=== PATIENT | male | born 1950 | race Caucasian/White ===

== ENCOUNTER → 2018-01-04 16:57 | Outpatient (CLI) | payer BC, SELFPAY ==
[2018-01-04 16:28] VITALS: BP 120/60; BMI 27.2
[2018-01-04 18:32] LABS: Anion Gap 8 (5-15); BUN 23 mg/dL (7-18); BUN/Creat Ratio 23.5 RATIO (10-20); Calcium,Total 8.9 mg/dL (8.5-10.1); Chloride 106 mmol/L (98-107); Creatinine, Serum 0.98 mg/dL (0.70-1.30); EST Glomerular Filtration Rate 82 mL/min (>60); Est Glom Filt Rate - Afr Amer 99 mL/min (>60); Glucose 86 mg/dL (74-106); Magnesium 2.2 mg/dL (1.6-2.6); Potassium 4.3 mmol/L (3.5-5.1); Sodium Level 140 mmol/L (136-145); T4 Total, Thyroxin 8.1 ug/dL (4.5-12.1); Thyroid Stim Hormone (TSH) 2.04 uIU/mL (0.358-3.74)
== END ==
PROVIDERS: Family Provider Family Medicine; PCP Family Medicine; Visit Provider Internal Medicine Cardiovascular Disease
DX: I25.5 Ischemic cardiomyopathy (principal)
CPT/HCPCS: 80048; 83735; 84436; 84443

== ENCOUNTER → 2018-02-04 06:40 | Outpatient (CLI) | payer BC, SELFPAY ==
--- NOTE | 2018-02-04 06:42 | ECHOD_ITS ---
Reason For Study: Arrhythmia Procedure This was a 2D Doppler, Color Flow transthoracic echocardiogram. Exam performed in department. Left Ventricle Normal LV size. The estimated ejection fraction is 37 %. Transmitral diastolic flow velocities suggest mild (stage 1) diastolic dysfunction (reversed pattern). Moderately severe segmental systolic dysfunction (see wall motion). Anterio-Basal: Normal. Lateral-Basal: Normal. Posterior- Basal: Akinetic. Infero-Basal: Akinetic. Basal inferoseptal: Severely Hypokinetic. Basal anteroseptal: Normal. Mid-Anterior : Hypokinetic. Mid-Lateral : Hypokinetic. Mid-Posterior: Akinetic. Mid-Inferior: Akinetic. Mid-inferoseptal : Mildly hypokinetic. [place] : Hypokinetic. Right Ventricle Normal RV size. ICD or pacer leads identified within the right ventricle. Normal systolic function. Atria Normal left atrium. Normal right atrium. Mitral Valve Normal mitral valve. Moderate (2+) eccentric mitral valve insufficiency. Tricuspid Valve Normal tricuspid valve. Mild to moderate (1-2+) tricuspid valve insufficiency. Pulmonary artery systolic pressure is 34 mmHg. Aortic Valve Trisinus/trileaflet aortic valve. Mild focal aortic valve calcification. Pulmonic Valve The pulmonic valve is not well visualized. Great Vessels Normal aortic root. The pulmonary artery is normal size. Normal inferior vena cava. Pericardium/Pleural No pericardial effusion. Medication Definity0.3ml given slow IV push to enhance endocardial definition. MMode/2D Measurements & Calculations LVIDd: 5.4 cm IVSd: 1.2 cm Ao root diam: 3.3 cm LVIDs: 4.4 cm LVPWd: 0.66 cm LA dimension: 5.1 cm RVDd: 3.4 cm FS: 18.4 % LAV(MOD-bp): 49.4 ml LA A4 area: 19.2 cm2 RA A4 area: 12.1 cm2 LAV(MOD-bp) Indexed: 25.3 ml/m2 LAV(MOD-sp2): 42.2 ml LAV(MOD-sp4): 54.2 ml Doppler Measurements & Calculations MV E max jake: 87.6 cm/sec Lat Peak E' Jake: 4.8 cm/sec Med Peak E' Jake: 6.6 cm/sec MV A max jake: 91.9 cm/sec E/E' lat: 18.1 E/E' med: 13.3 MV E/A: 0.95 Ao V2 max: 135.2 cm/sec LV V1 max: 87.6 cm/sec PA V2 max: 87.4 cm/sec Ao max P.3 mmHg LV V1 max P.1 mmHg TR max jake: 272.3 cm/sec TR max P.7 mmHg Interpretation Summary Normal LV size. The estimated ejection fraction is 37 %. Transmitral diastolic flow velocities suggest mild (stage 1) diastolic dysfunction (reversed pattern). Moderately severe segmental systolic dysfunction (see wall motion). Moderate (2+) eccentric mitral valve insufficiency. Pulmonary artery systolic pressure is 34 mmHg. Compared to the previous the MR is worse. Ordering Physician: Hans Logan Referring Physician: Joaquim Brush MD Performed By: Christine Azar RDCS
--- NOTE | 2018-02-04 10:06 | STRESSREP ---
Stress Test Report Exercise myocardial perfusion stress test. 67-year-old man with a history of coronary artery disease status post ICD implantation. Stress protocol: Resting EKG demonstrates sinus bradycardia with a rate of 55 bpm left bundle branch block pattern noted first-degree AV block present. Patient exercised according to the regular Michael protocol for total duration of 6 minutes. The maximum heart rate attained was 98 bpm which was 63% maximum predicted heart rate the maximum workload attained was 7 metabolic equivalents. The patient is noted to be on a beta-rosamaria and was instructed to take it. The patient maintained the left bundle branch block pattern throughout the recording no acute changes were noted. The resting blood pressure is 110/70 mmHg with a peak blood pressure 130/74 mmHg. No clinical angina was noted. Myocardial perfusion protocol. 10.9 mCi of technetium 99m sestamibi was injected at rest. The patient exercised according to regular Michael protocol attaining 7 metabolic equivalents at peak exercise 32.6 mCi of technetium 99m sestamibi was injected. Stress images were obtained. Stress and rest images were reconstructed and compared in the short axis vertical long and horizontal long axis. Gated images were also obtained. Perfusion SPECT analysis: Review of the cardiac silhouette demonstrates an upper normal size. The stress images demonstrated normal uptake of tracer noted in the anterior septum anterior wall and anterolateral wall. There is a large defect noted involving the basal to mid inferior wall as well as the inferior apical wall. There is a very small portion in the distal inferior wall with normal perfusion. The resting images appear to demonstrate a similar patent. The above is suggestive of an extensive previous inferior infarct and inferior apical infarct. No reversibility is noted suggest ischemia. Gated SPECT analysis: The gated ejection fraction is noted to be 30% with akinesis of the inferior wall. Apical dyskinesis cannot be completely excluded. Conclusion: Exercise myocardial perfusion stress test with no evidence of ischemia noted at a moderate workload. Ischemic cardiomyopathy present.
== END ==
PROVIDERS: Family Provider Family Medicine; PCP Family Medicine; Visit Provider Internal Medicine Cardiovascular Disease
DX: I25.5 Ischemic cardiomyopathy (principal)
CPT/HCPCS: 78452; 93017; 93306; A9500; Q9957; A4216

== ENCOUNTER → 2018-06-10 15:31 | Outpatient (CLI) | payer BC, SELFPAY ==
--- NOTE | 2018-06-10 15:38 | RAD_ITS ---
STUDY: X-RAY CHEST REASON FOR EXAM: Male, 67 years old. Preoperative. ICD generator change. TECHNIQUE: Portable chest COMPARISON: 11/25/2014 FINDINGS: Left pectoral single lead AICD device, stable. No cardiomegaly. Normal mediastinal silhouette. No effusion or pneumothorax. Clear lungs. Implanted electronic device in the left lateral chest wall. No acute osseous or upper abdominal process. RAD/Chest PA and Lateral IMPRESSION: No acute cardiopulmonary process. Electronically Signed: Joey Grove, at 15:44 EDT Tel , Service support ,
[2018-06-10 15:49] LABS: Bacteria 0 SEEN /hpf (None Seen); Mucous, Urine 0 SEEN /hpf (<or=2+); Red Blood Cells-Urine 0 SEEN /hpf (0-5); Squamous Epithelial Cells - UA 0 SEEN /hpf (0-5)
[2018-06-10 16:13] LABS: Hematocrit 48.5 % (40-54); Hemoglobin 16.7 g/dl (13.0-16.5); Mean Corp Hgb Conc 34.4 g/gl (32-36); Mean Corpuscular Hgb 30.1 pg (27.0-32.0); Mean Corpuscular Volume 87.5 fL (80-94); Mean Platelet Vol. 10.2 fl (6.2-12.0); Platelet Count 184 K/mm3 (150-450); RBC Distribution Width CV 13.2 % (11.6-14.6); RBC Distribution Width SD 42.7 fl (35.1-43.9); Red Blood Count 5.54 M/mm3 (4.6-6.2); White Blood Count 8.1 K/mm3 (4.4-11.0)
[2018-06-10 16:25] LABS: Scan Indicated on CBC? Y/N NO
[2018-06-10 16:46] LABS: International Normalized Ratio 1.2; Prothrombin Time (Protime)PT. 14.8 SECONDS (11.7-14.9)
[2018-06-10 17:09] LABS: Color, Urine Yellow (Yellow); Glucose, Dipstick NEGATIVE (Normal); Ketone-Dipstick Negative (Negative); Leukocyte Esterase-Dipstick 25 /ul (Negative); Nitrite-Dipstick Negative (Negative); Occult Blood-Urine Negative /ul (Negative); Protein-Dipstick Negative (Negative); Urine Bilirubin Dipstick Negative (Negative); Urine Clarity Clear (Clear); Urine Urobilinogen Normal (Normal); Urine pH 6.5 (5.0 - 8.0)
[2018-06-10 17:10] LABS: Anion Gap 7 (5-15); BUN 17 mg/dL (7-18); BUN/Creat Ratio 14.3 RATIO (10-20); Calcium,Total 9.3 mg/dL (8.5-10.1); Chloride 105 mmol/L (98-107); Creatinine, Serum 1.19 mg/dL (0.70-1.30); EST Glomerular Filtration Rate 65 mL/min (>60); Est Glom Filt Rate - Afr Amer 79 mL/min (>60); Glucose 87 mg/dL (74-106); Potassium 4.5 mmol/L (3.5-5.1); Sodium Level 140 mmol/L (136-145)
[2018-06-10 17:15] LABS: White Blood Cells 0-5 SEEN /hpf (0-5)
== END ==
PROVIDERS: Family Provider Family Medicine; PCP Family Medicine; Visit Provider Internal Medicine Cardiovascular Disease
DX: I49.8 Other specified cardiac arrhythmias (principal); I25.5 Ischemic cardiomyopathy; I49.01 Ventricular fibrillation; Z95.810 Presence of automatic (implantable) cardiac defibrillator
CPT/HCPCS: 36415; 71046; 80048; 81001; 85027; 85610

== ENCOUNTER 2018-06-23 08:08 | Day surgery (SDC) | payer BC, SELFPAY ==
[2018-06-22 08:42] VITALS: BMI 29.8
--- NOTE | 2018-06-23 10:49 | PCM.OP.BLANK ---
Operative Report Date of Procedure: 06/23/18 The patient has a single chamber ICD but over the years has now progressed to CHB with sinus rhythm. His RV pacing is 98% and NYHA Class III with EF 35%. I recommend revision to a dual chamber ICD with LV lead addition. He recognizes risks and benefits and agrees to proceed with revision at [facility]. Since he has a prior lead extraction in 2002 and has a new lead in place, I completed a left upper extremity venogram to exclude venous stenosis. Contrast shows bracheocephalic and cephalic as well as distal axillary veins are patent. In mid- left axillary vein the vein contour progresses superiorly, then medially and inferiorly with filling of the distal axillary vein/subclavian and inominate vein. The course of the vein is large caliper and adequate for 2 additional leads but the mid segment of the axillary vein is likely 100% occluded for a segment of about 2-2.5cm. No complications Device set to prior parameters and pt left the room in stable condition
--- NOTE | 2018-06-23 11:10 | OP.PCM_ITS ---
Operative Report Date of Procedure: 06/23/18 The patient has a single chamber ICD but over the years has now progressed to CHB with sinus rhythm. His RV pacing is 98% and NYHA Class III with EF 35%. I recommend revision to a dual chamber ICD with LV lead addition. He recognizes risks and benefits and agrees to proceed with revision at [facility]. Since he has a prior lead extraction in 2002 and has a new lead in place, I completed a left upper extremity venogram to exclude venous stenosis. Contrast shows bracheocephalic and cephalic as well as distal axillary veins are patent. In mid- left axillary vein the vein contour progresses superiorly, then medially and inferiorly with filling of the distal axillary vein/subclavian and inominate vein. The course of the vein is large caliper and adequate for 2 additional leads but the mid segment of the axillary vein is likely 100% occluded for a segment of about 2-2.5cm. No complications Device set to prior parameters and pt left the room in stable condition
== END 2018-06-23 10:50 | disposition home or self-care (01) ==
LOC: CLSP 08:09
PROVIDERS: Family Provider Family Medicine; PCP Family Medicine; Visit Provider Internal Medicine Cardiovascular Disease
DX: I25.10 Atherosclerotic heart disease of native coronary artery without angina pectoris (principal); I25.5 Ischemic cardiomyopathy; I49.01 Ventricular fibrillation; Z95.810 Presence of automatic (implantable) cardiac defibrillator; I25.2 Old myocardial infarction; Z87.891 Personal history of nicotine dependence; Z79.82 Long term (current) use of aspirin; Z79.899 Other long term (current) drug therapy
CPT/HCPCS: 36005; 75820; J7040; J7050; Q9967

== ENCOUNTER → 2018-07-19 12:52 | Outpatient (CLI) | payer BC, SELFPAY | PROVIDERS: Family Provider Family Medicine; PCP Family Medicine; Visit Provider Physician Assistant Medical | DX: I25.5 Ischemic cardiomyopathy (principal); M54.2 Cervicalgia; Z95.0 Presence of cardiac pacemaker | CPT/HCPCS: 71046; 93882 ==

== ENCOUNTER → 2018-07-20 16:21 | Outpatient (CLI) | payer BC, SELFPAY ==
[2018-07-20 17:55] LABS: Anion Gap 5 (5-15); BUN 17 mg/dL (7-18); BUN/Creat Ratio 17.4 RATIO (10-20); Calcium,Total 8.9 mg/dL (8.5-10.1); Chloride 105 mmol/L (98-107); Creatinine, Serum 0.98 mg/dL (0.70-1.30); EST Glomerular Filtration Rate 82 mL/min (>60); Est Glom Filt Rate - Afr Amer 99 mL/min (>60); Glucose 81 mg/dL (74-106); Potassium 4.6 mmol/L (3.5-5.1); Sodium Level 139 mmol/L (136-145)
== END ==
PROVIDERS: Family Provider Family Medicine; PCP Family Medicine
DX: I50.22 Chronic systolic (congestive) heart failure (principal)
CPT/HCPCS: 36415; 80048

== ENCOUNTER → 2018-07-28 12:51 | Outpatient (CLI) | payer BC, SELFPAY | PROVIDERS: Family Provider Family Medicine; PCP Family Medicine; Visit Provider Physician Assistant Medical | DX: I82.C11 Acute embolism and thrombosis of right internal jugular vein (principal) | CPT/HCPCS: 93971 ==

== ENCOUNTER → 2018-08-18 15:52 | Outpatient (CLI) | payer BC, SELFPAY ==
[2018-08-18 17:43] LABS: Anion Gap 7 (5-15); BUN 22 mg/dL (7-18); BUN/Creat Ratio 23.6 RATIO (10-20); Calcium,Total 8.8 mg/dL (8.5-10.1); Chloride 103 mmol/L (98-107); Creatinine, Serum 0.93 mg/dL (0.70-1.30); EST Glomerular Filtration Rate 86 mL/min (>60); Est Glom Filt Rate - Afr Amer 104 mL/min (>60); Glucose 79 mg/dL (74-106); Potassium 4.5 mmol/L (3.5-5.1); Sodium Level 136 mmol/L (136-145)
[2018-08-18 18:02] LABS: BNP,B-Type NATRIURETIC PEPTIDE 14.4 pg/mL (0-100)
== END ==
PROVIDERS: Family Provider Family Medicine; PCP Family Medicine; Visit Provider Internal Medicine Cardiovascular Disease
DX: I25.5 Ischemic cardiomyopathy (principal)
CPT/HCPCS: 36415; 80048; 83880

== ENCOUNTER → 2018-11-07 13:45 | Outpatient (CLI) | payer BC, SELFPAY ==
[2018-08-18 15:21] VITALS: BMI 30.5
--- NOTE | 2018-11-07 13:55 | ECHOD_ITS ---
Reason For Study: Ischemic CMP Procedure This was a 2D Doppler, Color Flow transthoracic echocardiogram. Exam performed in department. Left Ventricle Normal LV size. The estimated ejection fraction is 40 %. Stage 1 diastolic dysfunction. Mid- Posterior: Akinetic. Posterior-Basal: Akinetic. Infero-Basal: Akinetic. Mid-Inferior: Akinetic. [place] : Severely Hypokinetic. Right Ventricle Normal RV size. ICD or pacer leads identified within the right ventricle. Normal systolic function. Atria Normal left atrium. Normal right atrium. Mitral Valve Normal mitral valve. Mild-Moderate (1-2+) eccentric mitral valve insufficiency. Tricuspid Valve Normal tricuspid valve. Mild (1+) tricuspid valve insufficiency. Pulmonary artery systolic pressure is 30 mmHg. Aortic Valve Trisinus/trileaflet aortic valve. Mild focal aortic valve calcification. Pulmonic Valve Normal pulmonic valve. Great Vessels Normal aortic root. The pulmonary artery is normal size. Normal inferior vena cava. Pericardium/Pleural No pericardial effusion. MMode/2D Measurements & Calculations LVIDd: 6.4 cm IVSd: 1.3 cm Ao root diam: 3.4 cm LVIDs: 4.8 cm LVPWd: 0.55 cm RVDd: 3.5 cm FS: 24.4 % LAV(MOD-bp): 47.6 ml EDV(MOD-sp4): 167.9 ml EDV(MOD-sp2): 158.1 ml LAV(MOD-bp) Indexed: 26.0 ml/m2 ESV(MOD-sp4): 98.7 ml EF(MOD-sp2): 39.7 % LAV(MOD-sp2): 50.9 ml EF(MOD-sp4): 41.2 % LAV(MOD-sp4): 44.1 ml SV(MOD-sp4): 69.3 ml SV(MOD-sp2): 62.8 ml LA A4 area: 16.1 cm2 LA dimension(2D): 3.9 cm RA A4 area: 13.2 cm2 Doppler Measurements & Calculations MV E max jake: 80.3 cm/sec Lat Peak E' Jake: 3.6 cm/sec Med Peak E' Jake: 4.8 cm/sec MV A max jake: 114.0 cm/sec E/E' lat: 22.2 E/E' med: 16.6 MV E/A: 0.70 Ao V2 max: 156.0 cm/sec LV V1 max: 114.7 cm/sec PA V2 max: 91.3 cm/sec Ao max P.7 mmHg LV V1 max P.3 mmHg TR max jake: 249.6 cm/sec TR max P.0 mmHg Interpretation Summary Normal LV size. The estimated ejection fraction is 40 %. Stage 1 diastolic dysfunction. Mild (1+) tricuspid valve insufficiency. Pulmonary artery systolic pressure is 30 mmHg. Compared to previous study, the left ventricular systolic function is the same.. Ordering Physician: Hans Logan Referring Physician: Joaquim Brush MD Performed By: Christine Azar RDCS
--- NOTE | 2018-11-07 13:55 | VDUE_ITS ---
Reason For Study: F/U LT IJV clot Left Proximal Left jugular vein is spontaneous, widely patent, phasic, with no intraluminal echogenicity noted. Left subclavian vein is spontaneous, widely patent, phasic, with no intraluminal echogenicity noted. Left Arm Left axillary vein is spontaneous, patent, phasic, competent, compressible and demonstrates augmentation. Left brachial vein is compressible. Left cephalic vein is compressible. Left basilic vein is compressible. Left Lower Arm Left radial vein is compressible. Left ulnar vein is compressible. Interpretation Summary No evidence for acute deep venous thrombosis[left] upper extremity with patent and compressible cephalic and basilic veins. Ordering Physician: Jose Hicks MD Referring Physician: Hans Logan Performed By: Kim Bryson RVT ?
== END ==
PROVIDERS: Family Provider Family Medicine; PCP Family Medicine; Referring Provider Internal Medicine Cardiovascular Disease; Visit Provider Internal Medicine Cardiovascular Disease
DX: I25.5 Ischemic cardiomyopathy (principal); I82.C12 Acute embolism and thrombosis of left internal jugular vein
CPT/HCPCS: 93306; 93971

== ENCOUNTER → 2019-10-02 14:30 | Outpatient (CLI) | payer MEDICARE, OTHER, SELFPAY ==
[2019-05-30 11:34] VITALS: BMI 29.5
== END ==
PROVIDERS: Family Provider Family Medicine; PCP Family Medicine; Referring Provider Family Medicine; Visit Provider Family Medicine
DX: R30.0 Dysuria (principal)
CPT/HCPCS: 87077; 87086; 87088; 87186

== ENCOUNTER → 2019-12-12 06:26 | Outpatient (CLI) | payer MEDICARE, OTHER, SELFPAY ==
[2019-05-30 11:34] VITALS: BMI 29.5
--- NOTE | 2019-12-12 07:28 | ART_ITS ---
Reason For Study: PVD Procedure A bilateral lower extremity continuous wave Doppler with analog waveform analysis and ankle brachial indexes. Left Segmental Pressures Left brachial= 126mmHg. Left posterior tibial artery = 148mmHg. Left dorsalis pedis artery = 134mmHg. The left dorsalis pedis waveforms are triphasic. The left posterior tibial artery waveforms are triphasic. Right Segmental Pressures Right brachial= 121mmHg. Right posterior tibial artery = 136mmHg. Right dorsalis pedis artery = 136mmHg. The right dorsalis pedis waveforms are triphasic. The right posterior tibial artery waveforms are triphasic. Indices The right ankle brachial index by the dorsalis pedis is 1.08. The right ankle brachial index by the posterior tibial artery is 1.08. The left ankle brachial index by the posterior tibial artery is 1.17. The left ankle brachial index by the dorsalis pedis is 1.06. Interpretation Summary Triphasic Doppler waveforms are noted at ankle level bilaterally. Pulse-volume recordings appear satisfactory at ankle level bilaterally. Resting ankle-brachial indices are normal bilaterally. There is no evidence of significant arterial occlusive disease in the lower extremities bilaterally. Ordering Physician: Bora Brush Performed By: [facility]
--- NOTE | 2019-12-12 08:06 | US_ITS ---
PROCEDURES: ULTRASOUND AORTA REASON FOR EXAM: Male, 68 years old. AAA screening TECHNIQUE: Ultrasound evaluation of the aorta was performed with real-time and static argueta-scale imaging. COMPARISON: None. FINDINGS: The study is limited secondary to excessive bowel gas. There is no elongation or tortuosity of the abdominal aorta. Aorta measures: Proximal 2.6 cm. Middle 2.5 cm. Distal 1.7 cm. Aorta measure transversely: Proximal 1.8 cm. Middle 1.5 cm. Distal 1.3 cm. Right iliac artery measures: 1.2 cm. Right iliac artery measure transversely: 0.8 cm. Left iliac artery measures: 1.0 cm. Left iliac artery measure transversely: 0.7 cm. There is no demonstrated aneurysm.. US/US ABD AORTA SCREEN/AAA IMPRESSION: Normal abdominal aorta. Electronically Signed: Robbie Lockett MD at 17:20 EST , Service support ,
== END ==
PROVIDERS: Family Provider Family Medicine; PCP Family Medicine; Referring Provider Family Medicine; Visit Provider Family Medicine
DX: I73.9 Peripheral vascular disease, unspecified (principal); Z13.6 Encounter for screening for cardiovascular disorders
CPT/HCPCS: 76706; 93922

== ENCOUNTER 2019-12-20 12:00 | Outpatient (RCR) | payer MEDICARE, OTHER, SELFPAY ==
[2019-05-30 11:34] VITALS: BMI 29.5
--- NOTE | 2019-12-14 13:59 | HP.PTEVAL ---
Patient's Visit Information NICOL PHELPS is a 68 year old M referred to Physical Therapy by Bora Brush MD with a diagnosis of L gastroc strain. Date of Evaluation: 12/14/19 Physical Therapist: Dionisio Guzman, PT, ATC - Visit Plan Frequency: 2x /Week Duration: 3 Weeks Plan: I issued and reviewed HEP of gastroc and soleus stretches. DTR to L calf, foam and stick rollout, [place], bike, and HEP - Subjective Findings: Pt reports he has had R calf pain for 1 1/2 months. 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 Pt reports the pain was not bad at that time, but it has progressively worsened to the point where he is limited with exercise now. Pt reports most of his pain is in the muscle belly of his L calf. No PMHx. Pt reports he only has this pain on the treadmill. No tingling or numbness in L LE. No sleep difficulty secondary to pain. Pt does not stretch with exercise. 0/10 pain at rest, 8/10 when walking on the treadmill. - Pain L calf pain Pain Intensity (Out of 10): 0 Pain Intensity Range: 8 - Objective Neuro: B LE sensation is WNL to light touch. B patellar reflex= 2/3. Palpation: No obvious deformity present this date. ROM: R ankle df= 10, pf= 50; L ankle df= 10, pf= 50. MMT: B LE's are 5/5 throughout. Gait: No significant deviations at this time - Goals Goal 1:: Increase L LE flexibility x 1 grade to aid with decreasing pain. Goal Time Frame: 2-4 Weeks Goal 2:: Increase L ankle DF ROM x 5 degrees to aid with decreasing pain Goal Time Frame: 2-4 Weeks Goal 3:: I with HEP Goal Time Frame: 2-4 Weeks - Rehabilitation Potential Physical Therapy Diagnosis: L calf pain and limited flexibility secondary to L calf pain Rehabilitation Potential: Good - Anticipated Interventions Patient/Client Instruction: Educate patient on: Condition, Plan of Care For the Purpose of:: To improve self management Therapeutic Exercise to Include: Flexibilty training For the Purpose of:: To decrease pain, To increase ROM Manual Therapy Techniques to Include: Soft tissue mobilization For the Purpose of:: To decrease pain Thank you for the opportunity to evaluate your patient. For Medicare and Medicare HMO plans, please review the plan of care and approve it. It will need to be FAXED BACK to us at [phone] for Medicare purposes. For Medicare only, by signing this I certify the plan of care. Please let me know if there are questions or concerns regarding this plan of care. Physician Signature: Date:
--- NOTE | 2019-12-25 17:21 | HP.PT.NRP ---
HP - Discharge Summary (1) - Patient Information NICOL PHELPS was seen in my office for initial evaluation on 12/14/19. The following Plan of Care was established for this patient: Initial Frequency: 2x /Week Initial Duration: 3 Weeks - Anticipated Interventions Patient/Client Instruction: Educate patient on: Condition, Plan of Care For the Purpose of:: To improve self management Therapeutic Exercise to Include: Flexibilty training For the Purpose of:: To decrease pain, To increase ROM Manual Therapy Techniques to Include: Soft tissue mobilization For the Purpose of:: To decrease pain This patient was last seen in our office . Pertinent comments regarding their Physical therapy will appear below: Pt phoned the clinic on the date of 12/22/2019 to report he felt 100% and wanted to cancel further appointments. Pt is discharged At this point I will be discontinuing this patient from physical therapy. I would be happy to see this patient again in the future if found appropriate by the physician. Thank you! Dionisio Guzman, PT, ATC
== END 2019-12-20 19:00 | disposition home or self-care (01) ==
LOC: PT 12:00
PROVIDERS: PCP Family Medicine; Referring Provider Family Medicine; Visit Provider Family Medicine
DX: S86.111D Strain of other muscle(s) and tendon(s) of posterior muscle group at lower leg level, right leg, subsequent encounter (principal)
CPT/HCPCS: 97110; 97161

== ENCOUNTER → 2020-01-02 10:54 | Outpatient (CLI) | payer MEDICARE, OTHER, SELFPAY ==
[2020-01-02 10:21] VITALS: BMI 30.9
[2020-01-02 13:28] LABS: AST(SGOT) 26 U/L (15-37); Alanine Aminotransfer ALT/SGPT 36 U/L (16-61); Albumin, Serum 3.6 g/dL (3.2-5.0); Alkaline Phosphatase 72 U/L (45-117); Bilirubin, Direct 0.14 mg/dL (0.00-0.30); Cholesterol 180 mg/dL (200); Globulin 3.9 g/dL (2.2-4.2); High Density Lipoprotein 40 mg/dL; Protein, Total 7.5 g/dL (6.4-8.2); Triglycerides 111 mg/dL; Very Low Density Lipoprotein 22 mg/dL (5-40)
== END ==
PROVIDERS: PCP Family Medicine; Referring Provider Internal Medicine Cardiovascular Disease; Visit Provider Internal Medicine Cardiovascular Disease
DX: I25.10 Atherosclerotic heart disease of native coronary artery without angina pectoris (principal); E78.5 Hyperlipidemia, unspecified
CPT/HCPCS: 36415; 80061; 80076

== ENCOUNTER → 2020-01-12 11:52 | Outpatient (CLI) | payer MEDICARE, OTHER, SELFPAY ==
[2020-01-02 10:21] VITALS: BMI 30.9
--- NOTE | 2020-01-12 11:53 | ECHOCS_ITS ---
Reason For Study: CHF Procedure This was a 2D Doppler, Color Flow transthoracic echocardiogram. Exam performed in department. Left Ventricle Normal LV size. The estimated ejection fraction is 45 %. Stage 1 diastolic dysfunction. Mild to moderate segmental systolic dysfunction (see wall motion). Mid-Posterior: Akinetic. Mid-Inferior: Akinetic. Infero-Basal: Akinetic. Posterior-Basal: Akinetic. Mid-anteroseptal : Hypokinetic. The rest of the wall segments are normal. Right Ventricle Normal RV size. Normal systolic function. Atria Normal left atrium. Normal right atrium. Mitral Valve Normal mitral valve. Tricuspid Valve Normal tricuspid valve. Mild (1+) tricuspid valve insufficiency. Pulmonary artery systolic pressure is 27 mmHg. Pulmonic Valve The pulmonic valve is not well visualized. Great Vessels Normal aortic root. The pulmonary artery is normal size. Normal inferior vena cava. Pericardium/Pleural No pericardial effusion. Medication 22 gauge I.V. with prn adaptor inserted into left arm. Diluted definity 5.0ml given slow IV push to enhance endocardial definition. MMode/2D Measurements & Calculations LVIDd: 5.5 cm IVSd: 1.1 cm Ao root diam: 2.9 cm LVIDs: 4.5 cm LVPWd: 1.0 cm FS: 18.4 % LAV(MOD-bp): 46.1 ml LA A4 area: 15.7 cm2 LA dimension(2D): 3.7 cm LAV(MOD-bp) Indexed: 24.8 ml/m2 LAV(MOD-sp2): 47.3 ml LAV(MOD-sp4): 44.8 ml Time Measurements MV dec time: 0.19 sec Doppler Measurements & Calculations MV E max jake: 84.2 cm/sec Lat Peak E' Jake: 5.4 cm/sec Med Peak E' Jake: 4.6 cm/sec MV A max jake: 100.2 cm/sec E/E' lat: 15.7 E/E' med: 18.1 MV E/A: 0.84 Ao V2 max: 116.0 cm/sec LV V1 max: 88.3 cm/sec PA V2 max: 123.1 cm/sec Ao max P.4 mmHg LV V1 max P.1 mmHg TR max jake: 249.1 cm/sec TR max P.8 mmHg Interpretation Summary Normal LV size. The estimated ejection fraction is 45 %. Stage 1 diastolic dysfunction. Mild to moderate segmental systolic dysfunction (see wall motion). Mild (1+) tricuspid valve insufficiency. Compared to prior study, there is no significant change. Contrast injection was performed. Ordering Physician: Hans Logan Referring Physician: Joaquim Brush Performed By: Stephenie Gonzalez, SHARMIN, RVT
== END ==
PROVIDERS: PCP Family Medicine; Referring Provider Internal Medicine Cardiovascular Disease; Visit Provider Internal Medicine Cardiovascular Disease
DX: I25.10 Atherosclerotic heart disease of native coronary artery without angina pectoris (principal)
CPT/HCPCS: 93306; C8929

== ENCOUNTER → 2020-07-12 05:59 | Outpatient (CLI) | payer MEDICARE, OTHER, SELFPAY ==
[2020-07-02 09:54] VITALS: BMI 31.6
[2020-07-12 07:06] LABS: Absolute Lymphocyte Count 1.83 X10^3/uL (0.83-4.51); Absolute Neutrophil Count 4.8 X10^3/uL (2.0-7.7); Basophil# 0.04 X10^3/uL; Basophil% 0.5 % (0-1); Eosinophil# 0.32 X10^3/uL; Eosinophils% 4.1 % (0-5); Hematocrit 46.3 % (40-54); Hemoglobin 15.6 g/dL (13.0-16.5); Lymphocyte # 1.83 X10^3/ul (4.0); Lymphocyte % 23.6 % (19-41); Mean Corp Hgb Conc 33.7 g/dL (32-36); Mean Corpuscular Hgb 30.7 pg (27.0-32.0); Mean Corpuscular Volume 91.1 fL (80-94); Mean Platelet Vol. 10.3 fl (6.2-12.0); Monocyte# 0.74 X10^3/uL; Monocyte% 9.5 % (0-10); NRBC Flagged by Analyzer 0 % (0-5); Neutrophil # 4.79 X10^3/uL (2.7-7.7); Neutrophil % 61.9 % (47-70); Platelet Count 182 K/mm3 (150-450); RBC Distribution Width CV 12.8 % (11.6-14.6); RBC Distribution Width SD 42.5 fl (35.1-43.9); Red Blood Count 5.08 M/mm3 (4.6-6.2); White Blood Count 7.8 K/mm3 (4.4-11.0)
[2020-07-12 07:33] LABS: Magnesium 2.2 mg/dL (1.6-2.6)
[2020-07-12 07:36] LABS: AST(SGOT) 21 U/L (15-37); Alanine Aminotransfer ALT/SGPT 32 U/L (16-61); Albumin, Serum 3.6 g/dL (3.2-5.0); Alkaline Phosphatase 70 U/L (45-117); Bilirubin, Direct 0.14 mg/dL (0.00-0.30); Cholesterol 179 mg/dL (200); Globulin 3.8 g/dL (2.2-4.2); High Density Lipoprotein 37 mg/dL; Protein, Total 7.4 g/dL (6.4-8.2); Triglycerides 185 mg/dL; Very Low Density Lipoprotein 37 mg/dL (5-40)
[2020-07-12 07:46] LABS: ALB/GLOB Ratio 0.9 RATIO (0.9-2.4); AST(SGOT) 20 U/L (15-37); Alanine Aminotransfer ALT/SGPT 34 U/L (16-61); Albumin, Serum 3.6 g/dL (3.2-5.0); Alkaline Phosphatase 67 U/L (45-117); Anion Gap 7 (5-15); BUN 19 mg/dL (7-18); BUN/Creat Ratio 16.8 RATIO (10-20); Calcium,Total 8.9 mg/dL (8.5-10.1); Chloride 104 mmol/L (98-107); Creatinine, Serum 1.13 mg/dL (0.70-1.30); EST Glomerular Filtration Rate 69 mL/min (>60); Est Glom Filt Rate - Afr Amer 83 mL/min (>60); Globulin 3.8 g/dL (2.2-4.2); Glucose 93 mg/dL (74-106); PSA,Total - Annual Screen 2.81 ng/mL (0.00-4.00); Protein, Total 7.4 g/dL (6.4-8.2); Sodium Level 137 mmol/L (136-145); Thyroid Stim Hormone (TSH) 2.07 uIU/mL (0.358-3.74)
[2020-07-12 11:24] LABS: Vitamin D,25 Hydroxy 30.7 ng/mL
== END ==
PROVIDERS: Internal Medicine Cardiovascular Disease; Nurse Practitioner Family; PCP Family Medicine; Referring Provider Family Medicine; Visit Provider Family Medicine
DX: E78.00 Pure hypercholesterolemia, unspecified (principal); I25.10 Atherosclerotic heart disease of native coronary artery without angina pectoris; E78.5 Hyperlipidemia, unspecified; E55.9 Vitamin D deficiency, unspecified; I25.5 Ischemic cardiomyopathy; I47.2 Ventricular tachycardia; Z12.5 Encounter for screening for malignant neoplasm of prostate
CPT/HCPCS: 36415; 80053; 80061; 80076; 82306; 83735; 84153; 84443; 85025; G0103

== ENCOUNTER → 2020-10-01 14:02 | Outpatient (CLI) | payer MEDICARE, OTHER, SELFPAY ==
[2020-07-02 09:54] VITALS: BMI 31.6
[2020-10-01 17:48] LABS: Vitamin B12 503 pg/mL (211-911); Vitamin D,25 Hydroxy 23.6 ng/mL
[2020-10-01 18:04] LABS: Iron 110 ug/dL (65-175); Thyroid Stim Hormone (TSH) 1.14 uIU/mL (0.358-3.74)
== END ==
PROVIDERS: PCP Family Medicine; Referring Provider Family Medicine; Visit Provider Family Medicine
DX: R53.83 Other fatigue (principal); E55.9 Vitamin D deficiency, unspecified; I47.2 Ventricular tachycardia
CPT/HCPCS: 36415; 82306; 82533; 82607; 83540; 84403; 84443

== ENCOUNTER → 2020-10-29 07:38 | Outpatient (CLI) | payer MEDICARE, OTHER, SELFPAY ==
[2020-07-02 09:54] VITALS: BMI 31.6
[2020-10-29 08:16] LABS: Glucose GTT- Fasting 105 mg/dL (74-106)
[2020-10-29 09:10] LABS: Glucose GTT-30 minutes 149 mg/dL (110-170)
[2020-10-29 09:56] LABS: Glucose GTT- 1 Hour 195 mg/dL (120-170)
[2020-10-29 10:44] LABS: Glucose GTT- 2 Hour 126 mg/dL (70-120)
[2020-10-29 11:36] LABS: Glucose GTT- 3 Hour 126 mg/dL (74-106)
[2020-10-29 12:54] LABS: Glucose GTT- 4 Hour 34 mg/dL (74-106)
[2020-10-29 13:43] LABS: Glucose GTT- 5 Hour 68 mg/dL (74-106)
== END ==
PROVIDERS: PCP Family Medicine; Referring Provider Family Medicine; Visit Provider Family Medicine
DX: E16.2 Hypoglycemia, unspecified (principal)
CPT/HCPCS: 36415; 82951; 82952

== ENCOUNTER → 2021-10-21 06:41 | Outpatient (CLI) | payer MEDICARE, OTHER, SELFPAY ==
[2021-10-21 07:39] LABS: Glucose GTT- Fasting 100 mg/dL (74-106)
[2021-10-21 09:04] LABS: Glucose GTT-30 minutes 184 mg/dL (110-170)
[2021-10-21 09:05] LABS: Glucose GTT- 1 Hour 177 mg/dL (120-170)
[2021-10-21 10:31] LABS: Glucose GTT- 2 Hour 107 mg/dL (70-120)
[2021-10-21 12:18] LABS: Glucose GTT- 4 Hour 64 mg/dL (74-106)
[2021-10-21 12:21] LABS: Glucose GTT- 3 Hour 65 mg/dL (74-106)
[2021-10-21 12:57] LABS: Glucose GTT- 5 Hour 80 mg/dL (74-106)
== END ==
PROVIDERS: PCP Family Medicine; Referring Provider Family Medicine; Visit Provider Family Medicine
DX: E16.2 Hypoglycemia, unspecified (principal)
CPT/HCPCS: 36415; 82951; 82952

== ENCOUNTER 2021-12-18 10:38 | Day surgery (SDC) | payer MEDICARE, OTHER, SELFPAY ==
[2021-12-08 12:13] LABS: Bacteria 0 SEEN /hpf (None Seen); Mucous, Urine 0 SEEN /hpf (<or=2+)
[2021-12-08 13:04] LABS: Hematocrit 46.7 % (40-54); Hemoglobin 15.4 g/dL (13.0-16.5); Mean Corpuscular Hgb 30.2 pg (27.0-32.0); Mean Corpuscular Volume 91.6 fL (80-94); Mean Platelet Vol. 9.9 fl (6.2-12.0); Platelet Count 187 K/mm3 (150-450); RBC Distribution Width SD 43.3 fl (35.1-43.9); White Blood Count 8.1 K/mm3 (4.4-11.0)
[2021-12-08 13:06] LABS: Color, Urine Yellow (Yellow); Glucose, Dipstick Normal (Normal); Ketone-Dipstick Negative (Negative); Leukocyte Esterase-Dipstick 25 /ul (Negative); Nitrite-Dipstick Negative (Negative); Occult Blood-Urine Negative /ul (Negative); Protein-Dipstick Negative (Negative); Specific Gravity, Urine 1.015 (1.002-1.030); Urine Bilirubin Dipstick Negative (Negative); Urine Clarity Clear (Clear); Urine Urobilinogen Normal (Normal)
[2021-12-08 13:22] LABS: International Normalized Ratio 1.1; Prothrombin Time (Protime)PT. 13.2 SECONDS (11.7-14.9)
[2021-12-08 13:23] LABS: Red Blood Cells-Urine 0-5 SEEN /hpf (0-5); Squamous Epithelial Cells - UA 0-5 SEEN /hpf (0-5); White Blood Cells 0-5 SEEN /hpf (0-5)
[2021-12-08 13:52] LABS: Anion Gap 6 (5-15); BUN 18 mg/dL (7-18); BUN/Creat Ratio 16.7 RATIO (10-20); Calcium,Total 9.6 mg/dL (8.5-10.1); Chloride 104 mmol/L (98-107); Creatinine, Serum 1.08 mg/dL (0.70-1.30); EST Glomerular Filtration Rate 72 mL/min (>60); Est Glom Filt Rate - Afr Amer 87 mL/min (>60); Glucose 88 mg/dL (74-106); Potassium 4.1 mmol/L (3.5-5.1); Sodium Level 139 mmol/L (136-145)
[2021-12-08 13:55] LABS: AST(SGOT) 22 U/L (15-37); Alanine Aminotransfer ALT/SGPT 31 U/L (16-61); Albumin, Serum 3.7 g/dL (3.2-5.0); Alkaline Phosphatase 70 U/L (45-117); Bilirubin, Direct 0.15 mg/dL (0.00-0.30); Cholesterol 169 mg/dL (200); Globulin 3.9 g/dL (2.2-4.2); High Density Lipoprotein 40 mg/dL; Protein, Total 7.6 g/dL (6.4-8.2); Triglycerides 171 mg/dL; Very Low Density Lipoprotein 34 mg/dL (5-40)
[2021-12-17 07:55] VITALS: BMI 31.7
--- NOTE | 2021-12-18 12:29 | OP.PCM_ITS ---
Report of Operation Date of Procedure: 12/18/21 Description of Surgical Findings:: Diagnosis: Isch Cardiomyopathy with NYHA Class iii. ICD for primary prevention. Device generator replacement for normal battery depletion Preoperative diagnosis is device at end of life for normal battery depletion. Postoperative diagnosis same as above. After informed consent and IV antibiotics the patient was brought to the [facility] catheterization laboratory and the skin over the device was prepped and draped in the usual sterile manner. Intermittent boluses of Versed, and fentanyl were used for sedation and analgesia as well as 1% subcutaneous lidocaine. An incision was made over the pre-existing device. Using blunt and Bovie dissection the pocket was opened and the device was removed. Careful attention was paid not to injure the pre-existing leads. The leads were removed from the device header and they were interrogated. There is normal lead function. Hemostasis was obtained. The pocket was flushed with antibiotic solution. The sponge and needle count were correct. The new device was brought to the field. The leads were placed in the appropriate position in the header and secured by the set screw. The leads and the device were then placed in the pocket. The pocket was closed with a deep layer of running 2-0 Vicryl, a superficial layer of running 4-0 Vicryl, skin with Steri-Strips which were covered with a rolled 4 x 4 and Tegaderm. Patient left the room with the device programmed to proper parameters and there were no complications. The device is a biv icd chamber medtronic generator. All lead parameters were tested and found to be functionally normal. Lead and device serial and model numbers are available in the chart documents provided by the device company advertising sales representative procedure summary.
== END 2021-12-18 23:59 | disposition home or self-care (01) ==
LOC: CLSP 10:39
PROVIDERS: Nurse Practitioner Family; Nurse Practitioner Gerontology; PCP Family Medicine; Referring Provider Internal Medicine Cardiovascular Disease; Visit Provider Internal Medicine Cardiovascular Disease
DX: Z45.010 Encounter for checking and testing of cardiac pacemaker pulse generator [battery] (principal); I49.01 Ventricular fibrillation; I25.10 Atherosclerotic heart disease of native coronary artery without angina pectoris; I25.5 Ischemic cardiomyopathy; E78.5 Hyperlipidemia, unspecified; E66.9 Obesity, unspecified; Z68.31 Body mass index [BMI] 31.0-31.9, adult; Z95.5 Presence of coronary angioplasty implant and graft; Z95.810 Presence of automatic (implantable) cardiac defibrillator; Z79.82 Long term (current) use of aspirin; Z79.899 Other long term (current) drug therapy; Z87.891 Personal history of nicotine dependence
CPT/HCPCS: 33264; 36415; 80048; 80061; 80076; 81001; 85027; 85610; 87635; 93641; 99152; 99153; C9803; J7040; J7050; U0003; U0005

== ENCOUNTER → 2022-03-24 | Outpatient (CLI) | payer MEDICARE, OTHER, SELFPAY ==
--- NOTE | 2022-03-24 12:51 | RAD_ITS ---
EXAM: XR LEFT RIBS AND AP CHEST, 3 OR MORE VIEWS CLINICAL INDICATION: rib pain on left side fall, hit ribs on left anterior chest, pain patient states he has old pacer wires in left side x 20 years TECHNIQUE: Frontal and oblique views of the left ribs and frontal view of the chest. This report was created using [employer] report generation technology. COMPARISON: 07.19.18 FINDINGS: LUNGS AND PLEURAL SPACES: Unremarkable. No consolidation or edema. No pneumothorax. No effusion. HEART: Unremarkable. Cardiac silhouette not enlarged. MEDIASTINUM: Central airways and mediastinal contour are unremarkable. BONES/JOINTS: Unremarkable. No evidence of displaced rib fractures. TUBES, LINES AND DEVICES: There is a left sided pacemaker battery pack. Left chest abandoned leads are noted. RAD/Ribs Uni Min 3V w/PA Chest IMPRESSION: No acute findings in the chest or left ribs. Electronically Signed: Dionisio Joe MD at 17:23 EDT ,
== END | disposition home or self-care (01) ==
PROVIDERS: PCP Family Medicine; Referring Provider Family Medicine; Visit Provider Family Medicine
DX: R07.81 Pleurodynia (principal)
CPT/HCPCS: 71101

== ENCOUNTER → 2022-05-26 | Outpatient (CLI) | payer MEDICARE, OTHER, SELFPAY | END | disposition home or self-care (01) | PROVIDERS: PCP Family Medicine; Visit Provider Family Medicine | DX: Z20.822 Contact with and (suspected) exposure to COVID-19 (principal) | CPT/HCPCS: 87635; U0003; U0005 ==

== ENCOUNTER → 2022-07-02 | Outpatient (CLI) | payer MEDICARE, OTHER, SELFPAY | END | disposition home or self-care (01) | LOC: LABSPEC 16:13 | PROVIDERS: PCP Family Medicine; Visit Provider Family Medicine | DX: N39.0 Urinary tract infection, site not specified (principal) | CPT/HCPCS: 87077; 87086; 87088; 87186 ==

== ENCOUNTER → 2022-08-05 | Outpatient (CLI) | payer MEDICARE, OTHER, SELFPAY ==
--- NOTE | 2022-08-05 09:39 | STRESSREP_ITS ---
Stress Test Report Exercise myocardial perfusion stress test. 71-year-old male with a history of coronary artery disease status post ICD implantation. Resting EKG demonstrates normal sinus rhythm with a rate of 75 bpm and ventricular paced beats. Resting blood pressure is 144/90 mmHg. The patient exercised according to the regular Michael protocol for total duration of 6 minutes completing stage II of the Michael protocol. The maximum heart rate was 120 bpm which was 79% of max impacted heart rate the maximum workload was 7 metabolic equivalents. At rest there were no ST or T wave changes noted to suggest ischemia and at peak exercise no ST or T wave changes were noted to suggest ischemia. The peak blood pressure was noted to be 210/74 mmHg. Rate-p ressure product was 22,890. There were no EKG changes noted to suggest ischemia. Myocardial perfusion protocol. 11.7 mCi of technetium 99m sestamibi was injected at rest. The patient exercised according to regular Michael protocol for 6 minutes and at peak exercise 33.3 mCi of technetium 99m sestamibi was injected stress images were obtained stress and rest images were reconstructed and compared in the short axis vertical long and horizontal long axis. Gated images were also obtained. Perfusion SPECT analysis. Review of the images demonstrated dilated cardiac silhouette size. There is a medium size defect noted in the mid anterior wall and anteroseptal wall towards the apex. There is also a large defect involving the entire inferior wall and extending to the inferolateral segment. The resting images demonstrate a similar pattern. The above is suggestive of a distal anterior septal infarct as well as a large previous inferior infarct. No obvious ischemia is noted. Gated SPECT analysis: The gated ejection fraction is 39%. Conclusion: Dilated cardiomyopathy. Extensive inferior and inferolateral infarct with no ischemia. Moderate anterior and anteroseptal infarct.
== END | disposition home or self-care (01) ==
LOC: CVS 06:13
PROVIDERS: PCP Family Medicine; Referring Provider Internal Medicine Cardiovascular Disease; Visit Provider Internal Medicine Cardiovascular Disease
DX: Z95.5 Presence of coronary angioplasty implant and graft (principal); I25.10 Atherosclerotic heart disease of native coronary artery without angina pectoris
CPT/HCPCS: 78452; 93017; A9500; A4216

== ENCOUNTER → 2022-12-30 | Outpatient (CLI) | payer MEDICARE, OTHER, SELFPAY ==
[2022-12-30 12:49] LABS: AST(SGOT) 23 U/L (15-37); Alanine Aminotransfer ALT/SGPT 30 U/L (16-61); Albumin, Serum 3.7 g/dL (3.2-5.0); Alkaline Phosphatase 71 U/L (45-117); Bilirubin, Direct 0.13 mg/dL (0.00-0.30); Cholesterol 155 mg/dL (200); Globulin 3.8 g/dL (2.2-4.2); High Density Lipoprotein 40 mg/dL; Protein, Total 7.5 g/dL (6.4-8.2); Triglycerides 97 mg/dL; Very Low Density Lipoprotein 19 mg/dL (5-40)
== END | disposition home or self-care (01) ==
LOC: MTLAB 10:17
PROVIDERS: PCP Family Medicine; Referring Provider Nurse Practitioner Gerontology; Visit Provider Nurse Practitioner Gerontology
DX: E78.5 Hyperlipidemia, unspecified (principal)
CPT/HCPCS: 36415; 80061; 80076

== ENCOUNTER → 2023-01-01 | Outpatient (CLI) | payer MEDICARE, OTHER, SELFPAY ==
--- NOTE | 2023-01-01 12:41 | ECHOCS_ITS ---
Reason For Study: CMP Procedure This was a 2D Doppler, Color Flow transthoracic echocardiogram. The study was technically difficult. Contrast injection was performed. Exam performed in department. Left Ventricle Normal LV size. The estimated ejection fraction is 45 %. Stage 1 diastolic dysfunction. Mild to moderate segmental systolic dysfunction (see wall motion). There are regional wall motion abnormalities as specified. Mid-Posterior: Akinetic. Posterior-Basal: Akinetic. Infero-Basal: Akinetic. Mid-Inferior: Akinetic. Right Ventricle Normal RV size. Normal systolic function. Atria Normal left atrium. Normal right atrium. Mitral Valve Normal mitral valve. Tricuspid Valve Normal tricuspid valve. Aortic Valve The aortic valve is not well visualized. Pulmonic Valve The pulmonic valve is not well visualized. Great Vessels Normal aortic root. The pulmonary artery is normal size. Normal inferior vena cava. Pericardium/Pleural No pericardial effusion. Medication 22 gauge I.V. with prn adaptor inserted into right arm. Diluted definity 4.5ml given slow IV push to enhance endocardial definition. MMode/2D Measurements & Calculations LVIDd: 5.3 cm IVSd: 0.87 cm Ao root diam: 3.2 cm LVIDs: 4.7 cm LVPWd: 1.00 cm LA dimension: 4.1 cm RVDd: 3.6 cm FS: 10.7 % LAV(MOD-bp): 58.1 ml LVAd ap4: 36.3 cm2 LVAd ap2: 35.7 cm2 LAV(MOD-bp) Indexed: 31.1 ml/m2 LVLd ap4: 7.8 cm LVLd ap2: 8.2 cm LAV(MOD-sp2): 54.1 ml EDV(MOD-sp4): 138.3 ml EDV(MOD-sp2): 124.7 ml LAV(MOD-sp4): 57.1 ml EDV(sp4-el): 142.7 ml EDV(sp2-el): 131.7 ml LVAs ap4: 28.7 cm2 LVAs ap2: 25.7 cm2 LVLs ap4: 7.4 cm LVLs ap2: 6.8 cm ESV(MOD-sp4): 90.9 ml ESV(MOD-sp2): 79.9 ml ESV(sp4-el): 94.3 ml ESV(sp2-el): 82.3 ml EF(MOD-sp4): 34.3 % EF(MOD-sp2): 35.9 % EF(sp4-el): 33.9 % SV(MOD-sp4): 47.4 ml SV(MOD-sp2): 44.8 ml SV(sp4-el): 48.4 ml LA A4 area: 20.3 cm2 RA A4 area: 19.4 cm2 Time Measurements MV dec time: 0.17 sec Doppler Measurements & Calculations MV E max jake: 71.7 cm/sec Lat Peak E' Jake: 5.6 cm/sec Med Peak E' Jake: 6.5 cm/sec MV A max jake: 83.5 cm/sec E/E' lat: 12.7 E/E' med: 11.1 MV E/A: 0.86 MV V2 max: 112.2 cm/sec MV P1/2t max jake: 108.1 cm/sec Ao V2 max: 148.8 cm/sec MV max P.0 mmHg MV P1/2t: 68.4 msec Ao max P.9 mmHg MV V2 mean: 56.2 cm/sec Ao V2 mean: 103.8 cm/sec MV mean P.5 mmHg MV dec slope: 462.9 cm/sec2 Ao mean P.9 mmHg MV V2 VTI: 32.8 cm MVA(P1/2t): 3.2 cm2 Ao V2 VTI: 32.9 cm AV (velocity ratio): 0.75 LV V1 max: 123.1 cm/sec MR max jake: 546.6 cm/sec PA V2 max: 92.2 cm/sec LV V1 max P.1 mmHg MR max P.5 mmHg PA V2 mean: 65.7 cm/sec LV V1 mean P.2 mmHg MR mean jake: 441.7 cm/sec LV V1 mean: 83.1 cm/sec MR mean P.7 mmHg LV V1 VTI: 24.8 cm MR VTI: 190.2 cm ECHO/Echo Complete W/ Contrast Interpretation Summary Normal LV size. The estimated ejection fraction is 45 %. Stage 1 diastolic dysfunction. Mild to moderate segmental systolic dysfunction (see wall motion). Compared to previous study, the left ventricular systolic function is the same. . Contrast injection was performed. Ordering Physician: Venessa Kwan Referring Physician: Joaquim Brush Performed By: Yair Schmitt RCS
== END | disposition home or self-care (01) ==
LOC: CVS 12:39
PROVIDERS: PCP Family Medicine; Visit Provider Nurse Practitioner Gerontology
DX: I25.5 Ischemic cardiomyopathy (principal)
CPT/HCPCS: 93306; Q9957; A4216; C8929

== ENCOUNTER → 2024-07-11 | Outpatient (CLI) | payer MEDICARE, OTHER, SELFPAY ==
[2024-07-11 10:01] LABS: Erythrocyte Sedimentation Rate 4 mm/hr (0-20); Hematocrit 44.7 % (40-54); Hemoglobin 15.2 g/dL (13.0-16.5); Mean Corpuscular Hgb 30.2 pg (27.0-32.0); Mean Corpuscular Volume 88.9 fL (80-94); Mean Platelet Vol. 9.9 fl (6.2-12.0); Platelet Count 173 K/mm3 (150-450); RBC Distribution Width CV 12.9 % (11.6-14.6); RBC Distribution Width SD 41.6 fl (35.1-43.9); Red Blood Count 5.03 M/mm3 (4.6-6.2)
[2024-07-11 10:03] LABS: Vitamin B12 429 pg/mL (211-911)
[2024-07-11 12:25] LABS: ALB/GLOB Ratio 1.1 RATIO (0.9-2.4); AST(SGOT) 20 U/L (15-37); Alanine Aminotransfer ALT/SGPT 27 U/L (16-61); Albumin, Serum 3.7 g/dL (3.2-5.0); Alkaline Phosphatase 65 U/L (45-117); Anion Gap 7 (5-15); BUN 18 mg/dL (7-18); BUN/Creat Ratio 15.5 RATIO (10-20); Chloride 105 mmol/L (98-107); Cholesterol 135 mg/dL (200); Creatinine, Serum 1.16 mg/dL (0.70-1.30); EST Glomerular Filtration Rate 66 mL/min (>60); Est Glom Filt Rate - Afr Amer 80 mL/min (>60); Globulin 3.5 g/dL (2.2-4.2); Glucose 106 mg/dL (74-106); High Density Lipoprotein 43 mg/dL; Potassium 4.5 mmol/L (3.5-5.1); Protein, Total 7.2 g/dL (6.4-8.2); Sodium Level 135 mmol/L (136-145); Triglycerides 74 mg/dL; Very Low Density Lipoprotein 15 mg/dL (5-40)
== END | disposition home or self-care (01) ==
LOC: MFPLAB 08:49
PROVIDERS: PCP Family Medicine; Visit Provider Family Medicine
DX: I25.10 Atherosclerotic heart disease of native coronary artery without angina pectoris (principal); R41.3 Other amnesia; N40.0 Benign prostatic hyperplasia without lower urinary tract symptoms
CPT/HCPCS: 36415; 80053; 80061; 82607; 84153; 84443; 85027; 85652

== ENCOUNTER 2024-11-16 21:45 | Emergency (ER) | payer MEDICARE, OTHER, SELFPAY ==
[2024-11-16 21:51] VITALS: BP 148/83; PULSE 83; RESP 16; TEMP 36.7; O2SAT 96; BMI 29.0
--- NOTE | 2024-11-16 22:06 | EKG12_ITS ---
Test Reason : DYSRHYTHMIA Blood Pressure : */* mmHG Vent. Rate : 88 BPM Atrial Rate : 88 BPM P-R Int : 146 ms QRS Dur : 152 ms QT Int : 388 ms P-R-T Axes : 27 178 10 degrees QTcB Int : 469 ms Atrial-sensed ventricular-paced rhythm Biventricular pacemaker detected Abnormal ECG Confirmed by EFREN JOHANSEN, DAMIÁN ([id number]), graphics editor GERMAIN MAHONEY ([id number]) on 11/17/2024 8:14:47 AM Referred By: Confirmed By: DAMIÁN SCHWARTZ MD
--- NOTE | 2024-11-16 22:06 | CT_ITS ---
EXAM: CT HEAD WITHOUT INTRAVENOUS CONTRAST CLINICAL INDICATION: confusion TECHNIQUE: Multiple axial images were obtained of the head without intravenous contrast. This CT exam was performed using one or more of the following dose reduction techniques: automated exposure control, adjustment of the mA and/or kV according to patient size, and/or use of iterative reconstruction technique. COMPARISON: No relevant prior studies available. FINDINGS: BRAIN AND EXTRA-AXIAL SPACES: Global parenchymal volume loss although with disproportionate enlargement of the supratentorial ventricles compared to the sulci suggesting superimposed normal pressure hydrocephalus. There is non-specific periventricular hypoattenuation which is most commonly related to chronic microvascular ischemic disease in a patient of this age. There is no mass, mass-effect, or shift of the midline structures. No evidence of acute infarct or acute intracranial hemorrhage. There is no evidence of pathologic extra-axial fluid. Patent basal cisterns. BONES/JOINTS: No significant abnormality. No discrete lytic or blastic abnormalities. VASCULATURE: Arteriosclerosis. SINUSES: No significant findings. MASTOID AIR CELLS: No significant effusion. ORBITS: No acute findings. CT/Brain/Head without Contrast IMPRESSION: 1. Global parenchymal volume loss although with disproportionate enlargement of the supratentorial ventricles compared to the sulci suggesting superimposed normal pressure hydrocephalus. 2. Chronic microvascular ischemic changes. Electronically Signed: Rafita Chin DO at 23:18 EST ,
--- NOTE | 2024-11-16 22:08 | EDS_ITS ---
HPI History of Present Illness Chief Complaint: Confusion Informant: patient and EMS Narrative Narrative: 73-year-old male brought for altered mental status/confusion. Patient states he has been feeling disoriented today and he thinks it is because of the medication he was started on yesterday at his doctor's office. He does not know what it is. He thinks he may be because he was diagnosed with COVID 3 days ago. The only other new prescription that he has is tamsulosin which she has been on before but was off of it for a while and now is back on it. He has had no issues with that in the past. Apparently EMS said that they were called because of unusual behavior. The patient lives alone. He states he was not outside today, he does not know what that unusual behavior was. However, EMS said his neighbor called related to something he was doing outside, but he doesn't know what he was talking about. He does feel disoriented. When asked if he has been short of breath he says no. Then when asked if he has a cough he states yes, but only when I get out of breath. [facility] Medical History (Updated 11/17/24 @ 03:[address] 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 of inferior wall myocardial infarction (1992) Ischemic cardiomyopathy Paroxysmal ventricular fibrillation Abnormal electrocardiogram Bradycardia Anxiety Ventricular arrhythmia Home Medications ?Medication ?Instructions ?Recorded ?Last Taken ?Type aspirin 81 mg tablet,delayed 81 mg PO DAILY@0800 #30 tabs 11/27/14 Unknown Rx release cholecalciferol (vitamin D3) 50 2,000 unit PO QDAY 01/04/18 Unknown History mcg (2,000 unit) capsule tamsulosin 0.4 mg capsule 0.8 mg PO QHS 06/23/22 Unknown History nitroglycerin 0.4 mg sublingual 0.4 mg sublingual Q5M PRN 07/01/23 Unknown Rx tablet Cardiac/Chest Pain #25 tabs lisinopril 5 mg tablet 5 mg PO QDAY #90 tabs 02/21/24 Unknown Rx metoprolol succinate 25 mg 25 mg PO DAILY #90 tabs 03/06/24 Unknown Rx tablet,extended release 24 hr atorvastatin 40 mg tablet 40 mg PO QHS #90 tabs 10/09/24 Unknown Rx buspirone 5 mg tablet 5 mg PO BID 11/16/24 Unknown History Allergy/AdvReac Type Severity Reaction Status Date / Time No Known Allergies Allergy Verified 11/16/24 22:00 Family History Mother , 48 of lung cancer CAD (coronary artery disease) Cancer Father , age 56 CAD (coronary artery disease) Myocardial infarction Sudden cardiac Surgical History History of radiofrequency ablation procedure for cardiac arrhythmia (04/24/11) History of coronary angioplasty (1992) Presence of biventricular implantable cardioverter-defibrillator (ICD) (07/11/18) History of coronary artery stent placement (09/09/09) AICD (automatic cardioverter/defibrillator) present (05/1993) Social History Smoking Status: Former smoker ROS ROS ED Constitutional Constitutional ED: Denies chills or fever(s) Eyes Eyes: Denies change in vision or diplopia ENT ENT ED: Denies ear pain, rhinorrhea or sore throat Cardiovascular Cardiovascular: Denies chest pain or palpitations Respiratory/Chest Respiratory/Chest: Reports cough and dyspnea; Denies sputum Gastrointestinal Gastrointestinal: Denies abdominal pain, diarrhea, nausea or vomiting Genitourinary Genitourinary ED: Denies dysuria or hematuria Musculoskeletal Musculoskeletal: Denies back pain or neck pain Integumentary Denies abscess or rash Neurologic Neurologic: Reports as per HPI, behavior changes and confusion; Denies abnormal gait, abnormal speech, disequilibrium, dizziness, frequent falls, headache(s), paresthesias or weakness Psychiatric Psychiatric: Denies anxiety or suicidal thoughts EXAM Physical Exam Const Vital Signs: 11/16/24 21:51 11/16/24 23:22 11/16/24 23:26 Temperature 98.0 F Temperature Source Oral Pulse Rate 83 74 Respiratory Rate 16 20 H Blood Pressure 148/83 H 126/77 H Blood Pressure Mean 104 91 Pulse Ox 96 93 95 Oxygen Delivery Method Room Air 11/16/24 23:30 11/16/24 23:45 11/16/24 23:58 Temperature 98.0 F Temperature Source Pulse Rate 76 74 74 Respiratory Rate 18 21 H 18 Blood Pressure 126/77 H Blood Pressure Mean 93 Pulse Ox 96 94 96 Oxygen Delivery Method 11/17/24 02:18 Temperature Temperature Source Pulse Rate 73 Respiratory Rate 18 Blood Pressure Blood Pressure Mean Pulse Ox 98 Oxygen Delivery Method Positive well nourished and well developed General Appearance ED: well developed and NAD HEENT Reports moist mucous membranes normocephalic and atraumatic Eyes PERRL and EOMs intact bilaterally Neck full ROM and supple Resp normal respiratory effort Resp Narrative: Diffuse mild expiratory wheezes. Conversive in full sentences. Cardio regular rate, regular rhythm and no murmurs GI non-tender and non-distended Auscultation: normoactive bowel sounds Palpation: soft Back/Spine no CVA tenderness General Back: other FROM Extremity normal to inspection General Extremety ED: Negative for edema, pulses abnormal or tenderness General Extremity: Negative for edema or pulses abnormal Neuro oriented x3, CN's II-XII intact bilaterally and no sensory deficits noted Neuro Narrative: Initially disoriented to place as well as the year but redirectable. Engages in conversation. Most of it sounds reasonable, but some of the details are off, see HPI for example; limiting history somewhat. Sensorium / Orientation: awake and alert Motor Exam: strength 5/5 throughout Skin no rashes or lesions noted and no wounds MDM MDM MDM Narrative Medical decision making narrative: Nursing reviewed the patient's recently filled medications from local pharmacies, tamsulosin is the only 1. The patient suggesting that he may have gotten a medication from his doctor's office. I saw a recent MRI of the brain from about 2 weeks ago in the EMR, it shows diffuse atrophy consistent with dementia, and apparently it was obtained due to memory change. We asked the patient about this and he remembers this and his doctor told him that he may have some dementia. Obtained an acute mental status change workup, looking for primary BRICK [place] etiologies CT of the head was obtained, it shows nothing acute on my interpretation radiology is in agreement. Looking for infections, two-view chest x-ray negative on my interpretation for pneumonia, urinalysis unremarkable as well. Labs noted and unremarkable. No significant dehydration. Troponin within normal limits, EKG shows a paced rhythm. Liver enzymes unremarkable. His COVID test is indeed positive. He is oxygenating well 96-98% on room air. The rest of his vital signs are unremarkable and do not require emergent intervention. The patient said that he could not be admitted because he has his dog at home that he has to care for and it is late and he is not comfortable calling anyone to help care for his dog. Nursing was able to discuss with police who checked on his dog, there are urns present in the patient's house with the remains of the patient's dog, there is no living dog currently present. Given this patient's mental status, I think reasonable to admit him for further evaluation, then may be social work can see him and contact family in the morning. However after discussion with hospitalist, he cannot be admitted medically to the hospital because he does not have a medical reason to be ad mitted. He does have COVID but is not hypoxic, dyspnea, and the rest of his medical workup as above is normal. I do not think he meets any criteria to be admitted to a psychiatric hospital. Patient states he does not have any local family. He says he wants to go home, but he is cooperative and redirectable. It is unclear why he was sent here, so for now I feel it is best to observe him until morning when social work can get involved. Therefore he was admitted to ED observation until social work can evaluate him and help elucidate whether it is safe to discharge him home or not. History & Record Review Additional record(s) reviewed:: Prior labs (MRI brain 11/02/2024) Lab Data Attestation: I reviewed the patient's lab results. Labs: Laboratory Results - last 24 hr 11/16/24 22:30 WBC 7.8 RBC 5.22 Hgb 16.1 Hct 46.5 MCV 89.1 MCH 30.8 MCHC 34.6 RDW Std Deviation 43.3 RDW Coeff of Eloisa 13.2 Plt Count 146 L MPV 9.5 Immature Gran % (Auto) 0.400 Neut % (Auto) 72.6 H Lymph % (Auto) 9.9 L [place]ug[place] % (Auto) 15.8 H Eos % (Auto) 0.8 Baso % (Auto) 0.5 Absolute Neuts (auto) 5.7 Absolute Lymphs (auto) 0.77 L Nucleated RBC % 0 Sodium 136 Potassium 3.8 Chloride 104 Carbon Dioxide 27.0 Anion Gap 5 BUN 13 Creatinine 1.26 Estim Creat Clear Calc 52.13 Est GFR (MDRD) Af Amer 72 Est GFR (MDRD) Non-Af 60 BUN/Creatinine Ratio 10.3 Glucose 94 Calcium 9.4 Total Bilirubin 0.70 AST 22 ALT 32 Alkaline Phosphatase 72 Troponin I High Sens 20 Total Protein 7.7 Albumin 3.8 Globulin 3.9 Albumin/Globulin Ratio 1.0 Urine Color Yellow Urine Clarity Clear Urine pH 6.0 Ur Specific Belle 1.025 Urine Protein 30 H Urine Glucose (UA) Normal Urine Ketones 5 H Urine Occult Blood Negative Urine Nitrite Negative Urine Bilirubin Negative Urine Urobilinogen Normal Ur Leukocyte Esterase Negative Urine RBC 0 SEEN Urine WBC 0-5 SEEN Ur Squamous Epith Cells 0 SEEN Urine Bacteria RARE Urine Mucus 0 SEEN Radiography Diagnostic Testing: Clinical Impression(s) from Imaging Studies Brain CT 11/16/24 22:06 IMPRESSION: 1. Global parenchymal volume loss although with disproportionate enlargement of the supratentorial ventricles compared to the sulci suggesting superimposed normal pressure hydrocephalus. 2. Chronic microvascular ischemic changes. Electronically Signed: Rafita VElena Chin DO at 23:18 EST , Chest X-Ray 11/16/24 22:40 IMPRESSION: No acute findings in the chest. Electronically Signed: Rafita VElena Chin DO at 23:19 EST , Rhythm Strip Rhythm Strip: paced Rate: 88 Ectopy: None EKG Initial EKG: Attestation: I personally reviewed and interpreted this EKG as follows: Interpretation: No Acute Injury Pattern and Paced Management Discussion w/another healthcare provider: Hospitalist and slag worker/Case management Discharge Plan Dx/Rx/DC Orders Clinical Impression: COVID-19, Disorientation, unspecified Disposition Disposition: [facility]
[2024-11-16 22:38] LABS: Mucous, Urine 0 SEEN /hpf (<or=2+); Red Blood Cells-Urine 0 SEEN /hpf (0-5); Squamous Epithelial Cells - UA 0 SEEN /hpf (0-5)
--- NOTE | 2024-11-16 22:40 | RAD_ITS ---
EXAM: XR CHEST, 2 VIEWS CLINICAL INDICATION: cough sob TECHNIQUE: Frontal and lateral views of the chest. COMPARISON: 03/24/2022 FINDINGS: LUNGS AND PLEURAL SPACES: No significant abnormality. No consolidation or edema. No pneumothorax. No effusion. HEART: No significant abnormality. Cardiac silhouette not enlarged. MEDIASTINUM: Central airways and mediastinal contour are unremarkable. BONES/JOINTS: No significant abnormality. No acute fracture. SOFT TISSUES: No significant abnormality. TUBES, LINES AND DEVICES: Cardiac device on the left. Additional implanted electronic device in the left body wall. RAD/Chest PA and Lateral IMPRESSION: No acute findings in the chest. Electronically Signed: Rafita Chin DO at 23:19 EST ,
[2024-11-16 22:41] LABS: Absolute Lymphocyte Count 0.77 X10^3/uL (0.83-4.51); Absolute Neutrophil Count 5.7 X10^3/uL (2.0-7.7); Basophil# 0.04 X10^3/uL; Basophil% 0.5 % (0-1); Eosinophil# 0.06 X10^3/uL; Eosinophils% 0.8 % (0-5); Hematocrit 46.5 % (40-54); Hemoglobin 16.1 g/dL (13.0-16.5); Lymphocyte # 0.77 X10^3/ul (0.83-4.51); Lymphocyte % 9.9 % (19-41); Mean Corp Hgb Conc 34.6 g/dL (32-36); Mean Corpuscular Hgb 30.8 pg (27.0-32.0); Mean Corpuscular Volume 89.1 fL (80-94); Mean Platelet Vol. 9.5 fl (6.2-12.0); Monocyte# 1.23 X10^3/uL; Monocyte% 15.8 % (0-10); NRBC Flagged by Analyzer 0 % (0-5); Neutrophil # 5.65 X10^3/uL (2.7-7.7); Neutrophil % 72.6 % (47-70); Platelet Count 146 K/mm3 (150-450); RBC Distribution Width CV 13.2 % (11.6-14.6); RBC Distribution Width SD 43.3 fl (35.1-43.9); Red Blood Count 5.22 M/mm3 (4.6-6.2); White Blood Count 7.8 K/mm3 (4.4-11.0)
[2024-11-16 22:42] LABS: Color, Urine Yellow (Yellow); Glucose, Dipstick Normal (Normal); Ketone-Dipstick 5 mg/dl (Negative); Leukocyte Esterase-Dipstick Negative /ul (Negative); Nitrite-Dipstick Negative (Negative); Occult Blood-Urine Negative /ul (Negative); Protein-Dipstick 30 mg/dl (Negative); Specific Gravity, Urine 1.025 (1.002-1.030); Urine Bilirubin Dipstick Negative (Negative); Urine Clarity Clear (Clear); Urine Urobilinogen Normal (Normal)
[2024-11-16 22:57] LABS: Bacteria RARE /hpf (None Seen); White Blood Cells 0-5 SEEN /hpf (0-5)
[2024-11-16 23:01] LABS: AST(SGOT) 22 U/L (15-37); Alanine Aminotransfer ALT/SGPT 32 U/L (16-61); Albumin, Serum 3.8 g/dL (3.2-5.0); Alkaline Phosphatase 72 U/L (45-117); Anion Gap 5 (5-15); BUN 13 mg/dL (7-18); BUN/Creat Ratio 10.3 RATIO (10-20); Calcium,Total 9.4 mg/dL (8.5-10.1); Chloride 104 mmol/L (98-107); Creatinine, Serum 1.26 mg/dL (0.70-1.30); EST Glomerular Filtration Rate 60 mL/min (>60); Est Glom Filt Rate - Afr Amer 72 mL/min (>60); Estimated Creatinine Clearance 52.13 ml/min; Globulin 3.9 g/dL (2.2-4.2); Glucose 94 mg/dL (74-106); Potassium 3.8 mmol/L (3.5-5.1); Protein, Total 7.7 g/dL (6.4-8.2); Sodium Level 136 mmol/L (136-145); Troponin-I HS 20 pg/mL (3.0-78.0)
[2024-11-16 23:22] VITALS: O2SAT 93
[2024-11-16 23:26] VITALS: BP 126/77; PULSE 74; RESP 20; O2SAT 95
[2024-11-16 23:30] VITALS: PULSE 76; RESP 18; O2SAT 96
[2024-11-16 23:45] VITALS: PULSE 74; RESP 21; O2SAT 94
[2024-11-16 23:58] VITALS: BP 126/77; PULSE 74; RESP 18; TEMP 36.7; O2SAT 96
--- NOTE | 2024-11-17 00:27 | ED.RN ---
Per PD dispatch pts home was checked and the dog that pt was worried about feeding is in an urn on a table in pts house.
[2024-11-17 02:18] VITALS: PULSE 73; RESP 18; O2SAT 98
--- NOTE | 2024-11-17 02:55 | ED.RN ---
2300 Pt was concerned about being in the hospital because he had a dog at home and asked if the police could feed his dog. contacted [employer] contacted and they checked out the pt's dog situation.They stated that the pt doesnt have a live dog. Per [place] Police they examined the pt's home and talked to the pt's neighbors and found that the pt has an urn with his dog's ashes,but no live dog. was made aware of the above.
[2024-11-17 08:35] VITALS: BP 128/78; PULSE 83; RESP 18; O2SAT 97
[2024-11-17] MEDS: Lisinopril 5 MG Tablet PO (09:32)
[2024-11-17] MEDS: Metoprolol(XL)Succ 25 MG Tablet PO (09:33)
[2024-11-17] MEDS: Cholecalciferol (VIT D3) 25 MCG TABLET (1,000 UNITS) 50 MCG PO (09:33)
[2024-11-17] MEDS: Aspirin E.C. 81 MG Tablet PO (09:33)
[2024-11-17] MEDS: busPIRone 5 MG Tablet PO (09:33)
--- NOTE | 2024-11-17 11:32 | CM.ED ---
Social work Reason for referral: patient's confusion Referral source: Dr. Tom This SW was made aware by Dr. Tom and ict customer support officer Dominique of patient's presentation to [facility] ED and need for SW involvement. Dr. Tom stated he just spoke with patient's PCP, Dr. Brush, and patient started Buspar recently which reportedly could be contributing to patient's confusion. Dr. Brush confirmed that patient had a recent MRI at [facility] to confirm early signs of dementia. Dr. Tom reported patient being less confused than when patient initially arrived to the ED. Dr. Tom reminded this SW of patient's positive COVID status. This SW and CONCHA Soni entered patient's room in necessary PPE, introducing selves and roles at [facility]. Patient reported feeling okay, but being most concerned about his dog. Patient stated he had a dog at home that patient was concerned about due to patient being in the ED. This SW asked patient if he knew that police had been out to check on the dog and patient stated patient had not heard that. CONCHA Soni asked patient if he knew that when police checked on his dog, police reportedly found an urn with what was believed to be the dog's ashes. Patient stated he was unsure of this as well, but patient stated he assumed it could be possible due to patient's dog being 14 or 15 years old. This SW inquired about patient's family members and patient stated he did not have any family members that were living. Patient reported having one sister who was a heavy smoker and patient denied having any children of his own. Patient confirmed he lives alone in his house, [place] [address] [place] [address]. This SW inquired about patient's ability to maintain his own home and patient stated he was independent with all ADL's and patient denied issues. Per EMS, patient's home is reportedly clean. Patient reported feeling silly for being confused and disoriented, stating he was fine before taking the medication earlier in the week. Patient was able to state orientation to place, month, year, president, and patient's age. Patient reported not having any current or previous suicidal thoughts or attempts. 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 Patient denied having history of bipolar disorder, but patient admits to anxiety. Patient stated he has recently been diagnosed with dementia and has some anxiety regarding that diagnosis. Patient was able to reflect on his dementia diagnosis, stating that patient understands everyone is different in regard to how their bodies handle dementia. Patient expressed a desire to not be alive still if patient gets to the point where patient is unaware of what is going on around patient. Patient denied currently feeling suicidal and patient stated he was not anywhere near that point. CONCHA Soni encouraged patient to talk with Dr. Brush regarding patient's nursing home care goals and wishes as it could be possible to get hospice care involved sooner than later as patient?s dementia progresses. 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 Patient stated he works with Dr. Brush to keep patient's medication organized and patient reports having a heart doctor that he has not seen in quite awhile. Per medical records, patient struggled with some heart issues in 2013. By end of conversation, patient voiced feeling embarrassed thinking his dog was alive, reporting that has awareness that his dog is likely , as well as over the last couple of days trying to call people who were . Patient reports to feel things got mixed up fast in his mind, and attributes this to the new medication his PCP started. Patient reports to feel better and starting to think more clearly since being in the hospital. Patient stated his neighbor, Km, is a good friend and support for patient. Patient provided Km's number ([phone]) and agreed that Km should be an emergency contact for Km; number added to chart. Patient reported Km as being out of town until after Ham and patient stated he did not have anyone else who could check in on patient over the weekend. Patient accepted resources of [facility] and a [facility] referral. Patient denied a current need for a medical alert button; patient stated this was a good idea but patient expressed a desire to get his mind cleared up before adding too many things in. Discussed with patient as to how patient could get home and what patient would do in case of an emergency. Patient able to state he can take a taxi home and showed this SW money in his wallet. Reports can always call his doctor if in an emergency. CONCHA reminded patient can also call 911. Patient expressed understanding. Note, patient was well groomed and clean, with well cared for clothing on. No signs of neglect of self noted. Dr. Escobar and patient's nurse, Colin, updated. Colin agreed to provide patient written resources with patient's discharge paperwork. Doctor with intent to discharge home. Resources/supports set up: This SW called Rivera Tinajero with [facility] ([phone]) and explained patient's situation. Rivera stated she would be able to have a nurse go to patient's home the week after [place] and Rivera stated she would call Dr. Brush to start receiving records. Patient provided with brochure for [facility] with written statement that someone would be in contact with patient the week after Ham. Called Hola at [facility] ([phone]) and left a voicemail asking for a return call. Received return call and explained patient's situation. Hola stated she would have someone follow up with patient at his home on either Tuesday 11/20 or Wednesday 11/21 to check in and see what resources could be provided. Referral made to [facility] via online referral system. Patient provided with written information on this with a written reminder that someone would be calling to set up an appointment. Ivette Garrett, MANAGER FILM, [employer]ON SIGN SERVICER
--- NOTE | 2024-11-17 13:26 | CM.ED ---
Social Work Received call from patient's former Boss/coworker Ramiro Jose ([phone]) checking on status of patient. 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 Patient also thought it was 1982. Ramiro reports to know that patient has no children, had a sister who passed, and is not aware of patient having any family. Ramiro and Adis would like to visit patient at hospital if patient is going to be admitted. Due to Ramiro seeming to know details of patient's life, as well as such limited support for the patient, did acknowledge patient was going to be discharge from the ED and that cognition appeared improved to last evening. Without going into any details of medical issue/diagnoses/testing, this literary writer let Ramiro know [facility] is working to set up some follow up for patient with community supports. Ramiro reports he and Adis have a network of people and will reach out to patient this weekend to check on patient. Thanked Ramiro for concern for patient and for willingness to check on patient's wellbeing. See prior SW note from 11.17.24 for details of SW interventions completed and interactions with patient. -MARYANN Thomas
--- NOTE | 2024-11-20 10:04 | CCN.REFER ---
PATIENT DECLINING CCN WEEKLY HOME VISITS. STATES I AM FEELING 100% BETTER, SO I DO NOT NEED ANYONE TO COME CHECK ON ME EDUCATION PROVIDED ON CCN SERVICES AND THIS RN LEFT PHONE NUMBER TO CALL IF PATIENT CHANGES HIS MIND.
--- NOTE | 2024-11-23 10:58 | CM.ED ---
Social work Received secure email today from Jessie Bowser from [facility] stating the referral was received. Per the secure email, patient reportedly called [facility] back and stated he was not interested in services at this time. Ivette Garrett, RETAIL SALES ASSISTANT, REFLECTOR [employer]
== END 2024-11-17 11:41 | disposition home or self-care (01) ==
PROVIDERS: Emergency Provider Emergency Medicine; PCP Family Medicine; Visit Provider Emergency Medicine
DX: U07.1 COVID-19 (principal); R41.0 Disorientation, unspecified; I25.2 Old myocardial infarction; I25.5 Ischemic cardiomyopathy; I25.10 Atherosclerotic heart disease of native coronary artery without angina pectoris; F41.9 Anxiety disorder, unspecified; E78.5 Hyperlipidemia, unspecified; Z95.5 Presence of coronary angioplasty implant and graft; Z79.82 Long term (current) use of aspirin; Z79.899 Other long term (current) drug therapy; Z95.810 Presence of automatic (implantable) cardiac defibrillator; Z87.891 Personal history of nicotine dependence
CPT/HCPCS: 70450; 71046; 80053; 81001; 84484; 85025; 87631; 93005; 99285

== ENCOUNTER → 2025-06-15 | Outpatient (CLI) | payer MEDICARE, OTHER, SELFPAY ==
--- NOTE | 2025-06-15 07:11 | ECHOCS_ITS ---
Reason For Study Reason For Study: Isch CMP Procedure This was a 2D Doppler, Color Flow transthoracic echocardiogram. Exam performed in department. Left Ventricle Normal LV size. Stage 1 diastolic dysfunction. Segmental dysfunction of left ventricle, multiple coronary distributions. The left ventricular ejection fraction is 40 %. Mid-Lateral : Akinetic. Lateral- Basal: Akinetic. Mid-Anterior : Normal. Anterio-Basal: Normal. Mid-Posterior: Dyskinetic. Eclectic : Hypokinetic. There are regional wall motion abnormalities as specified. Right Ventricle Normal RV size. ICD or pacer leads identified within the right ventricle. Normal systolic function. Atria Normal left atrium. Normal right atrium. Mitral Valve There is mild mitral annular calcification. Mild-Moderate (1-2+) eccentric mitral valve insufficiency. Tricuspid Valve Normal tricuspid valve. Mild tricuspid valve insufficiency. Pulmonary artery systolic pressure is 25 mmHg. Aortic Valve Trisinus/trileaflet aortic valve. Pulmonic Valve Normal pulmonic valve. Great Vessels Normal sized aortic root. The pulmonary artery is normal size. Inferior vena cava collapse with respiration. Pericardium/Pleural No pericardial effusion. MMode/2D Measurements & Calculations LVIDd: 6.6 cm IVSd: 1.2 cm Ao root diam: 3.1 cm LVIDs: 5.4 cm LVPWd: 0.53 cm FS: 18.7 % LAV(MOD-bp): 52.7 ml LVAd ap4: 43.5 cm2 LVAd ap2: 38.9 cm2 LAV(MOD-bp) Indexed: 31.0 ml/m2 LVLd ap4: 8.2 cm LVLd ap2: 8.6 cm LAV(MOD-sp2): 39.7 ml EDV(MOD-sp4): 185.5 ml EDV(MOD-sp2): 147.9 ml LAV(MOD-sp4): 66.8 ml EDV(sp4-el): 195.7 ml EDV(sp2-el): 150.2 ml LVAs ap4: 34.5 cm2 LVAs ap2: 27.8 cm2 LVLs ap4: 7.9 cm LVLs ap2: 7.9 cm ESV(MOD-sp4): 129.8 ml ESV(MOD-sp2): 84.1 ml ESV(sp4-el): 128.3 ml ESV(sp2-el): 83.1 ml EF(MOD-sp4): 30.0 % EF(MOD-sp2): 43.1 % EF(sp4-el): 34.5 % SV(MOD-sp4): 55.6 ml SV(MOD-sp2): 63.7 ml SV(sp4-el): 67.4 ml SI(MOD-sp4): 32.7 ml/m2 SI(MOD-sp2): 37.5 ml/m2 LA A4 area: 20.7 cm2 LA dimension(2D): 4.1 cm RA A4 area: 12.5 cm2 TAPSE: 1.5 cm Doppler Measurements & Calculations MV E max jake: 78.1 cm/sec Lat Peak E' Jake: 4.8 cm/sec Med Peak E' Jake: 6.1 cm/sec MV A max jake: 104.6 cm/sec E/E' lat: 16.1 E/E' med: 12.7 MV E/A: 0.75 Ao V2 max: 138.8 cm/sec LV V1 max: 90.6 cm/sec PA V2 max: 90.6 cm/sec Ao max P.7 mmHg LV V1 max P.3 mmHg TR max jake: 232.0 cm/sec TR max P.5 mmHg ECHO/Echo Complete W/ Contrast Interpretation Summary Normal LV size. Stage 1 diastolic dysfunction. Segmental dysfunction of left ventricle, multiple coronary distributions. The left ventricular ejection fraction is 40 %. Contrast injection was performed. Ordering Physician: Timoteo Keen Referring Physician: Joaquim Brush MD Performed By: Christine Azar RDCS and Student
--- OUTSIDE RECORDS SUMMARY | 2025-06-15 07:13 | XMS RPT_ITS | CCD ---
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 Bora Brush Primary Care Provider Dr. Bora Brush Referring Provider Blessing Gan Attending Provider Unavailable VERONICA Kwan NP Attending Provider Dr. Hans Logan Referring Provider [phone] Hans Logan Other Provider VERONICA Kwan NP Other Provider Dr. Miles Becerril Attending Provider [phone] Hans Logan Attending Provider Dr. Bora Brush Primary Care Provider Dr. Bora Brush Referring Provider Blessing Gan Attending Provider Unavailable Dr. Hans Logan Attending Provider [phone] Doreen, Dr. Maxwell Referring Provider [phone] Doreen, Dr. Maxwell Other Provider Dr. Bora Brush Primary Care Provider Dr. Hans Logan Attending Provider [phone] Doreen, Dr. Maxwell Referring Provider [phone] Bora Brush Referring Provider Aquiles FOOD SERVICE ASSISTANT, FOOD SERVICE ASSISTANT-C Venessa Attending Provider ISABEL BRUSH Referring Unavailabl e ISABEL BRUSH Attending Unavailabl e ISABLE BRUSH Primary Care Unavailabl e ISABEL BRUSH Primary Care Unavailabl e ISABEL BRUSH Referring Unavailabl e ISABEL BRUSH Attending Unavailabl Isabel Alexandre MD Primary Care Provider NISHA WEEKS Attending Unavailable ISABEL BRUSH Referring Unavailabl e ISABEL BRUSH Primary Care Unavailabl e Dr. Isabel Brush MD Primary Care Provider Negro JOHANSEN, Dr. Cordova Attending Provider Dr. Art Tom MD Emergency Provider Doreen JOHANSEN, Dr. Maxwell Attending Provider Doreen JOHANSEN, Dr. Maxwell Referring Provider [phone] Dr. Isabel Brush MD Attending Provider [phone] Doreen JOHANSEN, Dr. Maxwell Other Provider [phone] Trudi JOHANSEN, Dr. March Primary Care Provider Dr. Isabel Brush MD Referring Provider Dr. Siddhartha León MD Attending Provider Shelbi FOOD SERVICE ASSISTANT-C, Corine Attending Provider [phone] Isabel Brush Primary Care Unavailable Venessa Kwan NP Attending Unavailable Isabel Brush Referring Unavailable Hans Logan Referring Unavailable Doreen, Hans Attending Unavailable [facility] Unavailable Demiter, Timoteo Attending Unavailable Ranney, Christopher Referring Unavailable [facility] Unavailable Corine Mario Attending Unavailable [facility] Unavailable Art Tom Attending Unavailable [facility] Unavailable Demiter, Timoteo Attending Unavailable Demiter, Timoteo Referring Unavailable Ran[facility] Unavailable [facility] Unavailable Doreen, Hans Consulting Unavailable Ranney, Christopher Attending Unavailable Ran[facility] Unavailable Ranney, Christopher Attending Unavailable [facility] Unavailable Siddhartha León Attending Unavailable Ranney, Christopher Referring Unavailable [facility] Unavailable Doreen, [place] Attending Unavailable Doreen, Hans Referring Unavailable [facility] Unavailable Doreen, Hans Attending Unavailable Doreen, Hans Referring Unavailable Doreen, [place] Referring Unavailable [facility] Unavailable Doreen, [place] Attending Unavailable Allergies Allergy Classification Reported Allergen(s) Allergy Type Date of Onset Reaction(s) Facility Nitroimidazoles (antibiotic) (1 source) metroNIDAZOLE Drug Allergy 08-27-20 11 Other: See Comments [facility] Work Phone: Quinolones (antibiotic) (1 source) Ciprofloxacin Drug Allergy 08-27-20 11 Intolerance [facility] Work Phone: Unclassified (4 sources) mycins? [Other] Propensity to adverse reactions 11-08-20 [facility] Work Phone: (4 sources) Ciprofloxacin; Translations: [CIPROFLOXACIN] Drug Allergy 08-27-20 11 Intolerance [facility] Work Phone: (4 sources) metroNIDAZOLE; Translations: [METRONIDAZOLE HCL] Drug Allergy 08-27-20 11 Other: See Comments [facility] (1 source) OTHER; Translations: [OTHER] Propensity to adverse reactions (disorder) 11-08-20 [facility] Medications Current Medications Medication Drug Class(es) Dates Sig (Normalized) Sig (Original) cholecalciferol 0.05 mg oral capsule (19 sources) Vitamin D Start: 01-04-2018 take 1 capsule by mouth once daily Cholecalciferol (Vitamin D3) 2,000 unit capsule Active 2000 U PO daily January 04, 2018 1:00am Start: 12-15-2016 take 1 tablet by carmen th once daily VITAMIN D 2000 UNIT TABS One tablet by mouth daily CHOLECALCIFEROL [id number] Hans Logan MD cholecalciferol (VITAMIN D3) 50 mcg (2,000 unit) tablet Take 2,000 Units by mouth. Active mirtazapine 15 mg oral tablet (3 sources) Start: 05-01-2025 take 1 tablet by mouth at bedtime Mirtazapine 15 mg tablet Active 15 mg PO AT BEDTIME May 01, 2025 12:00am take 1 tablet by carmen th once daily at bedtime mirtazapine (REMERON) 15 mg tablet Take 15 mg by mouth daily at bedtime. Active tamsulosin hydrochloride 0.4 mg oral capsule (20 sources) alpha-Adrenergic Juani Start: 01-27-2025 tamsu losin (FLOMAX) 0.4 mg 01/27/2025 Active Start: 06-23-2022 take 2 tablets by mo uth once daily in the evening Tamsulosin Active 0.8 MG PO AT BEDTIME June 23, 2022 1:38pm 2 tabs qpm Start: 08-27-2021 End: 06-23-2022 take 2 tablets by mouth once daily in the evening Tamsulosin 0.4 mg capsule Active 0.8 mg PO AT BEDTIME June 23, 2022 2:38pm 2 tabs qpm Start: 01-02-2020 End: 08-27-2021 take 1 capsule by mouth at bedtime Tamsulosin 0.4 mg capsule Discontinued 0.4 mg PO AT BEDTIME January 02, 2020 1:00am August 27, 2021 3:26pm Completed/Discontinued Medications Medication Drug Class(es) Dates Sig (Normalized) Sig (Original) aspirin 325 mg oral tablet (20 sources) Nonsteroidal Anti-inflammatory Drug Start: 04-14-2011 take 1 tablet by mouth once daily Aspirin 81 MG tablet Active 81 mg PO DAILY@0800 30 November 27, 2014 1:00am Start: 04-14-2011 End: 11-27-2014 take 1 tablet by mouth once daily Aspirin 325 MG tablet Discontinued 325 mg PO DAILY@0800 November 25, 2014 1:00am November 27, 2014 10:42am Start: 04-14-2011 take 1 tablet by carmen th once daily ASPIRIN 81 MG TABS One tablet by mouth daily ASPIRIN [id number] Jaleesa Leong RN Start: 04-14-2011 take 1 tablet by carmen th once daily ASPIRIN 81 MG TABS One tablet by mouth daily ASPIRIN [id number] Jaleesa Leong RN atorvastatin 40 mg oral tablet (20 sources) HMG-CoA Reductase Inhibitor Start: 12-30-2022 End: 10-09-2024 take 1 tablet by mouth at bedtime Atorvastatin 40 mg tablet Discontinued 40 mg PO AT BEDTIME 2023 4:22pm October 09, 2024 9:59am Start: 06-10-2010 End: 12-30-2022 take 1 tablet by mouth at bedtime Atorvastatin 20 mg tablet Discontinued 20 mg PO AT BEDTIME January 21, 2022 1:58pm December 30, 2022 1:56pm busPIRone hydrochloride 5 mg oral tablet (2 sources) Start: 11-16-2024 End: 11-17-2024 take 1 tablet by mouth twice daily Buspirone 5 mg tablet Discontinued 5 mg PO TWICE A DAY November 16, 2024 1:00am November 17, 2024 9:02am CLONAZEPAM TABS (20 sources) Benzodiazepine Start: 02-09-2012 End: 08-24-2012 KLONOPIN TABS 0.5 in the am, 0.5 in the afternoon, 0.25 at night CLONAZEPAM TABS [id number] Hans Logan MD Start: 02-09-2012 KLONOPIN TABS 0.5 in the am, 0.5 in the afternoon, 0.25 at night CLONAZEPAM TABS [id number] Hans Logan MD Start: 02-09-2012 End: 08-24-2012 KLONOPIN TABS 0.5 in the am, 0.5 in the afternoon, 0.25 at night CLONAZEPAM TABS [id number] Hans Logan MD Start: 02-09-2012 KLONOPIN TABS 0.5 in the am, 0.5 in the afternoon, 0.25 at night CLONAZEPAM TABS [id number] Hans Logan MD Start: 04-14-2011 take 1 tablet by carmen th once daily KLONOPIN TABS 0.25mg, Three tablets by mouth daily CLONAZEPAM TABS [id number] Jazmin Hector clopidogrel 75 mg oral tablet (20 sources) [id number] Platelet Inhibitor Start: 09-20-2009 End: 07-19-2018 take 1 tablet by mouth once daily Clopidogrel 75 MG tablet Discontinued 75 mg PO DAILY February 15, 2018 11:08am July 19, 2018 1:38pm Cranberry (5 sources) Non-Standardized Food Allergenic Extract, Non-Standardized Plant Allergenic Extract Start: 06-23-2022 End: 07-01-2023 take 1 capsule by mouth twice daily at mealtime Cranberry 500 mg capsule Discontinued 500 mg PO TWICE A DAY June 23, 2022 12:00am July 01, 2023 3:18pm administer with meals Start: 06-23-2022 take 500 mg by mouth twice daily at mealtime Cranberry Active 500 MG PO TWICE A DAY June 22, 2022 11:00pm administer with meals Start: 06-23-2022 take 500 mg by mouth twice daily at mealtime Cranberry Active 500 MG PO TWICE A DAY June 23, 2022 12:00am administer with meals diazePAM 2 mg oral tablet (20 sources) Benzodiazepine Start: 04-13-2014 End: 06-06-2015 DIAZEPAM 2 MG TABS 1.1 mg (tapering down) DIAZEPAM [id number] Soco Zapata PA-C Start: 04-13-2014 DIAZEPAM 2 MG TABS 1.3 mg daily DIAZEPAM [id number] Soco Zapata PA-C Start: 04-13-2014 DIAZEPAM 2 MG TABS 1.5 mg daily DIAZEPAM [id number] Hans Logan MD Start: 09-05-2013 DIAZEPAM 2 MG TABS 6 mg daily DIAZEPAM [id number] Hans Logan MD Start: 05-02-2013 End: 02-06-2025 diazepam (VALIUM) 2 mg table t Take 1 tablet by mouth twice daily. 4.5mg BID 05/02/2013 02/06/2025 Discontinued (Patient chooses alternative therapy) Start: 03-07-2013 take 1 tablet by carmen twice daily DIAZEPAM 5 MG TABS One tablet by mouth twice daily DIAZEPAM [id number] Hans Logan MD Start: 08-24-2012 take 1 tablet by carmen twice daily DIAZEPAM 10 MG TABS One tablet by mouth twice daily DIAZEPAM [id number] Hans Logan MD donepezil hydrochloride 5 mg disintegrating oral tablet (4 sources) Start: 01-10-2025 End: 05-01-2025 take 1 tablet by mouth at bedtime Donepezil 5 mg tablet,disintegrating Discontinued 5 mg PO AT BEDTIME January 10, 2025 1:00am May 01, 2025 1:36pm Start: 01-03-2025 take 1 tablet by carmen once daily at bedtime donepezil (ARICEPT) 5 mg tablet Take 5 mg by mouth daily at bedtime. 01/03/2025 Active eszopiclone 3 mg oral tablet (20 sources) Start: 05-30-2019 End: 01-02-2020 take 2 mg by mouth at bedtime Eszopiclone Discontinued 2 MG PO AT BEDTIME May 30, 2019 2:33pm January 02, 2020 10:24am Start: 04-14-2011 End: 01-02-2020 take 1 tablet by mouth at bedtime Eszopiclone 3 mg tablet Discontinued 2 mg PO AT BEDTIME May 30, 2019 3:33pm January 02, 2020 11:24am hydrOXYzine pamoate 50 mg oral capsule (20 sources) Antihistamine Start: 11-25-2014 End: 05-30-2019 take 1 capsule by mouth at bedtime Hydroxyzine Pamoate 50 MG capsule Discontinued 50 mg PO AT BEDTIME November 25, 2014 1:00am May 30, 2019 3:32pm Start: 03-07-2013 End: 09-05-2013 take 1 tablet by mouth twice daily as needed VISTARIL 50 MG CAPS One tablet by mouth twice daily as needed HYDROXYZINE PAMOATE [id number] Soco Zapata PA-C lisinopril 5 mg oral tablet (20 sources) Angiotensin Converting Enzyme Inhibitor Start: 07-13-2018 End: 12-11-2024 take 1 tablet by mouth once daily Lisinopril 5 mg tablet Discontinued 5 mg PO daily February 21, 2024 7:39pm December 11, 2024 2:21pm Start: 04-14-2011 End: 08-24-2012 LISINOPRIL 5 MG TABS HOLD 10/03/17 LISINOPRIL [id number] Jazmin Hector 24 hr metoprolol succinate 25 mg extended release oral tablet (20 sources) beta-Adrenergic Juani Start: 08-27-2011 End: 12-21-2024 take 1 tablet by mouth once daily Metoprolol Succinate 25 mg tablet extended release 24 hr Discontinued 25 mg PO DAILY March 06, 2024 10:50am December 21, 2024 9:04am Start: 08-27-2011 End: 11-27-2014 take 1 tablet by mouth twice daily Metoprolol Succinate 25 MG tablet Discontinued 25 mg PO TWICE A DAY November 25, 2014 1:00am November 27, 2014 10:43am Start: 04-14-2011 take 1 tablet by carmen th twice daily TOPROL XL 100 MG [id number] One tablet by mouth twice daily METOPROLOL SUCCINATE [id number] Hans Logan MD Start: 04-14-2011 take 1 tablet by carmen th twice daily TOPROL XL 100 MG [id number] One tablet by mouth twice daily METOPROLOL SUCCINATE [id number] Hans Logan MD Start: 04-14-2011 take 1 tablet by carmen th twice daily TOPROL XL 100 MG [id number] One tablet by mouth twice daily METOPROLOL SUCCINATE [id number] Hans Logan MD nitroglycerin 0.4 mg sublingual tablet (20 sources) Nitrate Vasodilator Start: 12-30-2017 End: 05-01-2025 Nitroglycerin 0.4 mg tablet, sublingual Discontinued 0.4 mg SL Q5M as needed for Cardiac/Chest Pain November 26, 2022 1:44pm July 01, 2023 3:23pm Start: 12-30-2017 End: 11-26-2022 Nitroglycerin Active 0.4 MG SL Q5M November 26, 2022 12:44pm Start: 08-24-2012 NITROSTAT 0.4 MG SUBL 1 tablet under tongue every 5 min up to 3 X NITROGLYCERIN [id number] Hans Logan MD Start: 04-14-2011 NITROGLYCERIN 0.4 MG/HR PT24 1 tablet under tongue every 5 min up to 3 X NITROGLYCERIN [id number] Jazminranjeet Hector potassium chloride 10 meq extended release oral capsule (20 sources) Start: 02-18-2021 End: 08-27-2021 take 1 capsule by mouth once daily Potassium Chloride 10 mEq capsule, extended release Discontinued 10 meq PO DAILY February 18, 2021 12:00am August 27, 2021 3:26pm Start: 01-20-2019 End: 07-12-2020 take 2 capsules by mouth once daily Potassium Chloride 10 mEq capsule, extended release Discontinued 20 meq PO daily 180 March 05, 2020 9:05am July 12, 2020 1:14pm Start: 01-20-2019 End: 07-12-2020 take 20 mEq by mouth once daily Potassium Chloride Dis continued 20 MEQ PO daily 180 March 05, 2020 8:05am July 12, 2020 12:14pm Start: 07-15-2018 End: 01-20-2019 take 1 capsule by mouth once daily Potassium Chloride 10 mEq capsule, extended release Discontinued 10 meq PO daily 90 December 26, 2018 10:59am January 20, 2019 2:17pm Start: 07-08-2018 End: 07-15-2018 take 2 tablets by mouth once daily Potassium Chloride 10 mEq tablet,ER particles/crystals Discontinued 20 meq PO DAILY 180 July 08, 2018 5:08pm July 15, 2018 2:07pm Start: 07-08-2018 End: 07-15-2018 take 20 mEq by mouth once daily Potassium Chloride Dis continued 20 MEQ PO DAILY 180 July 08, 2018 4:08pm July 15, 2018 1:07pm Start: 11-25-2014 End: 07-08-2018 take 2 tablets by mouth once daily Potassium Chloride 10 MEQ tablet Discontinued 20 meq PO DAILY November 25, 2014 1:00am July 08, 2018 5:08pm Start: 11-25-2014 End: 07-08-2018 take 20 mEq by mouth once daily Potassium Chloride Dis continued 20 MEQ PO DAILY November 25, 2014 12:00am July 08, 2018 4:08pm Start: 04-14-2011 take 2 tablets by [facility] once daily MICRO-K 10 MEQ CR-CAPS Two tablets by mouth daily POTASSIUM CHLORIDE [id number] Russ Pollack NP Start: 04-14-2011 take 2 tablets by [facility] once daily MICRO-K 10 MEQ CR-CAPS Two tablets by mouth daily POTASSIUM CHLORIDE [id number] Hans Logan MD rivaroxaban 20 mg oral tablet (14 sources) Factor Xa Inhibitor Start: 07-19-2018 End: 05-29-2019 take 1 tablet by mouth once daily Rivaroxaban (Xarelto) 20 mg tablet Discontinued 20 mg PO daily August 11, 2018 1:06pm May 29, 2019 5:52pm vitamin e 180 mg oral capsule (7 sources) Start: 02-18-2021 End: 07-01-2023 Vitamin E (Dl, Acetate) 400 unit capsule Discontinued 400 U PO DAILY February 18, 2021 12:00am July 01, 2023 3:18pm Problems Active Problems Problem Classification Problem Date Documented Date Episodic/Chronic Acute and unspecified renal failure (7 sources) Renal failure syndrome; Translations: [Unspecified kidney failure] 05-29-2019 Chronic Acute myocardial infarction (20 sources) ST elevation (STEMI) myocardial infarction involving other coronary artery of inferior wall; Translations: [Subsequent ST elevation (STEMI) myocardial infarction of inferior wall] Onset: 1 04-14-2011 Chronic Alcohol-related disorders (4 sources) Alcohol dependence; Translations: [Alcohol dependence, uncomplicated] Onset: 7 04-30-2011 Chronic Anxiety disorders (4 sources) Anxiety state; Translations: [Generalized anxiety disorder] 04-30-2011 Chronic Cardiac dysrhythmias (20 sources) Paroxysmal ventricular tachycardia; Translations: [Sinus bradycardia] Onset: 1 04-14-2011 Chronic Comment on above: RFA for V-Tach 2010 Conditions associated with dizziness or vertigo (7 sources) Lightheadedness; Translations: [Dizziness and giddiness] 05-29-2019 Episodic Conduction disorders (20 sources) Automatic implantable cardiac defibrillator in situ; Translations: [Presence of automatic (implantable) cardiac defibrillator] Onset: 7 Resolved: 1 04-30-2011 Chronic Congestive heart failure; nonhypertensive (4 sources) Chronic congestive heart failure; Translations: [Heart failure, unspecified] Onset: 1 04-30-2011 Chronic Coronary atherosclerosis and other heart disease (20 sources) 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; Translations: [Coronary arteriosclerosis] Onset: 3 12-11-2016 Chronic Diabetes mellitus without complication (7 sources) Hyperglycemia; Translations: [Hyperglycemia, unspecified] 05-29-2019 Episodic Disorders of lipid metabolism (20 sources) Hyperlipidemia; Translations: [Mixed hyperlipidemia] Onset: 1 04-14-2011 Chronic Essential hypertension (4 sources) Hypertensive disorder; Translations: [Essential (primary) hypertension] Onset: 1 04-30-2011 Chronic Fluid and electrolyte disorders (7 sources) Dehydration; Translations: [Dehydration] 05-29-2019 Episodic Malaise and fatigue (1 source) Other fatigue; Translations: [Other fatigue] Onset: Episodic Other hereditary and degenerative nervous system conditions (1 source) Mild cognitive impairment, so stated; Translations: [Mild cognitive impairment, so stated] 02-06-2025 Chronic Residual codes; unclassified (3 sources) Other amnesia; Translations: [Other amnesia] Onset: Episodic Residual codes; unclassified (2 sources) Disorientated; Translations: [Disorientation, unspecified] 11-25-2024 Episodic Residual codes; unclassified (2 sources) Memory impairment; Translations: [Other amnesia] 05-01-2025 Episodic Comment on above: Patient has had prog ressive memory loss and is now beginning to have impairment of cognitive functions. Unclassified (17 sources) Electrocardiogram abnormal; Translations: [Abnormal electrocardiogram [ECG] [EKG]] Onset: 1 04-14-2011 Episodic Unclassified (9 sources) Implantation of automatic cardiac defibrillator ; Translations: [Presence of automatic (implantable) cardiac defibrillator] Onset: 1 04-14-2011 Unclassified (2 sources) Long-term drug therapy; Translations: [Other senior living (current) drug therapy] Onset: 1 04-14-2011 Unclassified (4 sources) SUMMARY Onset: 1 04-30-2011 Unclassified (1 source) Amnestic MCI (mild cognitive impairment with memory loss) 02-06-2025 Viral infection (6 sources) Herpes zoster; Translations: [Zoster without complications] 04-30-2011 Episodic Past or Other Problems Problem Classification Problem Date Documented Da te Episodic/Chronic Cardiac dysrhythmias (10 sources) Palpitations; Translations: [Palpitations] Onset: 04-14-2011 04-14-2011 Episodic Coronary atherosclerosis and other heart disease (20 sources) Coronary angioplasty status; Translations: [Past history of procedure] Onset: 11-29-1992 04-14-2011 Episodic Comment on above: PTCA-RCA 1992 Other aftercare (8 sources) Other terminal superintendent (current) drug therapy; Translations: [Other terminal superintendent (current) drug therapy] Onset: 04-14-2011 04-14-2011 Episodic Other upper respiratory disease (3 sources) Allergic rhinitis; Translations: [Allergic rhinitis, unspecified] Resolved: 05-02-2007 06-08-2024 Chronic Residual codes; unclassified (4 sources) Insomnia; Translations: [Insomnia, unspecified] Onset: 10-03-2007 04-30-2011 Episodic Residual codes; unclassified (4 sources) H/O cardiac surgery; Translations: [Other specified postprocedural states] Onset: 04-24-2011 04-30-2011 Episodic Residual codes; unclassified (1 source) Disorientation, unspecified; Translations: [Disorientation, unspecified] Onset: 12-19-2024 Episodic Unclassified (10 sources) Body mass index (BMI) 26.0-26.9, adult; Translations: [Body mass index (BMI) 26.0-26.9, adult] Onset: 10-15-2014 10-15-2014 Episodic Unclassified (10 sources) Family history of stroke; Translations: [Family history of stroke] 10-15-2014 Episodic Results Test Name Value Interpretation Reference Range Facility Cardiology Visit Reporton Cardiology Visit Report [facility] [address] [place] [address] OFFICE VISIT Date of Service: 05/08/25 MR#: [id number] Acct: [id number] Name: NICOL ONEILL Rep #: [id number] : 1950 Provider: VANESSA Graves Age/Sex: 74/M Location: [facility] Status: Signed HPI HPI History of Present Illness Details: Nicol Patino is a 74-year-old male who presents to office today for follow-up for monitoring his cardiovascular health. Patient has a history of coronary artery disease status post stenting to the mid distal LAD in 2008 at [facility], ischemic cardiomyopathy status post ICD with lead revision with placement of an RA and LV lead through the left internal jugular and dual-chamber defibrillator upgraded to a biventricular ICD. He has a history of a thrombus in his left IJ with complete resolution after treating with anticoagulation. He has a history of fascicular VT status post radiofrequency ablation 04/24/2011 at [facility]. In November 2021, patient underwent battery change for his ICD. His most recent echocardiogram in December 2022 demonstrated ejection fraction of 45%. Upon presentation to office today, patient reports doing well. Patient's main concern is he feels his short-term memory is worsening as he gets older. He does report noticing gradual worsening in his fatigue and does not feel he has the energy like he used to. He reports becoming tired quicker. He used to walk 1-2 miles daily and last summer, he reports not having the energy to do this. He is hopeful to return to being able to do routine exercise. He does enjoy doing yard work and he was able to shovel snow over the winter without significant concerns. Prior to his PA, his main symptom was feeling worn out. He reports his current fatigue is nowhere near as severe as he experienced at the time of his PA. Further ROS below. Intake Vital Signs 08/11/24 14:32 11/16/24 21:51 05/08/25 11:11 Height 5 ft 4 in 5 ft 5 in 5 ft 5 in Weight: 167 lb BMI 27.8 BP 109/71 Blood Pressure Location Lt brachial Position Sitting Respiration 18 Pulse 73 Pulse Source Monitor Pulse Oximetry (%) 95 Intake Visit Reasons: 9 M FU/MOVED FROM [facility] Thermal Cutter Hand Required: No Is patient in pain?: No Allergies No Known Allergies Allergy (Verified 05/08/25 13:56) Medications ???Medication ???Instructions ???Recorded ???Confirmed ???Type aspirin 81 mg tablet,delayed 81 mg PO DAILY@0800 #30 tabs 11/2705/08/25 Rx release cholecalciferol (vitamin D3) 50 2,000 unit PO QDAY 01/04/18 History mcg (2,000 unit) capsule tamsulosin 0.4 mg capsule 0.8 mg PO QHS 06/23/22 05/08/25 Hi story atorvastatin 40 mg tablet 40 mg PO QHS #90 tabs 10/09/2409/22 Rx lisinopril 5 mg tablet 5 mg PO QDAY #90 tabs 12/11/2409/22 Rx metoprolol succinate 25 mg 25 mg PO DAILY #90 TABLETS 5 05/08/25 Rx tablet,extended release 24 hr mirtazapine 15 mg tablet 15 mg PO QHS 05/01/25 05/08/25 His tory Ejection fraction %: 45 Have you fallen in the past year?: Yes [facility] Medical History (Updated 05/08/25 @ 14:57 by VANESSA Graves) 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-sustained ventricular tachycardia Obesity Hyperlipidemia Acute thrombosis of left internal jugular vein (07/19/18) 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 of inferior wall myocardial infarction (1992) Ischemic cardiomyopathy Paroxysmal ventricular fibrillation Abnormal electrocardiogram Bradycardia Anxiety Ventricular arrhythmia Surgical History History of radiofrequency ablation procedure for cardiac arrhythmia (04/24/11) History of coronary angioplasty (1992) Presence of biventricular implantable cardioverter-defibril lator (ICD) (07/11/18) History of coronary artery stent placement (09/09/09) AICD (automatic cardioverter/defibril lator) present (05/1993) Family History Mother , 48 of lung cancer CAD (coronary artery disease) Cancer Father , age 56 CAD (coronary artery disease) Myocardial infarction Sudden cardiac Social History household members: none current occupational status: retired pets and animals: No Smoking Status: Former smoker alcohol intake: never caffeine: No do you feel safe at home: Yes ROS Const Const: Positive for fatigue; Negative for weakness, headache(s) or frequent falls Eyes Eyes: Negative for blurry vision ENT ENT: Negative for headache(s), dizziness or Nosebleed/epistaxis Cardio Chest Pain: No Palpitations: No Edema: None Muscle aches with wal (more content not included)... Normal [facility] MR/BMS.BPon 05-02-2025 MR/BMS.BP [facility] [address], [address] [place] [address] OFFICE VISIT Date of Service: 05/02/25 MR#: [id number] Acct: [id number] Name: NICOL ONEILL Rep #: [id number] : 1950 Provider: VERONICA segal Age/Sex: 74/M Location[place] [facility] [place] Status: Signed Intake Vital Signs 11/16/24 21:51 05/01/25 13:28 05/02/25 12:47 05/02/25 13:00 Height 5 ft 5 in 5 ft 5 in 5 ft 5 in Weight: 170 lb 169 lb 4 oz BMI 28.3 28.1 BP 95/56 L 102/72 Blood Pressure Location Lt brachial Lt brachial Position Sitting Sitting Respiration 16 16 Pulse 78 77 Pulse Source Monitor Monitor Temp 98.6 F Pulse Oximetry (%) 95 Oxygen Delivery Method room air BP Intake Visit Reasons: Anxiety Allergies No Known Allergies Allergy (Verified 05/02/25 12:49) Medications ???Medication ???Instructions ???Recorded ???Confirmed ???Type aspirin 81 mg tablet,delayed 81 mg PO DAILY@0800 #30 tabs 11/2705/02/25 Rx release cholecalciferol (vitamin D3) 50 2,000 unit PO QDAY 01/04/18 History mcg (2,000 unit) capsule tamsulosin 0.4 mg capsule 0.8 mg PO QHS 06/23/22 05/02/25 Hi story atorvastatin 40 mg tablet 40 mg PO QHS #90 tabs 10/09/2403/23 Rx lisinopril 5 mg tablet 5 mg PO QDAY #90 tabs 12/11/2403/23 Rx metoprolol succinate 25 mg 25 mg PO DAILY #90 TABLETS 5 05/02/25 Rx tablet,extended release 24 hr mirtazapine 15 mg tablet 15 mg PO QHS 05/01/25 05/02/25 His tory Have you fallen in the past year?: No [facility] Medical History (Updated 05/03/25 @ 06:55 by VERONICA Zelaya) 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-sustained ventricular tachycardia Obesity Hyperlipidemia Acute thrombosis of left internal jugular vein (07/19/18) 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 of inferior wall myocardial infarction (1992) Ischemic cardiomyopathy Paroxysmal ventricular fibrillation Abnormal electrocardiogram Bradycardia Anxiety Ventricular arrhythmia Surgical History History of radiofrequency ablation procedure for cardiac arrhythmia (04/24/11) History of coronary angioplasty (1992) Presence of biventricular implantable cardioverter-defibril lator (ICD) (07/11/18) History of coronary artery stent placement (09/09/09) AICD (automatic cardioverter/defibril lator) present (05/1993) Family History Mother , 48 of lung cancer CAD (coronary artery disease) Cancer Father , age 56 CAD (coronary artery disease) Myocardial infarction Sudden cardiac Social History household members: none current occupational status: retired pets and animals: No Smoking Status: Former smoker alcohol intake: never caffeine: No do you feel safe at home: Yes HPI History of Present Illness History provided by: patient and other (Neighbor- Diana) Chief complaint: Memory concerns/Anxiety HPI: Nicol Oneill is a 74 year old male patient presenting today for an intake evaluation. Patient presents today mostly with concerns of memory, being forgetful, and becoming confused easily. Has been declining since October. Would have instances of showing up to appointments when he did not have an appointment. Has also in the recent past he has gotten up and gone to work but has been retired for 6 years. Sleep: Sleep has been good since starting mirtazapine. 6-7 hours per night with medication. Admits to occasional napping. Interest: Denies feelings of depression. Admits to in the past would like to play tennis but cannot do this anymore due to physial limitations. Does find jad in working outside and keeping his hands busy. Energy: Does feel well rested in the morning. Admits to sometimes a lack of energy but does relate this to physical health. Denies any lack of motivation. Guilt: Denies hopelessness or worthlessness. Admits to feelings of guilt when triggered by something but is able to move on easily. Concentration: Denies any large concern with focus, concentration, or inattention. Denies feelings easily distracted. Appetite: Appetite is good. Does feel he can forget to eat when he is busy. Is eating 2 meals daily but the schedule of meals is inconsistent. Has lost about 10 pounds in the last 18 months, intentionally. Psychomotor: WNL Suicide: Denies SI/HI. Memory: Reports he has been having some memory concerns. Admits to a large concern of short and senior living memory. Does feel forgetful a lot fo the time. Does become confused. Does struggle with finding the name of objects at times and names of people. Anxiety: Does not feel anxious at baseline. Admits to infrequent periods of anxi (more content not included)... Normal [facility] Neurology Visit Reporton Neurology Visit Report [facility] [address], [address] [place] [id number] OFFICE VISIT Date of Service: 05/01/25 MR#: [id number] Acct: [id number] Name: NICOL ONEILL Rep #: [id number] : 1950 Provider: Dr. Siddhartha mcgraw MD Age/Sex: 74/M Location: [facility] [place] Status: Signed HPI HPI Chief Complaint: Establish Care Details: The patient is a 74-year-old left handed male who presents to [facility]. He was referred by Dr. Isabel Brush with [facility] for dementia. This patient presents for evaluation with a [facility]. Patient does not have any next of kin. Patient is being evaluated for dementia. Patient is due to see psychiatrist tomorrow for competency assessment. Patient has had basic blood work such as CBC with differential, CMP, magnesium, LFTs, lipid profile, B12, TSH and other values on the chart. No obvious correctable issues with regard to the diagnosis of dementia are noted. Patient also has a report of an MRI of the brain performed on 11/02/2024 which reported temporal lobes atrophy suggestive of possible Alzheimer type changes. 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 Patient still drives however and can get to locations within town into [place] but concerns about his ability to remember where he is going and how to return or beginning to arise. Concern for possible need for financial POA is currently being contemplated. Patient does have cardiac disease and does have a defibrillator in place. He has had a heart attack but he has had no prior strokes. He does have peripheral vascular disease. He does have hypertension which is currently being treated. He is not a diabetic. He has mild hypertension which appears to be easily controlled. No history of head traumas or injuries noted. He has intact vision and hearing. ROS: General: No recent respiratory illnesses. HEENT: No headaches or injuries. Eyes intact normal vision. Normal hearing without tinnitus. No epistaxis. Respiratory: No cough no hemoptysis Cardiac: Pacemaker in place had a prior stent placed no chest pain. Abdomen: Does not vomit blood or passed blood in stool. No GI distress Extremities: No evidence of recent traumas. Normal function. : No hematuria Skin: No rashes. Neurologic no seizures no strokes. Exam Const Other: BP is 95/56 pulse 78 respiration 16 temperature 98.6 O2 sat 95% BMI is 28.3 General appearance that well-developed well-nourished male no acute distress. HEENT: Normocephalic. Conjunctiva clear. Respiratory: Clear to auscultation. Cardiac: Regular rhythm no murmurs Abdomen: Not distended Extremities: No clubbing cyanosis or edema. No obvious trauma. Skin: Intact on observed areas. Neurologic examination: Mental status: Patient scored 22 out of 30 on Mini-Mental status exam. Patient does have a recent memory deficit. He did not know the name of the building although he knew he was in [facility]. Language showed normal work from home expression repetition. See MMSE for further details. CN II-XII: Pupils equal round about 4 mm in size. No visual field defect detected. Fundi not examined. Extraocular muscles are intact. No nystagmus. Motor and sensory function face is normal. Hearing swallowing phonation tongue normal. Motor exam demonstrated normal bulk tone and strength of all 4 extremities. Cerebellar testing showed normal finger-nose maneuvers. No cogwheeling rigidity tremor bradykinesia or ataxia. Reflexes: 1+ at biceps 1+ at knees. Toes down. : Sensory exams intact to tactile and vibratory sense. Next Station and gait normal. Assessment and Plan Assessment and Plan (1) Memory change: Status: Chronic Comment: Patient has had progressive memory loss and is now beginning to have impairment of cognitive functions. Plan: 1. Obtain Vivien Godfrey 218/A2 blood screening for Alzheimer's type dementia. 2. Patient to return to neurology clinic in 3 months following completion of lab results. Orders: Orders [facility] Misc. Today R41.3 - Other amnesia Intake Vital Signs 11/16/24 21:51 05/01/25 13:28 Height 5 ft 5 in 5 ft 5 in Weight: 170 lb BMI 28.3 BP 95/56 L Blood Pressure Location Lt brachial Position Sitting Respiration 16 Pulse 78 Pulse Source Monitor Temp 98.6 F Temp Source Temporal Pulse Oximetry (%) 95 Oxygen Delivery Method room air Intake Visit Reasons: DEMENTIA Chief Complaint: Establish Care Thermal Cutter Hand Required: No Accompanied by: Neighbor Allergies No Known Allergies Allergy (Verified 05/01/25 13:34) Medications ???Medication ???Instructions ???Recorded ???Confirmed ???Type aspirin 81 mg tablet,delayed 81 mg PO DAILY@0800 #30 tabs 11/2705/01/25 (more content not included)... [facility] Telephone (MARTÍN) NICOL ONEILL ([id number]) 1950 M Date Time Provider Department 02/09/25 WEEKS, NISHA K NEMSMN During your visit today, we recorded the following information about you: Mingo Euceda 02/09/2025 10:52 AM Signed tried calling patient to inform patient that we need to reschedule appointment with dr weeks seeing as the provider will not be avaliable vm was full so i sent my chart and appointment reminder Allergies As of Date: 02/09/2025 Noted Allergy Reaction CIPROFLOXACIN 08/27/2011 5 - Intolerance Comments: lethargic, generalized body aches, nausea and diarrhea FLAGYL (METRONIDAZOLE HCL) 08/27/2011 14 - Other: See Comments Comments: lethargic, generalized body aches, nausea and diarrhea mycins? [Other] 11/08/2001 Date Reviewed: 05/12/2013 Reviewed by: Raman Jorge (Rn), RN - Fully Assessed Reason for Visit: Appointment [[id number]] Cmt: tried calling patient to inform patient that we need to reschedule appointment with dr weeks seeing as the provider will not be avaliable vm was full so i sent my chart and appointment reminder Prescriptions as of 02/09/2025 - cholecalciferol (VITAMIN D3) 50 mcg (2,000 unit) tablet Take 2,000 Units by mouth. - lisinopril (ZESTRIL) 5 mg tablet Take 1 tablet by mouth once daily. - nitroglycerin sublingual (NITROQUICK) 0.4 mg SL tablet Dissolve 0.4 mg under the tongue. - potassium chloride ER (KLOR-CON M10) 10 mEq tablet Take 20 mEq by mouth. - tamsulosin (FLOMAX) 0.4 mg - mirtazapine (REMERON) 15 mg tablet Take 15 mg by mouth daily at bedtime. - donepezil (ARICEPT) 5 mg tablet Take 5 mg by mouth daily at bedtime. - eszopiclone (LUNESTA) 3 mg ORAL Tab Take 1 tablet by mouth daily at bedtime. - metoprolol succinate XL, long acting, 25 mg ORAL 24 hr tablet Take by mouth. take one tab in AM and one tab in PM - aspirin 325 mg ORAL tablet Take 1 tablet by mouth once daily. - atorvastatin calcium(LIPITOR 20 MG TAB) Take one(1) tablet daily. - clopidogrel bisulfate(PLAVIX 75 MG TAB) Take one(1) tablet daily. Problem List As Of Date 02/09/2025 Noted Resolved Mixed hyperlipidemia [E78.2] Coronary atherosclerosis [414.0] Acute myocardial infarction, unspecified site [* Paroxysmal ventricular tachycardia (HCC) [I47.2* Automatic implantable cardiac defibrillator in *02/11/2007 04/23/2011 Alcoh dep NEC/NOS, unspec [F10.20] 02/14/2007 ALLERGIC RHINITIS NOS [J30.9] 05/02/2007 Anxiety state, unspecified [F41.1] Herpes zoster without mention of complication [* Insomnia, unspecified [G47.00] 10/03/2007 SUMMARY [V999.95] 04/22/2011 Chronic CHF (HCC) [I50.9] 04/23/2011 Hypertension [I10] 04/23/2011 Automatic implantable cardiac defibrillator in *04/24/2011 S/P ablation of ventricular arrhythmia [Z98.890*04/24/2011 Encounter Status:Closed by MINGO EUCEDA on 02/09/25 [facility] CNOVon 02-06-2025 CNOV Office Visit (YARON ) NICOL ONEILL ([id number]) 1950 M Date Time Provider Department 02/06/25 1:00 PM NISHA WEEKS During your visit today, we recorded the following information about you: Pulse Blood pressure Weight 68/minute 111/73 77.5 kg Justine Soto OCCA 02/06/2025 11:36 AM Signed Nicol Oneill is a 74 year old year old left handed man Accompanied by: patient. 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 Medications Vital Signs: BP 111/73 Pulse 68 Wt 77.5 kg (170 lb 14.4 oz) Nisha Weeks MD 02/06/2025 12:59 PM Addendum Today we discussed that the memory problems you are having may be caused by Alzheimer's Disease. We discussed the diagnosis of Mild Cognitive Impairment. We discussed getting the following testing done: - labwork (get this done with your primary care doctor) - Social work consult - A member of our staff will provide instructions on how to bring us CDs of your Brain MRI - Driving assessment is recommended. - Keep taking mirtazapine 15 mg nightly, which was prescribed by your primary care provider. I recommend you follow up with a psychiatrist locally. Main side effects include weight gain and tiredness. - Donepezil was prescribed by your primary care provider for memory. This is generally appropriate, but we can consider restarting it after your anxiety improves. --- What is mild cognitive impairment? Mild cognitive impairment (MCI) is a brain disorder that causes trouble with memory or thinking. The word cognitive has to do with memory and thinking. The word impairment means having trouble doing something. It is normal for adults to have slight memory problems as they get older. But the problems in MCI are more significant than those of normal aging. For example, you might forget things more often than before, or you might forget more important things. Some people with MCI later develop a condition called dementia. Dementia is the general term for a group of brain disorders that cause problems with memory and thinking. Dementia is a more serious problem than MCI. People with MCI usually don't have many problems doing their daily tasks and activities. But people with dementia might not be able to do their daily tasks or activities correctly or at all. What are the symptoms of MCI? Memory problems are the most common symptom of MCI. Some people have other types of thinking problems. They might have trouble concentrating, reasoning, or remembering the correct word to use. It can also be more difficult to make decisions. Some people with MCI might get lost. Some people with MCI might also feel sad, worried, or angry; act in a threatening way; or believe things that aren't true. Other people with MCI might seem less interested in activities or other things that used to be important to them. Some people with MCI are aware of their memory changes and problems. In other cases, family members, friends, or co-workers might notice these problems first. How can my doctor or nurse tell if I have MCI? -- To tell if you have MCI, your doctor or nurse will: Talk with you and your family - They will ask about your symptoms, behavior, mood, and daily activities, and how these have changed over time. They will also ask about your medical conditions and medicines. That's because some medical conditions and medicines can also cause memory problems. In older adults, depression can cause symptoms similar to MCI. Do an exam Ask questions to check your memory and thinking Your doctor might do tests to check that another medical condition isn't causing your symptoms. These tests can include: Blood tests A CT or MRI scan of your brain - These are imaging tests that can create pictures of your brain. More detailed tests to check your memory, language, and thinking - This is called neuropsychological testing because it is done to learn more about how your brain and mind are working. It involves testing how well you are able to: Speak Write and understand language Learn and remember information Use reason and logic Do tasks related to math and numbers NOTE: This type of detailed testing can take 1 to several hours. It is usually done by a doctor called a neuropsychologist. How is MCI treated? Sadly, there really aren't helpful treatments for MCI. As of now, no medicines can prevent MCI from turning into dementia. If you have a lot of memory problems, your doctor might prescribe a medicine used to treat a type of dementia called Alzheime (more content not included)... Normal [facility] M100.678on 11-18-2024 SARS-CoV-2 (COVID-19) Ab IA Ql FLUABV+SARS-CoV-2+RSV Pnl Resp MARIA EUGENIA+probe FLUABV+SARS-CoV-2+RSV Pnl Resp MARIA EUGENIA+probe Copy of report sent to Infection Control Printer [id number] 11/16/24 0661 FR[address]. SARS-CoV-2 (COVID 19) A Positive A INFLUENZA A Negative INFLUENZA B Negative RSV PCR Negative SARS-CoV-2 (COVID 19 PCR) Normal [facility] Comment on above: Performed By: #### M 100.678 #### [facility] Laboratory [address] [place], [address] 12 Lead EKGon 11-16-[address] [facility] [address] [place] [address] 12 Lead EKG 11/16/24 2224 MR#: [id number] Acct: [id number] Name: NICOL ONEILL Rep #: [id number] : 1950 73 From: Hans Logan MD Attending Dr: Status: REG ER Ordering Dr: Art Tom MD Date: 11/16/24 Location: ED Sex: M C Admitted: Test Reason : DYSRHYTHMIA Blood Pressure : */* mmHG Vent. Rate : 88 BPM Atrial Rate : 88 BPM P-R Int : 146 ms QRS Dur : 152 ms QT Int : 388 ms P-R-T Axes : 27 178 10 degrees QTcB Int : 469 ms Atrial-sensed ventricular-paced rhythm Biventricular pacemaker detected Abnormal ECG Confirmed by DOREEN JOHANSEN, HANS ([id number]), managing editor GERMAIN MAHONEY ([id number]) on 11/17/2024 8:14:47 AM Referred By: Confirmed By: HANS LOGAN MD 11/17/24 0814 Date Hans Logan MD CC: Dr. Art Tom MD; Dr. Isabel Brush MD Signed Normal [facility] Absolute neutrophil countOrd ered By: Art Tom on 11-16-2024 Neutrophils (Bld) [#/Vol] 5.7 10*3/uL 2.0-7.7 [facility] Albumin to globulin ratioOrd ered By: Art Tom on 11-16-2024 Albumin/Globulin [Mass ratio] 1.0 {ratio} 0.9-2.4 [facility] Bacteria LM.HPF (Urine sed) [#/Area]Ordered By: Art Tom on 11-16-2024 Urine Bacteria RARE /hpf None Seen [facility] Basophil percentageOrdered B y: Art Tom on 11-16-2024 Basophils/100 WBC (Bld) 0.5 % 0-1 [facility] Bilirubin Test strip Ql (U)O rdered By: Art Tom on 11-16-2024 Bilirubin Ql (U) Negative Negative [facility] Bilirubin, totalOrdered By: Art Grimmone on 11-16-2024 Bilirubin [Mass/Vol] 0.70 mg/dL 0.20-1.00 [facility] Comment on above: For patients on eltr ombopag therapy, use of Dimension Tsaile TBIL is not recommended. Blood urea nitrogen (BUN)/cr eatinine ratioOrdered By: Artximena Tom on 11-16-2024 Urea nitrogen/Creatinine [Mass ratio] 10.3 mg/mg 10-20 [facility] Brain/Head without Contrasto n 11-16-2024 Brain/Head without Contrast [facility] Services [address] [place], [place] [id number] Brain/Head without Contrast MR#: [id number] Acct: [id number] Name: NICOL ONEILL Rep #: [id number] : 1950 M 73 From: Rafita trejo DO PCP: Dr. Isabel Brush MD Status: REG ER Study: Brain/Head without Contrast Date of Exam: 10/29 08/22 Exam# [id number] Ordering Dr: Art Tom MD [id number] EXAM: CT HEAD WITHOUT INTRAVENOUS CONTRAST CLINICAL INDICATION: confusion TECHNIQUE: Multiple axial images were obtained of the head without intravenous contrast. This CT exam was performed using one or more of the following dose reduction techniques: automated exposure control, adjustment of the mA and/or kV according to patient size, and/or use of iterative reconstruction technique. COMPARISON: No relevant prior studies available. FINDINGS: BRAIN AND EXTRA-AXIAL SPACES: Global parenchymal volume loss although with disproportionate enlargement of the supratentorial ventricles compared to the sulci suggesting superimposed normal pressure hydrocephalus. There is non-specific periventricular hypoattenuation which is most commonly related to chronic microvascular ischemic disease in a patient of this age. There is no mass, mass-effect, or shift of the midline structures. No evidence of acute infarct or acute intracranial hemorrhage. There is no evidence of pathologic extra-axial fluid. Patent basal cisterns. BONES/JOINTS: No significant abnormality. No discrete lytic or blastic abnormalities. VASCULATURE: Arteriosclerosis. SINUSES: No significant findings. MASTOID AIR CELLS: No significant effusion. ORBITS: No acute findings. CT/Brain/Head without Contrast IMPRESSION: 1. Global parenchymal volume loss although with disproportionate enlargement of the supratentorial ventricles compared to the sulci suggesting superimposed normal pressure hydrocephalus. 2. Chronic microvascular ischemic changes. Electronically Signed: Rafita Chin DO at 23:18 EST , CC: Dr. Art Tom MD; Dr. Isabel Brush MD Celery Wrapper: Signed Normal [facility] CBC W/Diff, Automatedon 12- Absolute Lymph 0.77 X10 3/uL Low 0.83-4.51 [facility] Comment on above: Performed By: #### M 100.678 #### [facility] [address] [facility] [place], [address] Absolute Neut 5.7 X10 3/uL Normal 2.0-7.7 [facility] Comment on above: Performed By: #### M 100.678 #### [facility] [address] [place], [address] Basophils/100 WBC (Bld) 0.5 % Normal 0-1 [facility] Comment on above: Performed By: #### M 100.678 #### [facility] [address] [place], [address] Eosinophils/100 WBC (Bld) 0.8 % Normal 0-5 [facility] [facility] Comment on above: Performed By: #### M 100.678 #### [facility] [address] [place], [address] Erythrocyte distribution width (RBC) [Ratio] 13.2 % Normal 11.6-14.6 [facility] Comment on above: Performed By: #### M 100.678 #### [facility] [address] [place], [address] Hematocrit (Bld) [Volume fraction] 46.5 % Normal 40-54 [facility] Comment on above: Performed By: #### M 100.678 #### [facility] [address] [place], [address] Hemoglobin (Bld) [Mass/Vol] 16.1 g/dL Normal 13.0-16.5 [facility] Comment on above: Performed By: #### M 100.678 #### [facility] [address] [place], [address] IG% 0.400 Normal 0.0-0.9 [facility] Comment on above: Result Comment: IG% - Immature Granulocytes (promyelocytes, myelocytes and metamyelocytes) > 1% indicates that a LEFT SHIFT is Present. Performed By: #### M 100.678 #### [facility] [address] [place], [address] Lymphocytes/100 WBC (Bld) 9.9 % Low 19-41 [facility] Comment on above: Performed By: #### M 100.678 #### [facility] [address] [place], [address] MCH (RBC) [Entitic mass] 30.8 pg Normal 27.0-32.0 [facility] Comment on above: Performed By: #### M 100.678 #### [facility] [address] [place], [address] MCHC (RBC) [Mass/Vol] 34.6 g/dL Normal 32-36 [facility] Comment on above: Performed By: #### M 100.678 #### [facility] [address] [place], [address] MCV (RBC) [Entitic vol] 89.1 fL Normal 80-94 [facility] Comment on above: Performed By: #### M 100.678 #### [facility] [address] [place], [address] Monocytes/100 WBC (Bld) 15.8 % High 0-10 [facility] Comment on above: Performed By: #### M 100.678 #### [facility] [address] [place], [address] Neutrophils/100 WBC (Bld) 72.6 % High 47-70 [facility] Comment on above: Performed By: #### M 100.678 #### [facility] [address] [place], [address] Nucleated RBC (Bld) [#/Vol] 0 10*3/uL Normal 0-5 [facility] Comment on above: Performed By: #### M 100.678 #### [facility] [address] [place], [address] Platelet mean volume (Bld) [Entitic vol] 9.5 fL Normal 6.2-12.0 [facility] Comment on above: Performed By: #### M 100.678 #### [facility] [address] [place], [address] Platelets (Bld) [#/Vol] 146 10*3/uL Low 150-450 [facility] Comment on above: Performed By: #### M 100.678 #### [facility] [address] [place], [address] RBC (Bld) [#/Vol] 5.22 10*6/uL Normal 4.6-6.2 [facility] Comment on above: Performed By: #### M 100.678 #### [facility] [address] [place], [address] RDW SD 43.3 fl Normal 35.1-43.9 [facility] Comment on above: Performed By: #### M 100.678 #### [facility] [address] [place], [address] WBC (Bld) [#/Vol] 7.8 10*3/uL Normal 4.4-11.0 [facility] Comment on above: Performed By: #### M 100.678 #### [facility] [address] [place], [address] Carbon dioxide measurementOr dered By: Art Tom on 11-16-2024 CO2 [Moles/Vol] 27.0 mmol/L 21.0-32.0 [facility] Chest PA and Lateralon 11-16 Chest PA and Lateral [facility] [address] [place], [place] [address] Chest PA and Lateral MR#: [id number] Acct: [id number] Name: NICOL ONEILL Rep #: [id number] : 1950 M 73 From: Rafita trejo DO PCP: Dr. Isabel Brush MD Status: [facility] ER Study: Chest PA and Lateral Date of Exam: 11/16/24 Exam# [id number] Ordering Dr: Art Tom MD [id number] EXAM: XR CHEST, 2 VIEWS CLINICAL INDICATION: cough sob TECHNIQUE: Frontal and lateral views of the chest. COMPARISON: 03/24/2022 FINDINGS: LUNGS AND PLEURAL SPACES: No significant abnormality. No consolidation or edema. No pneumothorax. No effusion. HEART: No significant abnormality. Cardiac silhouette not enlarged. MEDIASTINUM: Central airways and mediastinal contour are unremarkable. BONES/JOINTS: No significant abnormality. No acute fracture. SOFT TISSUES: No significant abnormality. TUBES, LINES AND DEVICES: Cardiac device on the left. Additional implanted electronic device in the left body wall. RAD/Chest PA and Lateral IMPRESSION: No acute findings in the chest. Electronically Signed: Rafita Chin DO at 23:19 EST , CC: Dr. Art Tom MD; Dr. Isabel Brush MD Celery Wrapper: Signed Normal [facility] Chloride measurementOrdered By: Art Tom on 11-16-2024 Chloride [Moles/Vol] 104 mmol/L 98-107 [facility] Comprehensive Metabolic Prof ilon 11-16-2024 Albumin [Mass/Vol] 3.8 g/dL Normal 3.2-5.0 [facility] Comment on above: Order Comment: 'TROP ' Serial specimen #1, #2 or #3: 1 Performed By: #### M 100.678 #### [facility] [address] [place], [address] Albumin/Globulin [Mass ratio] 1.0 {ratio} Normal 0.9-2.4 [facility] Comment on above: Order Comment: 'TROP ' Serial specimen #1, #2 or #3: 1 Performed By: #### M 100.678 #### [facility] [address] [place], [address] ALK P 72 U/L Normal 45-117 [facility] Comment on above: Order Comment: 'TROP ' Serial specimen #1, #2 or #3: 1 Performed By: #### M 100.678 #### [facility] [address] [place], [address] ALT [Catalytic activity/Vol] 32 U/L Normal 16-61 [facility] Comment on above: Order Comment: 'TROP ' Serial specimen #1, #2 or #3: 1 Performed By: #### M 100.678 #### [facility] [address] [place], [address] AST [Catalytic activity/Vol] 22 U/L Normal 15-37 [facility] Comment on above: Order Comment: 'TROP ' Serial specimen #1, #2 or #3: 1 Performed By: #### M 100.678 #### [facility] [address] [place], [address] Bilirubin [Mass/Vol] 0.70 mg/dL Normal 0.20-1.00 [facility] Comment on above: Order Comment: 'TROP ' Serial specimen #1, #2 or #3: 1 Result Comment: For patients on eltrombopag therapy, use of Dimension Tsaile TBIL is not recommended. Performed By: #### M 100.678 #### [facility] [address] [place], [address] BUN/CRE 10.3 RATIO Normal 10-20 [facility] Comment on above: Order Comment: 'TROP ' Serial specimen #1, #2 or #3: 1 Performed By: #### M 100.678 #### [facility] [address] [place], [address] CA,Total 9.4 mg/dL Normal 8.5-10.1 [facility] Comment on above: Order Comment: 'TROP ' Serial specimen #1, #2 or #3: 1 Performed By: #### M 100.678 #### [facility] [address] [place], [address] Chloride [Moles/Vol] 104 mmol/L Normal 98-107 [facility] Comment on above: Order Comment: 'TROP ' Serial specimen #1, #2 or #3: 1 Performed By: #### M 100.678 #### [facility] [address] [place], [address] CO2 [Moles/Vol] 27.0 mmol/L Normal 21.0-32.0 [facility] Comment on above: Order Comment: 'TROP ' Serial specimen #1, #2 or #3: 1 Performed By: #### M 100.678 #### [facility] [address] [place], [address] Creatinine [Mass/Vol] 1.26 mg/dL Normal 0.70-1.30 [facility] Comment on above: Order Comment: 'TROP ' Serial specimen #1, #2 or #3: 1 Result Comment: The validity of the calculated GFR GFRAA in patients over 70 years has not been determined. Clinical correlation is essential. Performed By: #### M 100.678 #### [facility] [address] [place], [address] ECRCL 52.13 ml/min Normal [facility] Comment on above: Order Comment: 'TROP ' Serial specimen #1, #2 or #3: 1 Performed By: #### M 100.678 #### [facility] [address] [place], [address] EST GFR - AA 72 mL/min Normal >60 [facility] Comment on above: Order Comment: 'TROP ' Serial specimen #1, #2 or #3: 1 Result Comment: Afri can Guamanian GFR Calc Performed By: #### M 100.678 #### [facility] [address] [place], [address] GAP 5 Normal 5-15 [facility] Comment on above: Order Comment: 'TROP ' Serial specimen #1, #2 or #3: 1 Performed By: #### M 100.678 #### [facility] [address] [place], [address] GFR/1.73 sq M.predicted among non-blacks MDRD (S/P/Bld) [Vol rate/Area] 60 mL/min/{1.73_m2} Normal >60 [facility] Comment on above: Order Comment: 'TROP ' Serial specimen #1, #2 or #3: 1 Result Comment: Non- GFR Calc Performed By: #### M 100.678 #### [facility] [address] [place], [address] Globulin (S) [Mass/Vol] 3.9 g/dL Normal 2.2-4.2 [facility] Comment on above: Order Comment: 'TROP ' Serial specimen #1, #2 or #3: 1 Performed By: #### M 100.678 #### [facility] [address] [place], [address] Glucose [Mass/Vol] 94 mg/dL Normal 74-106 [facility] Comment on above: Order Comment: 'TROP ' Serial specimen #1, #2 or #3: 1 Performed By: #### M 100.678 #### [facility] [address] [place], [address] Potassium [Moles/Vol] 3.8 mmol/L Normal 3.5-5.1 [facility] Comment on above: Order Comment: 'TROP ' Serial specimen #1, #2 or #3: 1 Performed By: #### M 100.678 #### [facility] [address] [place], [address] Sodium [Moles/Vol] 136 mmol/L Normal 136-145 [facility] Comment on above: Order Comment: 'TROP ' Serial specimen #1, #2 or #3: 1 Performed By: #### M 100.678 #### [facility] [address] [place], [address] T PROT 7.7 g/dL Normal 6.4-8.2 [facility] Comment on above: Order Comment: 'TROP ' Serial specimen #1, #2 or #3: 1 Performed By: #### M 100.678 #### [facility] [address] [place], [address] Urea nitrogen [Mass/Vol] 13 mg/dL Normal 7-18 [facility] Comment on above: Order Comment: 'TROP ' Serial specimen #1, #2 or #3: 1 Performed By: #### M 100.678 #### [facility] [address] [place], [address] Emergency Department Summary on 11-16-2024 Emergency Department Summary [facility] Medical Records Department [address] [place] [address] Emergency Department Summary 11/16/24 MR#: [id number] Acct: [id number] Name: NICOL ONEILL Rep #: [id number] : 1950 73 From: Art Tom MD PCP: Dr. Isabel Brush MD Status:REG ER Location: ED ADDENDUM by Dr. Francis Escobar DO on 11/17/24 at 1132 Patient's case was signed out to me to follow-up on social work recommendations. Social work did evaluate the patient and states that they feel that he is easily redirectable and is appropriate to go back home. They state that they will provide him with resources which they did here in the emergency department and note that he should follow-up with his primary care physician outpatient setting. They state that they will attempt to have someone go out and check on him at the beginning of next week. Previous provider did reach out to his primary care physician and they note they discontinued his buspirone and states that they will follow-up with him in the outpatient setting or telephone. Patient is agreeable to plan he would like to go home at this point in time all question concerns answered discharged home in stable condition. 11/17/24 1132 Cosigner Signature (if applicable): cc: Dr. Isabel Brush MD * Signed ADDENDUM by Dr. Art Tom MD on 11/17/24 at 0759 Before turning over to morning shift, I was able to speak with the patient's PCP Dr. Brush during business hours. He states that he recently started the patient on buspirone, he filled the prescription maybe 3 days ago, and he agrees that the patient is being worked up for dementia and he clinically thinks the patient has moderate dementia but maintains that he is pretty functional at home. He agrees with having social work make sure the patient is safe to go home and if so discontinuing his buspirone and he will follow-up with him via telephone or in the office. 11/17/24 0759 Cosigner Signature (if applicable): cc: Dr. Isabel Brush MD * Signed HPI History of Present Illness Chief Complaint: Confusion Informant: patient and EMS Narrative Narrative: 73-year-old male brought for altered mental status/confusion. Patient states he has been feeling disoriented today and he thinks it is because of the medication he was started on yesterday at his doctor's office. He does not know what it is. He thinks he may be because he was diagnosed with COVID 3 days ago. The only other new prescription that he has is tamsulosin which she has been on before but was off of it for a while and now is back on it. He has had no issues with that in the past. Apparently EMS said that they were called because of unusual behavior. The patient lives alone. He states he was not outside today, he does not know what that unusual behavior was. However, EMS said his neighbor called related to something he was doing outside, but he doesn't know what he was talking about. He does feel disoriented. When asked if he has been short of breath he says no. Then when asked if he has a cough he states yes, but only when I get out of breath. [facility] Medical History (Updated 11/17/24 @ 03:[address] 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 (1992) Ischemic cardiomyopathy Paroxysmal ventricular fibrillation Abnormal electrocardiogram Bradycardia Anxiety Ventricular arrhythmia Home Medications ???Medication ???Instructions ???Recorded ???Last Taken ???Type aspirin 81 mg tablet,delayed 81 mg PO DAILY@0800 #30 tabs 11/27/14 Unknown Rx release cholecalciferol (vitamin D3) 50 2,000 unit PO QDAY 01/04/18 Unknown History mcg (2,000 unit) capsule tamsulosin 0.4 mg capsule 0.8 mg PO QHS 07/26/22 Unknown History nitroglycerin 0.4 mg sublingual 0.4 mg sublingual Q5M PRN 07/01/23 Unknown Rx tablet Cardiac/Chest Pain #25 tabs lisinopril 5 mg tablet 5 mg PO QDAY #90 tabs 02/21/24 Unknown Rx metoprolol succinate 25 mg 25 mg PO DAILY #90 tabs 03/06/24 Unknown Rx tablet,extended release 24 hr atorvastatin 40 mg tablet 40 mg PO QHS #90 tabs 10/09/24 Unknown Rx buspirone 5 mg tablet 5 mg PO BID 11/16/24 Unknown History Allergy/AdvReac Type Severity Reaction Status Date / Time No Known Allergies Allergy Verified 11/16/24 22:00 Family History Mother , 48 of lung cancer CAD (coronary artery disease) Cancer Father , age 56 CAD (coronary artery disease) Myocardial infarction Sudden cardiac S (more content not included)... Normal [facility] Eosinophil percentageOrdered By: Art Tom on 11-16-2024 Eosinophils/100 WBC (Bld) 0.8 % 0-5 [facility] Epithelial cells.squamous LM Ql (Urine sed)Ordered By: Art Tom on 11-16-2024 Epithelial cells.squamous LM.HPF (Urine sed) [#/Area] 0 /[HPF] 0-5 [facility] Erythrocyte distribution wid th ratioOrdered By: Art Tom on 11-16-2024 Erythrocyte distribution width (RBC) [Ratio] 13.2 % 11.6-14.6 [facility] Erythrocyte distribution wid th standard deviationOrdered By: Art Tom on 11-16-2024 Erythrocyte distribution width (RBC) [Entitic vol] 43.3 fL 35.1-43.9 [facility] Estimated glomerular filtrat ion rate (GFR) AmericanOrdered By: Art Tom on 11-16-2024 Estimated GFR (MDRD) Amer 72 mL/min >60 [facility] Comment on above: GFR Calc Estimation of creatinine vickie aranceOrdered By: Art Tom on 11-16-2024 Estimated Creatinine Clearance Calc 52.13 ml/min [facility] Glomerular filtration rate ( GFR) estimationOrdered By: Art Tom on 11-16-2024 Estimated GFR (MDRD) Non-Af Amer 60 mL/min >60 [facility] Comment on above: Non- GFR Calc Glucose Ql (U)Ordered By: Rdaha teofilo Negro on 11-16-2024 Urine Glucose (UA) Normal mg/dl Normal [facility] Glucose measurementOrdered B y: Art Negro on 11-16-2024 Glucose [Mass/Vol] 94 mg/dL 74-106 [facility] Hematocrit Auto (Bld) [Volum e fraction]Ordered By: Art Tom on 11-16-2024 Hematocrit (Bld) [Volume fraction] 46.5 % 40-54 [facility] Hemoglobin measurementOrdere d By: Art Tom on 11-16-2024 Hemoglobin (Bld) [Mass/Vol] 16.1 g/dL 13.0-16.5 [facility] Immature granulocytes/100 WB C Auto (Bld)Ordered By: Art Tom on 11-16-2024 Immature granulocytes/100 WBC (Bld) 0.400 % 0.0-0.9 [facility] Comment on above: IG% - Immature Granu locytes (promyelocytes, myelocytes and metamyelocytes) > 1% indicates that a LEFT SHIFT is Present. Influenza virus A and B and SARS-CoV-2 (COVID-19) and Respiratory syncytial virus RNAOrdered By: Art Tom on 11-16-2024 SARS-CoV-2 (COVID-19) RNA MARIA EUGENIA+probe Ql (Unsp spec) SARS-CoV-2 (COVID 19 PCR) Abnormal [facility] Ketones Test strip Ql (U)Ord ered By: Art Tom on 11-16-2024 Ketones Ql (U) 5 mg/dl High Negative [facility] [id number] 11-16-2024 TROPONIN-I HS 20 pg/mL Normal 3.0-78.0 [facility] Comment on above: Order Comment: 'TROP ' Serial specimen #1, #2 or #3: 1 Result Comment: Aruna saleem Note: New Test Units and Gender Specific Reference Ranges. For more information see Policy Stat Procedure [place] High Sensitivity Troponin (TNIH) and attachments. Performed By: #### M 100.678 #### [facility] [address] [place], [address] Laboratory - Chemistry and C hemistry - challengeOrdered By: Art Tom on 11-16-2024 AST [Catalytic activity/Vol] 22 U/L 15-37 [facility] Lymphocytes Auto (Unsp spec) [#/Vol]Ordered By: Art Tom on 11-16-2024 Lymphocytes (Bld) [#/Vol] 0.77 10*3/uL Low 0.83-4.51 [facility] Lymphocytes/100 WBC Auto (Un sp spec)Ordered By: Art Tom on 11-16-2024 Lymphocytes/100 WBC (Bld) 9.9 % Low 19-41 [facility] MCV (mean corpuscular volume ) determinationOrdered By: Art Tom on 11-16-2024 MCV (RBC) [Entitic vol] 89.1 fL 80-94 [facility] Mean corpuscular hemoglobin (MCH) determinationOrdered By: Art Tom on 11-16-2024 MCH (RBC) [Entitic mass] 30.8 pg 27.0-32.0 [facility] Mean corpuscular hemoglobin concentration (MCHC) determinationOrdered By: Art Tom on 11-16-2024 MCHC (RBC) [Mass/Vol] 34.6 g/dL 32-36 [facility] Mean platelet volume determi nationOrdered By: Art Tom on 11-16-2024 Platelet mean volume (Bld) [Entitic vol] 9.5 fL 6.2-12.0 [facility] Microscopic analysis of urin e for red blood cells (RBC)Ordered By: Art Tom on 11-16-2024 Urine RBC 0 SEEN /hpf 0-5 [facility] Monocyte percentageOrdered B y: Art Tom on 11-16-2024 Monocytes/100 WBC (Bld) 15.8 % High 0-10 [facility] Mucus LM Ql (Urine sed)Order ed By: Art Tom on 11-16-2024 Mucus Ql (Urine sed) 0 SEEN /hpf [facility] Neutrophil percentageOrdered By: Art Tom on 11-16-2024 Neutrophils/100 WBC (Bld) 72.6 % High 47-70 [facility] Nitrite Test strip Ql (U)Ord ered By: Art Tom on 11-16-2024 Nitrite Ql (U) Negative Negative [facility] Nucleated red blood cell per centageOrdered By: Art Tom on 11-16-2024 Nucleated RBC/100 WBC (Bld) [Ratio] 0 % 0-5 [facility] Platelet countOrdered By: Radha Tom on 11-16-2024 Platelets (Bld) [#/Vol] 146 10*3/uL Low 150-450 [facility] Potassium measurementOrdered By: Art Tom on 11-16-2024 Potassium [Moles/Vol] 3.8 mmol/L 3.5-5.1 [facility] Protein Test strip Ql (U)Ord ered By: Art Tom on 11-16-2024 Protein Ql (U) 30 mg/dl High Negative [facility] RBC Auto (Bld) [#/Vol]Ordere d By: Art Tom on 11-16-2024 RBC (Bld) [#/Vol] 5.22 10*6/uL 4.6-6.2 [facility] Serum anion gap measurementO rdered By: Art Tom on 11-16-2024 Anion gap [Moles/Vol] 5 mmol/L 5-15 [facility] Serum globulin measurementOr dered By: Art Tom on 11-16-2024 Globulin (S) [Mass/Vol] 3.9 g/dL 2.2-4.2 [facility] Serum or plasma alanine galan otransferase (ALT) measurementOrdered By: Art Tom on 11-16-2024 ALT [Catalytic activity/Vol] 32 U/L 16-61 [facility] Serum or plasma albumin stephen urement (mass/volume)Ordered By: Art Tom on 11-16-2024 Albumin [Mass/Vol] 3.8 g/dL 3.2-5.0 [facility] Serum or plasma alkaline blanka sphatase measurementOrdered By: Art Tom on 11-16-2024 ALP [Catalytic activity/Vol] 72 U/L 45-117 [facility] Serum or plasma calcium stephen urement (mass/volume)Ordered By: Art Tom on 11-16-2024 Calcium [Mass/Vol] 9.4 mg/dL 8.5-10.1 [facility] Serum or plasma creatinine m easurement (mass/volume)Ordered By: Art Tom on 11-16-2024 Creatinine [Mass/Vol] 1.26 mg/dL 0.70-1.30 [facility] Comment on above: The validity of the calculated GFR & GFRAA in patients over 70 years has not been determined. Clinical correlation is essential. Serum or plasma urea nitroge n measurement (mass/volume)Ordered By: Art Tom on 11-16-2024 Urea nitrogen [Mass/Vol] 13 mg/dL 7-18 [facility] Sodium levelOrdered By: Adis Tom on 11-16-2024 Sodium [Moles/Vol] 136 mmol/L 136-145 [facility] Total proteinOrdered By: Makenzie Tom on 11-16-2024 Protein [Mass/Vol] 7.7 g/dL 6.4-8.2 [facility] Troponin IOrdered By: Cassie Tom on 11-16-2024 Troponin I High Sensitivity 20 pg/mL 3.0-78.0 [facility] Comment on above: Please Note: New Hali t Units and Gender Specific Reference Ranges. For more information see Policy Stat Procedure [place] High Sensitivity Troponin (TNIH) and attachments. Urinalysis, Completeon 11-16 BACTERIA RARE Normal None Seen [facility] Comment on above: Order Comment: CLEAN CATCH Performed By: #### L 400.0001 #### [facility] [address] [place], [address] WBC 0-5 SEEN Normal 0-5 [facility] Comment on above: Order Comment: CLEAN CATCH Performed By: #### L 400.0001 #### [facility] [address] [place], [address] EPI,SQUAMOUS 0 SEEN Normal 0-5 [facility] Comment on above: Order Comment: CLEAN CATCH Performed By: #### L [id number] #### [facility] [address] [place], [address] Mucus Ql (Urine sed) 0 SEEN Normal [facility] Comment on above: Order Comment: CLEAN CATCH Performed By: #### L [id number] #### [facility] [address] [place], [address] RBC 0 SEEN Normal 0-5 [facility] Comment on above: Order Comment: CLEAN CATCH Performed By: #### L [id number] #### [facility] [address] [place], [address] Urine blood detectionOrdered By: Art Tom on 11-16-2024 Urine Occult Blood Negative Negative [facility] Urine clarityOrdered By: Makenzie Tom on 11-16-2024 Clarity (U) Clear Clear [facility] Urine color determinationOrd ered By: Art Tom on 11-16-2024 Color (U) Yellow Yellow [facility] Urine leukocyte esterase det ection by dipstickOrdered By: Art Tom on 11-16-2024 Leukocyte esterase Test strip Ql (U) Negative Negative [facility] Urine pHOrdered By: Art Tom on 11-16-2024 pH (U) 6.0 [pH] 5.0 - 8.0 [facility] Urine specific gravity measu rementOrdered By: Art Tom on 11-16-2024 Specific gravity (U) [Rel density] 1.025 1.002-1.030 [facility] Urobilinogen Ql (U)Ordered B y: Art Tom on 11-16-2024 Urine Urobilinogen Normal mg/dl Normal [facility] White blood cell (WBC) count Ordered By: Art Tom on 11-16-2024 WBC (Bld) [#/Vol] 7.8 10*3/uL 4.4-11.0 [facility] White blood cell countOrdere d By: Art Tom on 11-16-2024 Urine WBC 0-5 SEEN /hpf 0-5 [facility] MRI BRAIN WITHOUT CONTRASTon 11-08-2024 MRI BRAIN WITHOUT CONTRAST EXAM: MRI BRAIN WITHOUT CONTRAST, 11/02/2024 14:10 PM COMPARISON: No priors available for comparison. CLINICAL INDICATIONS: 73 years Male memory change RELEVANT CLINICAL HISTORY: R41.3:Memory change Outside Order;MRI Brain without contrast (63432); TECHNIQUE: A series of multisequence, multiplanar images of the brain are obtained without intravenous contrast. FINDINGS: Mild scattered FLAIR hyperintensity in the periventricular and subcortical white matter is nonspecific, but probably due to chronic small vessel changes. No evidence of edema. No evidence of mass lesion. No evidence of hemorrhage. No diffusion restriction or evidence of acute infarct is identified. No extracerebral collection. Sellar and parasellar structures are unremarkable. Posterior fossa is unremarkable. Prominence of ventricles and sulci is compatible with generalized brain parenchymal volume loss. There is disproportionately severe volume loss of the medial temporal lobes and hippocampi, with ex vacuo dilation of the temporal horns. Extracranial structures are unremarkable. IMPRESSION: Diffuse brain volume loss, which is disproportionately severe in the medial temporal lobes and hippocampi. This can be seen with Alzheimer's disease in the appropriate clinical setting. Normal [facility] MRI PLAIN FILM FOR NEURO EXA 11-07-2024 MRI PLAIN FILM FOR NEURO EXAM EXAM: MRI PLAIN FILM FOR NEURO EXAM, 11/02/2024 11:54 AM COMPARISON: XR CHEST PA AND LATERAL July 11, 2018 . CLINICAL INDICATIONS: 73 years Male clearance RELEVANT CLINICAL HISTORY: Chest xray; FINDINGS: Radiograph(s) of the chest, abdomen and pelvis were obtained as part of safety screening prior to an MRI examination. There is a pacemaker/defibrillat or with 3 leads which appears similar to the prior study. There is an implanted metallic gridlike device in the left lateral chest wall at the level of the apex of the heart with a lead extending inferiorly along the left abdominal flank. Visualized portion appears similar compared to previous chest x-ray from July 11, 2018, where it was suggested to potentially be an abandoned subcutaneous defibrillator device. No major incidental findings are seen. IMPRESSION: 3-lead pacemaker/defibrillat or appears similar to July 11, 2018. Implanted metallic device in the left lateral chest wall with lead extending into the left flank which again could be related to an abandoned subcutaneous defibrillator. This does not have an attached pulse generator. Normal [facility] Cardiology Visit Reporton Cardiology Visit Report [facility] [address] [place] [address] OFFICE VISIT Date of Service: 08/11/24 MR#: [id number] Acct: [id number] Name: NICOL ONEILL Rep #: [id number] : 1950 Provider: VERONICA blanton Age/Sex: 73/M Location: [facility] Status: Signed HPI HPI History of Present Illness Details: NICOL ONEILL, is a 73 M who presents to the office today for a cardiovascular visit. He is a gentleman with a history of known coronary artery disease with stenting to mid of mid to distal LAD on 09/09/2009 at [facility], ischemic cardiomyopathy who recently underwent lead revision with placement of an RA and LV lead through the left internal jugular approach. His dual-chamber defibrillator was upgraded to a biventricular ICD. He did have some swelling in his left IJ and underwent an ultrasound evaluation of the above with demonstrated evidence of a thrombus. He was therefore placed on rivaroxaban which he tolerated a repeat ultrasound demonstrated complete resolution of the thrombus. 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 He recently in November 2021 had a ICD battery change out. His last echocardiogram demonstrated an ejection fraction of 45% in December 2022. From a cardiac standpoint, the patient is doing well. He denies any palpitations, chest pain, pressure or heaviness. He denies SOB, Orthopnea, and PND. He does not have bleeding issues; no blood in urine, stool or nosebleeds. He denies any decrease in energy level, myalgias, or claudication. He does not have edema, or sudden weight gain. He denies dizziness, lightheadedness, syncopal or near syncopal episodes, and headaches. He continues to walk 1-2 miles daily. Intake Vital Signs 02/11/24 14:05 08/11/24 14:30 08/11/24 14:32 Height 5 ft 4 in 5 ft 4 in 5 ft 4 in Weight: 172 lb BMI 29.5 BP 116/74 Blood Pressure Location Lt brachial Position Sitting Respiration 18 Pulse 71 Pulse Source Monitor Pulse Oximetry (%) 94 Intake Visit Reasons: 6 M FU Thermal Cutter Hand Required: No Is patient in pain?: No Allergies No Known Allergies Allergy (Verified 08/11/24 14:32) Medications ???Medication ???Instructions ???Recorded ???Confirmed ???Type aspirin 81 mg tablet,delayed 81 mg PO DAILY@0800 #30 tabs 11/27/14 08/11/24 Rx release cholecalciferol (vitamin D3) 50 2,000 unit PO QDAY 01/04/18 08/11/24 History mcg (2,000 unit) capsule tamsulosin 0.4 mg capsule 0.8 mg PO QHS 06/23/22 08/11/24 History nitroglycerin 0.4 mg sublingual 0.4 mg sublingual Q5M PRN 07/01/23 08/11/24 Rx tablet Cardiac/Chest Pain #25 tabs atorvastatin 40 mg tablet 40 mg PO QHS #90 tabs 12/17/23 08/11/24 Rx lisinopril 5 mg tablet 5 mg PO QDAY #90 tabs 02/21/24 08/11/24 Rx metoprolol succinate 25 mg 25 mg PO DAILY #90 tabs 03/06/24 08/11/24 Rx tablet,extended release 24 hr Have you fallen in the past year?: No PFSH Medical History (Reviewed 08/11/24 @ 14:32 by Venessa Kwan FOOD SERVICE ASSISTANT, FOOD SERVICE ASSISTANT-C) 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-sustained ventricular tachycardia Obesity Hyperlipidemia Acute thrombosis of left internal jugular vein (07/19/18) 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 of inferior wall myocardial infarction (1992) Ischemic cardiomyopathy Paroxysmal ventricular fibrillation Abnormal electrocardiogram Bradycardia Anxiety Ventricular arrhythmia Surgical History History of radiofrequency ablation procedure for cardiac arrhythmia (04/24/11) History of coronary angioplasty (1992) Presence of biventricular implantable cardioverter-defibril lator (ICD) (07/11/18) History of coronary artery stent placement (09/09/09) AICD (automatic cardioverter/defibril lator) present (05/1993) Family History (Reviewed 08/11/24 @ 14:32 by Venessa Kwan FOOD SERVICE ASSISTANT, FOOD SERVICE ASSISTANT-C) Mother , 48 of lung cancer CAD (coronary artery disease) Cancer Father , age 56 CAD (coronary artery disease) Myocardial infarction Sudden cardiac Social History Smoking Status: Former smoker ROS Const Const: Negative for fatigue, weakness, headache(s), daytime sleepiness or difficulty sleeping ENT ENT: Negative for headache(s), dizziness or Nosebleed/epistaxis Cardio Chest Pain: No Palpitations: No Edema: None Resp Respiratory: Negative for SOB with activity, SOB at rest, SOB orthopnea SOB lying down or Cough GI GI: Negative nausea, vomiting or heartburn Neuro Neuro: Negative for dizziness, lightheadedness, near syncope, headache(s) or weakness Endo Endo: Negative for fatigue Cardiology Exam Const (more content not included)... Normal [facility] CBC-Complete Blood Cnt No Di ffon 07-11-2024 Erythrocyte distribution width (RBC) [Ratio] 12.9 % Normal 11.6-14.6 [facility] Comment on above: Order Comment: Order Date: 02/15/24 Order Info: [id number] - CBC Order Info: [id number] - SED Performed By: #### L 501.9940, L500.4100, L501.9520, L100.0500, L500.4050 #### [facility] [address] [place], [address] Hematocrit (Bld) [Volume fraction] 44.7 % Normal 40-54 [facility] Comment on above: Order Comment: Order Date: 02/15/24 Order Info: [id number] - CBC Order Info: [id number] - SED Performed By: #### L 501.9940, L500.4100, L501.9520, L100.0500, L500.4050 #### [facility] [address] [place], [address] Hemoglobin (Bld) [Mass/Vol] 15.2 g/dL Normal 13.0-16.5 [facility] Comment on above: Order Comment: Order Date: 02/15/24 Order Info: [id number] - CBC Order Info: [id number] - SED Performed By: #### L 501.9940, L500.4100, L501.9520, L100.0500, L500.4050 #### [facility] [address] [place], [address] MCH (RBC) [Entitic mass] 30.2 pg Normal 27.0-32.0 [facility] Comment on above: Order Comment: Order Date: 02/15/24 Order Info: [id number] - CBC Order Info: [id number] - SED Performed By: #### L 501.9940, L500.4100, L501.9520, L100.0500, L500.4050 #### [facility] [address] [place], [address] MCHC (RBC) [Mass/Vol] 34.0 g/dL Normal 32-36 [facility] Comment on above: Order Comment: Order Date: 02/15/24 Order Info: [id number] - CBC Order Info: [id number] - SED Performed By: #### L 501.9940, L500.4100, L501.9520, L100.0500, L500.4050 #### [facility] [address] [place], [address] MCV (RBC) [Entitic vol] 88.9 fL Normal 80-94 [facility] Comment on above: Order Comment: Order Date: 02/15/24 Order Info: [id number] - CBC Order Info: [id number] - SED Performed By: #### L 501.9940, L500.4100, L501.9520, L100.0500, L500.4050 #### [facility] [address] [place], [address] Platelet mean volume (Bld) [Entitic vol] 9.9 fL Normal 6.2-12.0 [facility] Comment on above: Order Comment: Order Date: 02/15/24 Order Info: [id number] - CBC Order Info: [id number] - SED Performed By: #### L 501.9940, L500.4100, L501.9520, L100.0500, L500.4050 #### [facility] [address] [place], [address] Platelets (Bld) [#/Vol] 173 10*3/uL Normal 150-450 [facility] Comment on above: Order Comment: Order Date: 02/15/24 Order Info: [id number] - CBC Order Info: [id number] - SED Performed By: #### L 501.9940, L500.4100, L501.9520, L100.0500, L500.4050 #### [facility] [address] [place], [address] RBC (Bld) [#/Vol] 5.03 10*6/uL Normal 4.6-6.2 [facility] Comment on above: Order Comment: Order Date: 02/15/24 Order Info: [id number] - CBC Order Info: [id number] - SED Performed By: #### L 501.9940, L500.4100, L501.9520, L100.0500, L500.4050 #### [facility] [address] [place], [address] RDW SD 41.6 fl Normal 35.1-43.9 [facility] Comment on above: Order Comment: Order Date: 02/15/24 Order Info: [id number] - CBC Order Info: [id number] - SED Performed By: #### L 501.9940, L500.4100, L501.9520, L100.0500, L500.4050 #### [facility] [address] [place], [address] WBC (Bld) [#/Vol] 7.0 10*3/uL Normal 4.4-11.0 [facility] Comment on above: Order Comment: Order Date: 02/15/24 Order Info: [id number] - CBC Order Info: [id number] - SED Performed By: #### L 501.9940, L500.4100, L501.9520, L100.0500, L500.4050 #### [facility] [address] [place], [address] Comprehensive Metabolic Prof [facility] 07-11-2024 Albumin [Mass/Vol] 3.7 g/dL Normal 3.2-5.0 [facility] Comment on above: Order Comment: Order Date: 02/15/24Order Info: [id number] - CMPOrder Info: [id number] - LIPIDOrder Info: [id number] - TSHOrder Info: [id number] - PSAD Performed By: #### M 100.678 #### [facility] [address] [place], [address] Albumin/Globulin [Mass ratio] 1.1 {ratio} Normal 0.9-2.4 [facility] Comment on above: Order Comment: Order Date: 02/15/24Order Info: [id number] - CMPOrder Info: [id number] - LIPIDOrder Info: [id number] - TSHOrder Info: [id number] - PSAD Performed By: #### M 100.678 #### [facility] [address] [place], [address] ALK P 65 U/L Normal 45-117 [facility] Comment on above: Order Comment: Order Date: 02/15/24Order Info: [id number] - CMPOrder Info: [id number] - LIPIDOrder Info: [id number] - TSHOrder Info: [id number] - PSAD Performed By: #### M 100.678 #### [facility] [address] [place], [address] ALT [Catalytic activity/Vol] 27 U/L Normal 16-61 [facility] Comment on above: Order Comment: Order Date: 02/15/24Order Info: 86-1 - CMPOrder Info: [id number] - LIPIDOrder Info: [id number] - TSHOrder Info: 83-1 - PSAD Performed By: #### M 100.678 #### [facility] [address] [place], [address] AST [Catalytic activity/Vol] 20 U/L Normal 15-37 [facility] Comment on above: Order Comment: Order Date: 02/15/24Order Info: 86-1 - CMPOrder Info: [id number] - LIPIDOrder Info: 6-3 - TSHOrder Info: 83-1 - PSAD Performed By: #### M 100.678 #### [facility] [address] [place], [address] Bilirubin [Mass/Vol] 0.50 mg/dL Normal 0.20-1.00 [facility] Comment on above: Order Comment: Order Date: 02/15/24Order Info: 86-1 - CMPOrder Info: [id number] - LIPIDOrder Info: 3 - TSHOrder Info: 83-1 - PSAD Result Comment: For patients on eltrombopag therapy, use of Dimension [place] TBIL is not recommended. Performed By: #### M 100.678 #### [facility] [address] [place], [address] BUN/CRE 15.5 RATIO Normal 10-20 [facility] Comment on above: Order Comment: Order Date: 02/15/24Order Info: 86-1 - CMPOrder Info: [id number] - LIPIDOrder Info: 6-3 - TSHOrder Info: 83-1 - PSAD Performed By: #### M 100.678 #### [facility] [address] [place] [place], [address] CA,Total 9.0 mg/dL Normal 8.5-10.1 [facility] Comment on above: Order Comment: Order Date: 02/15/24Order Info: 86-1 - CMPOrder Info: [id number] - LIPIDOrder Info: [id number] - TSHOrder Info: [id number] - PSAD Performed By: #### M 100.678 #### [facility] [address] [place], [place], [address] Chloride [Moles/Vol] 105 mmol/L Normal 98-107 [facility] Comment on above: Order Comment: Order Date: 02/15/24Order Info: 86-1 - CMPOrder Info: [id number] - LIPIDOrder Info: [id number] - TSHOrder Info: [id number] - PSAD Performed By: #### M 100.678 #### [facility] [address] [place], [place], [address] CO2 [Moles/Vol] 23.0 mmol/L Normal 21.0-32.0 [facility] Comment on above: Order Comment: Order Date: 02/15/24Order Info: 86-1 - CMPOrder Info: [id number] - LIPIDOrder Info: 6-3 - TSHOrder Info: [id number] - PSAD Performed By: #### M 100.678 #### [facility] [address] [place], [place], [address] Creatinine [Mass/Vol] 1.16 mg/dL Normal 0.70-1.30 [facility] Comment on above: Order Comment: Order Date: 02/15/24Order Info: 86-1 - CMPOrder Info: [id number] - LIPIDOrder Info: [id number] - TSHOrder Info: [id number] - PSAD Result Comment: The validity of the calculated GFR GFRAA in patients over 70 years has not been determined. Clinical correlation is essential. Performed By: #### M 100.678 #### [facility] [address] [place], [place], [address] EST GFR - AA 80 mL/min Normal >60 [facility] Comment on above: Order Comment: Order Date: 02/15/24Order Info: 86-1 - CMPOrder Info: [id number] - LIPIDOrder Info: [id number] - TSHOrder Info: [id number] - PSAD Result Comment: Afri can [place] GFR Calc Performed By: #### M 100.678 #### [facility] [address] [place], [address] GAP 7 Normal 5-15 [facility] Comment on above: Order Comment: Order Date: 02/15/24Order Info: 86-1 - CMPOrder Info: [id number] - LIPIDOrder Info: [id number] - TSHOrder Info: 83-1 - PSAD Performed By: #### M 100.678 #### [facility] [address] [place], [address] GFR/1.73 sq M.predicted among non-blacks MDRD (S/P/Bld) [Vol rate/Area] 66 mL/min/{1.73_m2} Normal >60 [facility] Comment on above: Order Comment: Order Date: 02/15/24Order Info: [id number] - CMPOrder Info: [id number] - LIPIDOrder Info: 6-3 - TSHOrder Info: [id number] - PSAD Result Comment: Non- GFR Calc Performed By: #### M 100.678 #### [facility] [address] [place], [address] Globulin (S) [Mass/Vol] 3.5 g/dL Normal 2.2-4.2 [facility] Comment on above: Order Comment: Order Date: 02/15/24Order Info: [id number] - CMPOrder Info: [id number] - LIPIDOrder Info: [id number] - TSHOrder Info: [id number] - PSAD Performed By: #### M 100.678 #### [facility] [address] [place], [address] Glucose [Mass/Vol] 106 mg/dL Normal 74-106 [facility] Comment on above: Order Comment: Order Date: 02/15/24Order Info: 86-1 - CMPOrder Info: [id number] - LIPIDOrder Info: 6-3 - TSHOrder Info: [id number] - PSAD Result Comment: Fast ing Glucose result from 100 to 125 mg/dL suggests IMPAIRED HOMEOSTASIS per A.D.A. criteria. Performed By: #### M 100.678 #### [facility] [address] [place], [address] Potassium [Moles/Vol] 4.5 mmol/L Normal 3.5-5.1 [facility] Comment on above: Order Comment: Order Date: 02/15/24Order Info: [id number] - CMPOrder Info: [id number] - LIPIDOrder Info: [id number] - TSHOrder Info: [id number] - PSAD Performed By: #### M 100.678 #### [facility] [address] [place], [address] Sodium [Moles/Vol] 135 mmol/L Low 136-145 [facility] Comment on above: Order Comment: Order Date: 02/15/24Order Info: 86-1 - CMPOrder Info: [id number] - LIPIDOrder Info: [id number] - TSHOrder Info: [id number] - PSAD Performed By: #### M 100.678 #### [facility] [address] [place], [address] T PROT 7.2 g/dL Normal 6.4-8.2 [facility] Comment on above: Order Comment: Order Date: 02/15/24Order Info: [id number] - CMPOrder Info: [id number] - LIPIDOrder Info: [id number] - TSHOrder Info: [id number] - PSAD Performed By: #### M 100.678 #### [facility] [address] [place], [address] Urea nitrogen [Mass/Vol] 18 mg/dL Normal 7-18 [facility] Comment on above: Order Comment: Order Date: 02/15/24Order Info: [id number] - CMPOrder Info: [id number] - LIPIDOrder Info: [id number] - TSHOrder Info: [id number] - PSAD Performed By: #### M 100.678 #### [facility] [address] [place], [address] Erythrocyte Sed Rateon 07-11 SED RATE 4 mm/hr Normal 0-20 [facility] Comment on above: Order Comment: Order Date: 02/15/24Order Info: [id number] - CBCOrder Info: [id number] - SED Performed By: #### M 100.678 #### [facility] [address] [place], [address] Lipid Profileon 07-11-2024 Cholesterol [Mass/Vol] 135 mg/dL Normal 200 [facility] Comment on above: Order Comment: Order Date: 02/15/24Order Info: [id number] - CMPOrder Info: [id number] - LIPIDOrder Info: [id number] - TSHOrder Info: [id number] - PSAD Result Comment: <200 mg/dL Desirable 200-240 mg/dL Borderline >240 mg/dL High Risk Performed By: #### M 100.678 #### [facility] [address] [place], [address] Cholesterol in HDL [Mass/Vol] 43 mg/dL Normal [facility] Comment on above: Order Comment: Order Date: 02/15/24Order Info: [id number] - CMPOrder Info: [id number] - LIPIDOrder Info: [id number] - TSHOrder Info: [id number] - PSAD Result Comment: The drugs N-Acetylcysteine and Metamizole may falsely depress this assay. Reference Range HDL <40 mg/dL Low HDL Cholesterol HDL >or= 60 mg/dL High HDL Cholesterol Performed By: #### M 100.678 #### [facility] [address] [place], [address] Cholesterol in LDL [Mass/Vol] 77 mg/dL Normal 0-130 [facility] Comment on above: Order Comment: Order Date: 02/15/24Order Info: [id number] - CMPOrder Info: [id number] - LIPIDOrder Info: [id number] - TSHOrder Info: [id number] - PSAD Performed By: #### M 100.678 #### [facility] [address] [place], [place], [address] Cholesterol in VLDL [Mass/Vol] 15 mg/dL Normal 5-40 [facility] Comment on above: Order Comment: Order Date: 02/15/24Order Info: 86-1 - CMPOrder Info: [id number] - LIPIDOrder Info: [id number] - TSHOrder Info: 83-1 - PSAD Performed By: #### M 100.678 #### [facility] [address] [place], [address] Triglyceride [Mass/Vol] 74 mg/dL Normal [facility] Comment on above: Order Comment: Order Date: 02/15/24Order Info: 86-1 - CMPOrder Info: [id number] - LIPIDOrder Info: [id number] - TSHOrder Info: 83-1 - PSAD Result Comment: The drugs N-Acetylcysteine and Metamizole may falsely depress this assay. Serum Triglycerides Reference Interval Normal <150 mg/dL Borderline high 150 - 199 mg/dL High 200 - 499 mg/dL Very High > or = 500 mg/dL Performed By: #### M 100.678 #### [facility] [address] [place], [place], [address] PSA,Total- Diagnosticon 06-29 PSA, DIAGNOSTIC 3.10 ng/mL Normal 0.0-4.0 [facility] Comment on above: Order Comment: Order Date: 02/15/24Order Info: [id number] - CMPOrder Info: [id number] - LIPIDOrder Info: [id number] - TSHOrder Info: [id number] - PSAD Result Comment: This test was performed using the TPSA assay method for the [employer] chemistry system. Values obtained with different assay methods cannot be used interchangably. When changing PSA assays in the course of monitoring a patient, additional sequential testing should be carried out to confirm baseline values. Performed By: #### M 100.678 #### [facility] [address] [place], [place], [address] Thyroid Stim Hormone (TSH)on 07-11-2024 TSH 1.360 uIU/mL Normal 0.358-3.740 [facility] Comment on above: Order Comment: Order Date: 02/15/24Order Info: [id number] - CMPOrder Info: [id number] - LIPIDOrder Info: [id number] - TSHOrder Info: [id number] - PSAD Performed By: #### M 100.678 #### [facility] [address] [place], [place], [address] Vitamin B12on 07-11-2024 Cobalamin (Vitamin B12) [Mass/Vol] 429 pg/mL Normal 211-911 [facility] Comment on above: Order Comment: Order Date: 02/15/24Order Info: [id number] - B12 Performed By: #### M 100.678 #### [facility] [address] [place], [place], [address] Basophil percentageOrdered B y: Venessa Kwan on 12-30-2022 Bilirubin [Mass/Vol] 0.60 mg/dL 0.20-1.00 [facility] Comment on above: For patients on eltr ombopag therapy, use of Dimension [place] TBIL is not recommended. Cholesterol [Mass/Vol] 155 mg/dL <200 [facility] Comment on above: <200 mg/dL Desirable 200-240 mg/dL Borderline >240 mg/dL High Risk Protein [Mass/Vol] 7.5 g/dL 6.4-8.2 [facility] Triglyceride [Mass/Vol] 97 mg/dL <199 [facility] Comment on above: The drugs N-Acetylcy steine and Metamizole may falsely depress this assay.Serum Triglycerides Reference Interval Normal <150 mg/dL Borderline high 150 - 199 mg/dL High 200 - 499 mg/dL Very High > or = 500 mg/dL Direct bilirubinOrdered By: Venessa Kwan on 12-30-2022 Bilirubin.direct [Mass/Vol] 0.13 mg/dL 0.00-0.30 [facility] - Chemistry and C hemistry - challengeOrdered By: Venessa Kwan on 12-30-2022 ALP [Catalytic activity/Vol] 71 U/L 45-117 [facility] ALT [Catalytic activity/Vol] 30 U/L 16-61 [facility] Globulin (S) [Mass/Vol] 3.8 g/dL 2.2-4.2 [facility] Serum or plasma albumin stephen urement (mass/volume)Ordered By: Venessa Kwan on 12-30-2022 Albumin [Mass/Vol] 3.7 g/dL 3.2-5.0 [facility] Serum or plasma cholesterol in HDL measurement (mass/volume)Ordered By: Venessa Kwan on 12-30-2022 Cholesterol in HDL [Mass/Vol] 40 mg/dL >40 [facility] Comment on above: The drugs N-Acetylcy steine and Metamizole may falsely depress this assay. Reference Range HDL <40 mg/dL Low HDL Cholesterol HDL >or= 60 mg/dL High HDL Cholesterol Serum or plasma cholesterol in VLDL measurement (mass/volume)Ordered By: Venessa Kwan on 12-30-2022 Cholesterol in VLDL [Mass/Vol] 19 mg/dL 5-40 [facility] Serum or plasma low density lipoprotein (LDL) cholesterol measurement (mass/volume)Ordered By: Venessa Kwan on 12-30-2022 Cholesterol in LDL [Mass/Vol] 96 mg/dL 0-130 [facility] Thin prep Papanicolaou smear with manual screeningOrdered By: Venessa Kwan on 12-30-2022 Thin prep Papanicolaou smear with manual screening 23 U/L 15-37 [facility] - Microbiology an d Antimicrobial susceptibilityon 05-26-2022 SARS-CoV-2 (COVID-19) RNA MARIA EUGENIA+probe Ql (Unsp spec) Not detected Not Detect [facility] Work Phone: Comment on above: Normal Reference Ran ge: Not DetectedMethod:(RT-PCR) real-time reverse transcriptase PCRLuminex NEGIN Instrument*The Food and Drug Administration (FDA) has issued an Emergency Use Authorization (EAU) for the NEGIN SARS-CoV-2 Assay for the rapid detection of the virus that causes COVID-19. This test has been validated, but the FDAs independent review of this validation is pending.*Negative results do not preclude infection and should not be used as the sole basis for treatment or patient management. Optimum specimen types and timing for peak viral levels during infections caused by SARS-CoV-2 have not been determined. Collection of multiple specimens from the same patient may be necessary to detect the virus. The possibility of a false negative result should be considered if the patient has clinical presentation or has had recent exposure. Laboratory - Microbiology an d Antimicrobial susceptibilityon 12-09-2021 SARS-CoV-2 (COVID-19) RNA MARIA EUGENIA+probe Ql (Unsp spec) Not detected Not Detect [facility] Work Phone: Comment on above: Normal Reference Ran ge: Not DetectedMethod:(RT-PCR) real-time reverse transcriptase PCRLuminex NEGIN Instrument*The Food and Drug Administration (FDA) has issued an Emergency Use Authorization (EAU) for the NEGIN SARS-CoV-2 Assay for the rapid detection of the virus that causes COVID-19. This test has been validated, but the [facility] independent review of this validation is pending.*Negative results do not preclude infection and should not be used as the sole basis for treatment or patient management. Optimum specimen types and timing for peak viral levels during infections caused by SARS-CoV-2 have not been determined. Collection of multiple specimens from the same patient may be necessary to detect the virus. The possibility of a false negative result should be considered if the patient has clinical presentation or has had recent exposure. Basophil percentageon 2021 Basophil percentage 0-5 SEEN /hpf [facility] Work Phone: [phone] Bilirubin [Mass/Vol] 0.60 mg/dL 0.20-1.00 [facility] Work Phone: Comment on above: For patients on eltr ombopag therapy, use of Dimension T[place]ile TBIL is not recommended. Chloride [Moles/Vol] 104 mmol/L 98-107 [facility] Work Phone: Cholesterol [Mass/Vol] 169 mg/dL <200 [facility] Work Phone: Comment on above: <200 mg/dL Desirable 200-240 mg/dL Borderline >240 mg/dL High Risk Glucose [Mass/Vol] 88 mg/dL 74-106 [facility] Work Phone: Comment on above: Please note revised GLUCOSE reference range effective 2017. Potassium [Moles/Vol] 4.1 mmol/L 3.5-5.1 [facility] Work Phone: Protein [Mass/Vol] 7.6 g/dL 6.4-8.2 [facility] Work Phone: [phone] Sodium [Moles/Vol] 139 mmol/L 136-145 [facility] Work Phone: Triglyceride [Mass/Vol] 171 mg/dL [facility] Work Phone: Comment on above: The drugs N-Acetylcy steine and Metamizole may falsely depress this assay.Serum Triglycerides Reference Interval Normal <150 mg/dL Borderline high 150 - 199 mg/dL High 200 - 499 mg/dL Very High > or = 500 mg/dL WBC (Bld) [#/Vol] 8.1 10*3/uL 4.4-11.0 [facility] Work Phone: Bilirubin Test strip Ql (U)o n 12-08-2021 Bilirubin Ql (U) Negative Negative [facility] Work Phone: [phone] Blood erythrocytes count (nu mber/volume)on 12-08-2021 RBC (Bld) [#/Vol] 5.10 10*6/uL 4.6-6.2 [facility] Work Phone: [phone] Blood hemoglobin measurement (mass/volume)on 12-08-2021 Hemoglobin (Bld) [Mass/Vol] 15.4 g/dL 13.0-16.5 [facility] Work Phone: [phone] Blood platelet mean volumeon 12-08-2021 Platelet mean volume (Bld) [Entitic vol] 9.9 fL 6.2-12.0 [facility] Work Phone: [phone] Determination of erythrocyte mean corpuscular volume (MCV)on 12-08-2021 MCV (RBC) [Entitic vol] 91.6 fL 80-94 [facility] Work Phone: Direct bilirubinon 2 Bilirubin.direct [Mass/Vol] 0.15 mg/dL 0.00-0.30 [facility] Work Phone: Hematocrit Auto (Bld) [Volum e fraction]on 12-08-2021 Hematocrit (Bld) [Volume fraction] 46.7 % 40-54 [facility] Work Phone: INR in Blood by Coagulation assayon 12-08-2021 INR Coag (Bld) [Relative time] 1.1 {INR} [facility] Work Phone: Ketones Test strip Ql (U)on 12-08-2021 Ketones Ql (U) Negative Negative [facility] Work Phone: Laboratory - Chemistry and C hemistry - challengeon 12-08-2021 ALP [Catalytic activity/Vol] 70 U/L 45-117 [facility] Work Phone: ALT [Catalytic activity/Vol] 31 U/L 16-61 [facility] Work Phone: CO2 [Moles/Vol] 29.0 mmol/L 21.0-32.0 [facility] Work Phone: Globulin (S) [Mass/Vol] 3.9 g/dL 2.2-4.2 [facility] Work Phone: Urea nitrogen/Creatinine [Mass ratio] 16.7 mg/mg 10-20 [facility] Work Phone: Laboratory - Coagulationon 0 12-08-2021 PT Coag (PPP) [Time] 13.2 s 11.7-14.9 [facility] Work Phone: Laboratory - Hematology and Cell countson 12-08-2021 Erythrocyte distribution width (RBC) [Entitic vol] 43.3 fL 35.1-43.9 [facility] Work Phone: Erythrocyte distribution width (RBC) [Ratio] 13.0 % 11.6-14.6 [facility] Work Phone: MCH (RBC) [Entitic mass] 30.2 pg 27.0-32.0 [facility] Work Phone: MCHC Auto (RBC) [Mass/Vol]on 12-08-2021 MCHC (RBC) [Mass/Vol] 33.0 g/dL 32-36 [facility] Work Phone: Mucus LM Ql (Urine sed)on Mucus Ql (Urine sed) 0 SEEN /hpf [facility] Work Phone: Nitrite Test strip Ql (U)on 12-08-2021 Nitrite Ql (U) Negative Negative [facility] Work Phone: No Panel Informationon 12-08 Estimated GFR (MDRD) Amer 87 mL/min >60 [facility] Work Phone: Comment on above: GFR Calc Estimated GFR (MDRD) Non-Af Amer 72 mL/min >60 [facility] Work Phone: Comment on above: Non- GFR Calc Platelets bldon 12-08-2021 Platelets (Bld) [#/Vol] 187 10*3/uL 150-450 [facility] Work Phone: Protein Test strip Ql (U)on 12-08-2021 Protein Ql (U) Negative Negative [facility] Work Phone: Serum or plasma albumin stephen urement (mass/volume)on 12-08-2021 Albumin [Mass/Vol] 3.7 g/dL 3.2-5.0 [facility] Work Phone: Serum or plasma calcium stephen urement (mass/volume)on 12-08-2021 Calcium [Mass/Vol] 9.6 mg/dL 8.5-10.1 [facility] Work Phone: Serum or plasma cholesterol in HDL measurement (mass/volume)on 12-08-2021 Cholesterol in HDL [Mass/Vol] 40 mg/dL [facility] Work Phone: Comment on above: The drugs N-Acetylcy steine and Metamizole may falsely depress this assay. Reference Range HDL <40 mg/dL Low HDL Cholesterol HDL >or= 60 mg/dL High HDL Cholesterol Serum or plasma cholesterol in VLDL measurement (mass/volume)on 12-08-2021 Cholesterol in VLDL [Mass/Vol] 34 mg/dL 5-40 [facility] Work Phone: [phone] Serum or plasma creatinine m easurement (mass/volume)on 12-08-2021 Creatinine [Mass/Vol] 1.08 mg/dL 0.70-1.30 [facility] Work Phone: [phone] Comment on above: The validity of the calculated GFR & GFRAA in patients over 70 years has not been determined. Clinical correlation is essential. Serum or plasma low density lipoprotein (LDL) cholesterol measurement (mass/volume)on 12-08-2021 Cholesterol in LDL [Mass/Vol] 95 mg/dL 0-130 [facility] Work Phone: [phone] Serum or plasma urea nitroge n measurement (mass/volume)on 12-08-2021 Urea nitrogen [Mass/Vol] 18 mg/dL 7-18 [facility] Work Phone: [phone] Squamous epithelial cells de tection in urine sediment by light microscopyon 12-08-2021 Epithelial cells.squamous LM Ql (Urine sed) 0-5 SEEN /hpf [facility] Work Phone: [phone] Thin prep Papanicolaou smear with manual screeningon 12-08-2021 Thin prep Papanicolaou smear with manual screening 22 U/L 15-37 [facility] Work Phone: [phone] Thin prep Papanicolaou smear with manual screening 6 5-15 [facility] Work Phone: [phone] Urine blood detectionon 11-29 RBC Ql (U) Negative Negative [facility] Work Phone: [phone] RBC Ql (U) 0-5 SEEN /hpf [facility] Work Phone: [phone] Urine clarityon 12-08-2021 Clarity (U) Clear Clear [facility] Work Phone: [phone] Urine color determinationon 12-08-2021 Color (U) Yellow Yellow [facility] Work Phone: Urine glucose detectionon Glucose Ql (U) Normal mg/dl Normal [facility] Work Phone: Urine leukocyte esterase det ection by dipstickon 12-08-2021 Leukocyte esterase Test strip Ql (U) 25 /ul Negative [facility] Work Phone: Urine pHon 12-08-2021 pH (U) 6.0 [pH] [facility] Work Phone: Urine sediment bacteria coun t by microscopy (number/high power field)on 12-08-2021 Bacteria LM.HPF (Urine sed) [#/Area] 0 /[HPF] None Seen [facility] Work Phone: Urine specific gravity measu rementon 12-08-2021 Specific gravity (U) [Rel density] 1.015 [facility] Work Phone: Urobilinogen Auto test strip Ql (U)on 12-08-2021 Urobilinogen Ql (U) Normal mg/dl Normal [facility] Work Phone: Lab Report: Basic Metabolic Profile (BMP)on 01-04-2018 Anion gap 8 mmol/L Invalid Interpretation Code 5-15 [facility] Work Phone: [phone] BUN/Creatinine Ratio 23.5 RATIO High 10-20 [facility] Work Phone: [phone] Calcium 8.9 mg/dL Invalid Interpretation Code 8.5-10.1 [facility] Work Phone: [phone] Chloride 106 mmol/L Invalid Interpretation Code 98-107 [facility] Work Phone: [phone] CO2 26.0 mmol/L Invalid Interpretation Code 21.0-32.0 [facility] Work Phone: [phone] Creatinine 0.98 mg/dL Invalid Interpretation Code 0.70-1.30 [facility] Work Phone: [phone] eGFR (non-black) 82 mL/min/{1.73_m2} Invalid Interpretation Code >60 [employer] Work Phone: [phone] eGFR (non-black) 99 mL/min/{1.73_m2} Invalid Interpretation Code >60 [employer] Work Phone: [phone] Glucose 86 mg/dL Invalid Interpretation Code 74-106 [employer] Work Phone: [phone] Potassium 4.3 mmol/L Invalid Interpretation Code 3.5-5.1 [employer] Work Phone: [phone] Sodium 140 mmol/L Invalid Interpretation Code 136-145 [employer] Work Phone: [phone] Urea nitrogen 23 mg/dL High 7-18 [employer] Work Phone: [phone] Lab Report: Magnesiumon Magnesium 2.2 mg/dL Invalid Interpretation Code 1.6-2.6 [employer] Work Phone: [phone] Lab Report: T4 Total, Thyrox inon 01-04-2018 Thyroxine (T4) 8.1 ug/dL Invalid Interpretation Code 4.5-12.1 [employer] Work Phone: [phone] Lab Report: Thyroid Stim Hor tricia (TSH)on 01-04-2018 Thyroid stimulating hormone (TSH) 2.04 u[iU]/mL Invalid Interpretation Code 0.358-3.74 [employer] Work Phone: [phone] Lab Report: Bilirubin, Direc ton 07-13-2017 Bilirubin.direct mass conc 0.12 mg/dL Invalid Interpretation Code 0.00-0.30 [employer] Work Phone: [phone] Lab Report: Comprehensive Me tabolic Profilon 07-13-2017 Albumin mass conc 3.4 g/dL Invalid Interpretation Code 3.4-5.0 [employer] Work Phone: [phone] Albumin/Globulin mass ratio 0.9 {ratio} Invalid Interpretation Code 0.9-2.4 [employer] Work Phone: [phone] Alkaline phosphatase (ALP) 62 U/L Invalid Interpretation Code 45-117 [employer] Work Phone: [phone] ALP enzyme act/vol (Bld) 62 U/L 45-117 [employer] Work Phone: [phone] ALT enzyme act/vol 30 U/L Invalid Interpretation Code 12-78 [facility] Work Phone: [phone] Anion gap 6 mmol/L Invalid Interpretation Code 5-15 [facility] Work Phone: [phone] Anion gap molar conc 6 mmol/L 5-[address] [facility] Work Phone: [phone] AST enzyme act/vol 22 U/L Invalid Interpretation Code 15-37 [facility] Work Phone: [phone] Bilirubin mass conc 0.60 mg/dL Invalid Interpretation Code 0.20-1.00 [facility] Work Phone: [phone] Calcium mass conc 8.7 mg/dL Invalid Interpretation Code 8.5-10.1 [facility] Work Phone: [phone] Chloride molar conc 106 mmol/L Invalid Interpretation Code 98-107 [facility] Work Phone: [phone] CO2 26.0 mmol/L Invalid Interpretation Code 21.0-32.0 [facility] Work Phone: [phone] CO2 ppres (BldV) 26.0 mmol/L 21.0-32.0 [facility] Work Phone: [phone] Creatinine mass conc 1.06 mg/dL Invalid Interpretation Code 0.70-1.30 [facility] Work Phone: [phone] eGFR (non-black) 90 mL/min/{1.73_m2} Invalid Interpretation Code >60 [facility] Work Phone: [phone] EST GFR - AA 90 mL/min >60 [facility] Work Phone: [phone] GFR/1.73 sq M predicted among non-blacks MDRD vol rate/area (S/P/Bld) 75 mL/min/{1.73_m2} Invalid Interpretation Code >60 [facility] Work Phone: [phone] Globulin 3.6 g/dL High 2.3-3.5 [facility] Work Phone: [phone] Globulin mass conc (S) 3.6 g/dL High 2.3-3.5 [facility] Work Phone: [phone] Glucose 82 mg/dL Invalid Interpretation Code 70-110 [employer] Work Phone: [phone] Glucose mass conc 82 mg/dL 70-110 [employer] Work Phone: [phone] Potassium molar conc 4.3 mmol/L Invalid Interpretation Code 3.5-5.1 [employer] Work Phone: [phone] Protein mass conc 7.0 g/dL Invalid Interpretation Code 6.4-8.2 [employer] Work Phone: [phone] Sodium molar conc 138 mmol/L Invalid Interpretation Code 136-145 [employer] Work Phone: [phone] Urea nitrogen mass conc 21 mg/dL High 7-18 [facility] [employer] Work Phone: [phone] Urea nitrogen/Creatinine mass ratio 19.8 RATIO Invalid Interpretation Code 10-20 [employer] Work Phone: [phone] Lab Report: Lipid Profileon 07-13-2017 Cholesterol in HDL mass conc 38 mg/dL Low [employer] Work Phone: [phone] Cholesterol in LDL mass conc 91 mg/dL Invalid Interpretation Code 0-130 [employer] Work Phone: [phone] Cholesterol mass conc 170 mg/dL Invalid Interpretation Code 200 [employer] Work Phone: [phone] Lipoprotein.pre-beta mass conc 41 mg/dL High 5-40 [employer] Work Phone: [phone] Triglyceride mass conc 206 mg/dL High [facility] Work Phone: [phone] Lab Report: PSA,Total- Diagn osticon 07-13-2017 prostate specific antigen, total 3.46 ng/mL Invalid Interpretation Code 0.0-4.0 [employer] Work Phone: [phone] Protein mass conc 3.46 ng/mL 0.0-4.0 [employer] Work Phone: [phone] Lab Report: Thyroid Stim Hor tricia (TSH)on 07-13-2017 Thyrotropin Qn 2.82 u[iU]/mL Invalid Interpretation Code 0.358-3.74 [employer] Work Phone: [phone] Office Visit: [facility] 07-25-20 17 Documentation of current medications (procedure) Done Invalid Interpretation Code [employer] Phone: [phone] Protein mass conc Done [employer] Work Phone: [phone] Office Visiton 12-15-2016 Documentation of current medications (procedure) Done Invalid Interpretation Code [employer] Phone: [phone] Clinical Lists Update: [employer] 12-11-2016 Left ventricular Ejection fraction 45 % Invalid Interpretation Code [employer] Work Phone: [phone] Office Visit: [facility] 06-03-20 16 Dietary management education, guidance, and counseling (procedure) yes Invalid Interpretation Code [employer] Phone: [phone] Replaced Document: Jeanmarie Rosa CG Observationson 06-03-2016 EKG QRS axis -91 deg [employer] Work Phone: [phone] electrocardiogram interpretation Wide complex Rhythm -Intraventricular conduction defect -consider left ventricular hypertrophy. -Inferior infarct -age undetermined -Old anterior infarct -Left axis secondary to infarct -consider anterior fascicular block. -Nonspecific ST depression -Nondiagnostic. ABNORMAL Invalid Interpretation Code [employer] Work Phone: [phone] GE use only - for [employer] import when terms are not otherwise specified 494 ms Invalid Interpretation Code [employer] Phone: [phone] Interpretation Wide complex Rhythm -Intraventricular conduction defect -consider left ventricular hypertrophy. -Inferior infarct -age undetermined -Old anterior infarct -Left axis secondary to infarct -consider anterior fascicular block. -Nonspecific ST depression -Nondiagnostic. ABNORMAL [employer] Work Phone: [phone] P [place] 1 deg [employer] Work Phone: P wave axis, electrocardiogram 1 deg Invalid Interpretation Code [employer] Work Phone: W[place] Interval 0 ms [employer] Work Phone: [phone] W[place] interval, electrocardiogram 0 ms Invalid Interpretation Code [employer] Work Phone: [phone] Pulse (Heart Rate) 66 /min Invalid Interpretation Code [employer] Work Phone: QRS axis, electrocardiogram -91 deg Invalid Interpretation Code [employer] Work Phone: [phone] QRS Duration 210 ms [employer] Work Phone: [phone] QRS duration, electrocardiogram 210 ms Invalid Interpretation Code [employer] Phone: [phone] QT Interval new path ms [employer] Work Phone: [phone] QT interval, electrocardiogram new path ms Invalid Interpretation Code [employer] Phone: [phone] QTc Morfin 494 ms [employer] Work Phone: [phone] T [place] 62 deg [employer] Work Phone: [phone] T wave axis, electrocardiogram 62 deg Invalid Interpretation Code [employer] Phone: [phone] Lab Report: Basic Metabolic Profile (BMP)on 01-02-2016 Anion gap 5 mmol/L Invalid Interpretation Code 5-15 [employer] Phone: [phone] BUN/Creatinine Ratio 13.2 RATIO Invalid Interpretation Code 10-20 [employer] Phone: [phone] Calcium 8.5 mg/dL Invalid Interpretation Code 8.5-10.1 [employer] Work Phone: [phone] Chloride 110 mmol/L High 98-107 [employer] Work Phone: [phone] CO2 28.0 mmol/L Invalid Interpretation Code 21.0-32.0 [employer] Phone: [phone] Creatinine 1.14 mg/dL Invalid Interpretation Code 0.70-1.30 [employer] Phone: [phone] eGFR (non-black) 83 mL/min/{1.73_m2} Invalid Interpretation Code >60 [employer] Work Phone: [phone] eGFR (non-black) 69 mL/min/{1.73_m2} Invalid Interpretation Code >60 [employer] Phone: [phone] Glucose 94 mg/dL Invalid Interpretation Code 70-110 [employer] Work Phone: [phone] Glucose mass conc 94 mg/dL Invalid Interpretation Code 70-110 [employer] Work Phone: [phone] Potassium molar conc 4.4 mmol/L Invalid Interpretation Code 3.5-5.1 [employer] Work Phone: [phone] Sodium 143 mmol/L Invalid Interpretation Code 136-145 [facility] Work Phone: [phone] Urea nitrogen 15 mg/dL Invalid Interpretation Code 7-18 [facility] Work Phone: [phone] Lab Report: CBC-Complete Blo od Cnt No Diffon 01-02-2016 Erythrocyte distribution width Auto Ratio (RBC) 13.4 % Invalid Interpretation Code 11.6-14.6 [facility] Work Phone: [phone] Erythrocyte distribution width Ratio (RBC) 13.4 % 11.6-14.6 [facility] Work Phone: [phone] Erythrocyte distribution width Ratio (RBC) 41.4 fL 35.1-43.9 [facility] Work Phone: [phone] Erythrocytes (RBC) 5.14 10*6/uL Invalid Interpretation Code 4.6-6.2 [facility] Work Phone: [phone] Hematocrit (HCT) 44.0 % Invalid Interpretation Code 40-54 [facility] Work Phone: [phone] Hematocrit Volume Fraction (Bld) 44.0 % 40-54 [facility] Work Phone: [phone] Hemoglobin mass conc (Bld) 15.3 g/dL Invalid Interpretation Code 13.0-16.5 [facility] Work Phone: [phone] MCH 29.8 pg Invalid Interpretation Code 27.0-32.0 [facility] Work Phone: [phone] MCH Entitic mass (RBC) 29.8 pg 27.0-32.0 [facility] Work Phone: [phone] MCHC mass conc (RBC) 34.8 G/GL Invalid Interpretation Code 32-36 [facility] Work Phone: [phone] MCHC mass conc (RBC) 34.8 G/GL 32-[address] [facility] [address] [facility] Work Phone: [phone] MCV 85.6 fL Invalid Interpretation Code 80-94 [facility] Work Phone: [phone] MCV Entitic volume (RBC) 85.6 fL 80-94 [facility] Work Phone: Platelet mean volume Entitic volume (Bld) 10.0 fL 6.2-12.0 [employer] Work Phone: [phone] Platelets 154 10*3/mm3 Invalid Interpretation Code 150-450 [facility] Work Phone: [phone] Platelets #/vol (Bld) 154 10*3/mm3 150-450 [facility] [employer] Work Phone: [phone] PMV by Praful 10.0 fL Invalid Interpretation Code 6.2-12.0 [employer] Work Phone: [phone] RBC #/vol (Bld) 5.14 10*6/uL 4.6-6.2 [employer] Work Phone: [phone] RDW SD 41.4 fL Invalid Interpretation Code 35.1-43.9 [employer] Work Phone: [phone] red blood cell distribution width, size density 41.4 fL Invalid Interpretation Code 35.1-43.9 [employer] Work Phone: [phone] WBC #/vol (Bld) 6.3 10*3/uL 4.4-11.0 [employer] Work Phone: [phone] WBC (Leukocytes) 6.3 10*3/uL Invalid Interpretation Code 4.4-11.0 [employer] Work Phone: [phone] Lab Report: Lipid Profileon 01-02-2016 Cholesterol 170 mg/dL Invalid Interpretation Code 200 [employer] Work Phone: [phone] HDL Cholesterol 37 mg/dL Low [employer] Work Phone: [phone] LDL Cholesterol 100 mg/dL Invalid Interpretation Code 0-130 [employer] Work Phone: [phone] Triglyceride 164 mg/dL Invalid Interpretation Code [employer] Work Phone: [phone] very low density lipoproteins 33 mg/dL Invalid Interpretation Code 5-40 [employer] Work Phone: [phone] Lab Report: Liver Profileon 01-02-2016 Alanine aminotransferase (ALT) 31 U/L Invalid Interpretation Code 12-78 [employer] Work Phone: [phone] Albumin 3.3 g/dL Low 3.4-5.0 [facility] Work Phone: [phone] Alkaline phosphatase (ALP) 61 U/L Invalid Interpretation Code 50-136 [employer] Phone: [phone] Aspartate aminotransferase (AST) 21 U/L Invalid Interpretation Code 15-37 [employer] Phone: [phone] Bilirubin (direct) 0.10 mg/dL Invalid Interpretation Code 0.00-0.30 [employer] Work Phone: [phone] Bilirubin (total) 0.30 mg/dL Invalid Interpretation Code 0.20-1.00 [employer] Phone: [phone] Globulin 3.4 g/dL Invalid Interpretation Code 2.3-3.5 [employer] Phone: [phone] Protein 6.7 g/dL Invalid Interpretation Code 6.4-8.2 [employer] Phone: [phone] Lab Report: PSA,Total - Ayala al Screenon 01-02-2016 prostate specific antigen (PSA) screening 1.52 ng/mL Invalid Interpretation Code 0.00-4.00 [employer] Phone: [phone] Protein mass conc 1.52 ng/mL 0.00-4.00 [employer] Phone: [phone] PSA,TOT SCREEN 1.52 ng/mL Invalid Interpretation Code 0.00-4.00 [employer] Phone: [phone] Office Visiton 2015 Tobacco smoking status [facility] Tobacco smoking status NDIS Invalid Interpretation Code [employer] Phone: [phone] Tobacco smoking status [facility] Never smoker [employer] Phone: [phone] Tobacco use [facility] Never smoker Invalid Interpretation Code [employer] Phone: [phone] 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 basophils as percent of blood leukocytes, manual count 0.4 % Invalid Interpretation Code [employer] Phone: [phone] eGFR (non-black) 65 mL/min/{1.73_m2} Invalid Interpretation Code [employer] Phone: eGFR (non-black) 55 mL/min/{1.73_m2} Low [facility] Work Phone: [phone] eosinophils as percent of blood leukocytes, manual count 1.9 % Invalid Interpretation Code [facility] Work Phone: [phone] Glomerular Filtration Rate 65 mL/min/1.73m2 [facility] Work Phone: [phone] Lymphocytes/100 leukocytes 23.3 % Invalid Interpretation Code [facility] Work Phone: [phone] Lymphocytes/100 WBC (Bld) 23.3 % [facility] Work Phone: [phone] Monocytes/100 leukocytes 6.3 % Invalid Interpretation Code [facility] Work Phone: [phone] Monocytes/100 WBC (Bld) 6.3 % [facility] Work Phone: [phone] neutrophils, band form as percent of blood leukocytes, manual count 68.0 % Invalid Interpretation Code [facility] Work Phone: [phone] Office Visit: [facility] 10-15-20 14 cardiac risk group C Invalid Interpretation Code [facility] Work Phone: [phone] General cardiovascular disease 10Y risk [#] Mars.D'Agostino N/A Invalid Interpretation Code [facility] Work Phone: [phone] LDL target level 100 mg/dL Invalid Interpretation Code [facility] Work Phone: [phone] Clinical Lists 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 Isabel Brush MD Work Phone: [facility] 05-02-2025 12:47-0400 Body mass index (BMI) [Ratio] 28.1 kg/m2 Dr. Isabel Brush MD Work Phone: [phone])[phone] [place] [address] 05-02-2025 12:47-0400 Body weight 76.[address] Isabel Brush MD Work Phone: 3(885)736-548974 [place] [address] 05-02-2025 12:47-0400 Diastolic blood pressure 72 mm[Hg] Dr. Isabel Brush MD Work Phone: 2(980)537-248074 [place] [address] 05-02-2025 12:47-0400 Heart rate 77 /min Dr. Isabel Brush MD Work Phone: 3(176)180-301374 [place] [address] 05-02-2025 12:47-0400 Respiratory rate 16 /min Dr. Isabel Brush MD Work Phone: 7(902)480-985174 [place] [address] 05-02-2025 12:47-0400 Systolic blood pressure 102 mm[Hg] Dr. Isabel Brush MD Work Phone: 9([phone])789-080974 [place] [address] 05-01-2025 13:28-0400 Body mass index (BMI) [Ratio] 28.3 kg/m2 Dr. Isabel Brush MD Work Phone: 4([phone])575-027274 [place] [address] 05-01-2025 13:28-0400 Body temperature 98.6 [degF] Dr. Isabel Brush MD Work Phone: 5(729)034-292174 [place] [address] 05-01-2025 13:28-0400 Body weight 77.[address] Isabel Brush MD Work Phone: 3(691)734-967774 [place] [address] 05-01-2025 13:28-0400 Diastolic blood pressure 56 mm[Hg] Dr. Isabel Brush MD Work Phone: 3(841)798-030050 [address] 05-01-2025 13:28-0400 Heart rate 78 /min Dr. Isabel Brush MD Work Phone: 7(606)790-893874 [place] [address] 05-01-2025 13:28-0400 Respiratory rate 16 /min Dr. Isabel Brush MD Work Phone: 0(127)721-305074 [place] [address] 05-01-2025 13:28-0400 SaO2% (BldA) [Mass fraction] 95 % Dr. Isabel Brush MD Work Phone: [facility] 05-01-2025 13:28-0400 Systolic blood pressure 95 mm[Hg] Dr. Isabel Brush MD Work Phone: [facility] 02-06-2025 11:33-0400 Body weight 77.52 kg Nisha Weeks MD Work Phone: [facility] 02-06-2025 11:33-0400 Diastolic blood pressure 73 mm[Hg] Nisha Weeks MD Work Phone: [facility] 02-06-2025 11:33-0400 Heart rate 68 /min Nisha Weeks MD Work Phone: [facility] 02-06-2025 11:33-0400 Systolic blood pressure 111 mm[Hg] Nisha Weeks MD Work Phone: [facility] 11-17-2024 08:35-0500 Diastolic blood pressure 78 mm[Hg] Dr. Isabel Brush MD Work Phone: [facility] 11-17-2024 08:35-0500 Heart rate 83 /min Dr. Isabel Brush MD Work Phone: [facility] 11-17-2024 08:35-0500 Respiratory rate 18 /min Dr. Isabel Brush MD Work Phone: [facility] 11-17-2024 08:35-0500 SaO2% (BldA) [Mass fraction] 97 % Dr. Isabel Brush MD Work Phone: [facility] 11-17-2024 08:35-0500 Systolic blood pressure 128 mm[Hg] Dr. Isabel Brush MD Work Phone: [facility] 11-16-2024 23:58-0500 Body temperature 98 [degF] Dr. Isabel Brush MD Work Phone: [facility] 11-16-2024 21:51-0500 Body height 165.[address] Isaebl Brush MD Work Phone: [facility] 11-16-2024 21:51-0500 Body mass index (BMI) [Ratio] 29 kg/m2 Dr. Isabel Brush MD Work Phone: [facility] 11-16-2024 21:51-0500 Body weight 79.[address] Isabel Brush MD Work Phone: [facility] 12-22-2022 13:41-0500 Body height 162.[address] Bora Brush Work Phone: [facility] 12-22-2022 13:41-0500 Body mass index (BMI) [Ratio] 30.7 kg/m2 Dr. Bora Brush Work Phone: [facility] 12-22-2022 13:41-0500 Body weight 81.[address] Bora Brush Work Phone: [facility] 12-22-2022 13:41-0500 Diastolic blood pressure 71 mm[Hg] Dr. Bora Brush Work Phone: [facility] 12-22-2022 13:41-0500 Heart rate 64 /min Dr. Bora Brush Work Phone: [facility] 12-22-2022 13:41-0500 Respiratory rate 18 /min Dr. Bora Brush Work Phone: [facility] 12-22-2022 13:41-0500 SaO2% (BldA) [Mass fraction] 94 % Dr. Bora Brush Work Phone: [facility] 12-22-2022 13:41-0500 Systolic blood pressure 119 mm[Hg] Dr. Bora Brush Work Phone: [facility] 06-23-2022 12:42-0400 Body height 162.[address] Bora Brush Work Phone: [facility] Work Phone: 06-23-2022 12:42-0400 Body mass index (BMI) [Ratio] 31.4 kg/m2 Dr. Bora Brush Work Phone: [facility] Work Phone: 06-23-2022 12:42-0400 Body weight [address] Bora Brush Work Phone: [facility] Work Phone: 06-23-2022 12:42-0400 Diastolic blood pressure 75 mm[Hg] Dr. Bora Brush Work Phone: [facility] Work Phone: 06-23-2022 12:42-0400 Heart rate 60 /min Dr. Bora Brush Work Phone: [facility] Work Phone: 06-23-2022 12:42-0400 Respiratory rate 16 /min Dr. Bora Brush Work Phone: [facility] Work Phone: 06-23-2022 12:42-0400 SaO2% (BldA) [Mass fraction] 96 % Dr. Bora Brush Work Phone: [facility] Work Phone: 06-23-2022 12:42-0400 Systolic blood pressure 135 mm[Hg] Dr. Bora Brush Work Phone: [facility] Work Phone: 12-18-2021 09:49-0500 Body height 162.[address] Bora Brush Work Phone: [facility] Work Phone: 12-18-2021 09:49-0500 Body weight 83.[address] Bora Brush Work Phone: [facility] Work Phone: 2021 06:55-0500 Body mass index (BMI) [Ratio] 31.7 kg/m2 Dr. Bora Brush Work Phone: [facility] Work Phone: 12-08-2021 09:50-0500 Body mass index (BMI) [Ratio] 31.7 kg/m2 Dr. Bora Brush Work Phone: [facility] Work Phone: 12-08-2021 09:50-0500 Body weight 83.[address] Bora Brush Work Phone: [facility] Work Phone: 12-08-2021 09:50-0500 Diastolic blood pressure 79 mm[Hg] Dr. Bora Brush Work Phone: [facility] Work Phone: 12-08-2021 09:50-0500 Heart rate 69 /min Dr. Bora Brush Work Phone: [facility] Work Phone: 12-08-2021 09:50-0500 Respiratory rate 18 /min Dr. Bora Brush Work Phone: [facility] Work Phone: 12-08-2021 09:50-0500 SaO2% (BldA) [Mass fraction] 93 % Dr. Bora Brush Work Phone: [facility] Work Phone: 12-08-2021 09:50-0500 Systolic blood pressure 125 mm[Hg] Dr. Bora Brush Work Phone: [facility] Work Phone: 06-22-2017 13:10-0400 BMI (Body Mass Index) 26.58 kg/m2 [facility] Work Phone: 06-22-2017 13:10-0400 BP Diastolic 80 mm[Hg] [facility] Work Phone: 06-22-2017 13:10-0400 BP Systolic 120 mm[Hg] [facility] Work Phone: 06-22-2017 13:10-0400 Pulse (Heart Rate) 64 /min [facility] Work Phone: 06-22-2017 13:10-0400 Weight 81.65 kg Shannan Rodrigues [facility] Work Phone: 12-15-2016 16:17-0500 BMI (Body Mass Index) 26.5 kg/m2 [facility] Work Phone: 12-15-2016 16:17-0500 BP Diastolic 60 mm[Hg] [facility] Work Phone: 12-15-2016 16:17-0500 BP Systolic 115 mm[Hg] [facility] Work Phone: 12-15-2016 16:17-0500 BSA (Body Surface Area) 1.97 m2 [facility] Work Phone: 12-15-2016 16:17-0500 Pulse (Heart Rate) 64 /min [facility] Work Phone: 12-15-2016 16:17-0500 Respiratory Rate 20 /min [facility] Work Phone: 12-15-2016 16:17-0500 Weight 81.42 kg [facility] Work Phone: 06-03-2016 16:02-0400 Heart rate 66 /min MD [facility] Work Phone: 02-09-2012 16:07-0400 Height 175.26 cm [facility] Work Phone: Encounters Encounter Date Encounter Type Care Provider Facility Start: 06-15-2025 ambulatory Timoteo Demiter Facility :[facility] Start: 05-08-2025 End: 05-08-2025 ambulatory Timoteo Demiter Facility:[facility] Start: 05-02-2025 End: 05-02-[address] Isabel Brush MD Work Phone: [facility] Work Phone: Start: 05-01-2025 End: 05-01-[address] Siddhartha León MD -[facility] Work Phone: Start: 05-01-2025 End: 05-01-2025 ambulatory Isabel Brush Facility:[facility] Start: 04-03-2025 End: 04-03-2025 [facility] Start: 04-03-2025 End: 04-03-[address] 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 Isabel Brush MD -[facility] Work Phone: Start: 01-10-2025 End: 02-19-[address] Isabel Brush MD Work Phone: [facility] Work Phone: Start: 01-03-2025 End: 01-03-2025 ambulatory Isabel Brush Facility:[facility] Start: 01-03-2025 End: 01-03-[address] Hans Logan MD -[facility] Work Phone: Start: 11-16-2024 End: 11-17-2024 Emergency department patient visit Dr. Art Tom MD -Emergency Department Work Phone: Start: 11-02-2024 ambulatory ISABEL Rubalcava cility:[facility] Start: 11-02-2024 ambulatory ISABEL trippty:[facility] Start: 10-04-2024 End: 10-04-2024 ambulatory Hans Logan Facility:[facility] Start: 08-11-2024 End: 08-11-2024 ambulatory Isabel Brush Facility:[facility] Start: 07-11-2024 End: 07-11-2024 [facility] Start: 07-05-2024 End: 07-05-2024 ambulatory Hans Logan Facility:[facility] Start: 01-01-2023 Non-patient / Non-visit Dr. Lexy Brush Work Phone: [facility] Start: 01-01-[address] Bora Brush Work Phone: [facility]-Cardiovascula r Services Start: 12-30-2022 End: 12-30-[address] Bora Brush Work Phone: [facility] Work Phone: Start: 12-30-2022 End: 12-30-[address] Bora Brush Work Phone: [facility] Start: 12-22-2022 End: 12-22-[address] Bora Brush Work Phone: [facility] Start: 11-18-2022 End: 11-18-[address] Bora Brush Work Phone: [facility] Start: 08-05-2022 Non-patient / Non-visit Dr. Lexy Brush Work Phone: [facility] Start: 08-05-2022 End: 08-05-[address] Bora Brush Work Phone: [facility] Work Phone: Start: 08-05-2022 End: 08-05-[address] Bora Brush Work Phone: [facility]-Cardiovascula r Services Start: 07-02-2022 End: 07-02-[address] Bora Brush Work Phone: [facility]-Laboratory, Specimen Start: 06-23-2022 End: 06-23-[address] Bora Brush Work Phone: [facility] Start: 05-26-2022 End: 05-26-[address] Bora Brush Work Phone: [facility]-Laboratory, Specimen Start: 05-07-2022 End: 05-07-[address] Bora Brush Work Phone: [facility] Start: 03-24-2022 End: 03-24-[address] Bora Brush Work Phone: [facility]-Radiology, [place] Start: 12-25-2021 End: 12-25-[address] Bora Brush Work Phone: [facility] Start: 12-18-2021 Non-patient / Non-visit Dr. Lexy Brush Work Phone: [facility] Start: 12-18-2021 End: 12-18-2021 Admission to same day surgery center Dr. Bora Brush Work Phone: [facility]-[employer]er/Special Procedures Start: 12-08-2021 End: 12-08-[address] Bora Brush Work Phone: [facility] Start: 12-05-[address] Bora Brush Work Phone: [facility] Start: 07-10-2003 End: 07-10-2003 ambulatory Star Hancock Work Phone: Cardiology Comment on above: Patient Education Procedures Date Procedure Procedure Detail Performing Clinician Start: 11-16-2024 X-ray of chest, PA a nd lateral views Dr. Isabel Brush MD Work Phone: Start: 11-16-2024 CT of head without contrast Dr. Isabel Brush MD Work Phone: Start: 11-16-2024 SARS-CoV-2, Influenz a & RSV (PCR) Dr. Isabel Brush MD Work Phone: Start: 08-05-2022 Radionuclide imaging of perfusion of myocardium under exercise stress Dr. Bora Brush Work Phone: Start: 03-24-2022 X-ray of chest posteroanterior view Dr. 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 Soco Zapata PA-C Work Phone: Start: 06-22-2017 End: 06-22-2017 Follow Up Appt 6 months Soco Zapata PA-C Work Phone: Start: 06-22-2017 End: 07-13-2017 Lipid panel [AGGREGATE] Soco Zapata PA-C Work Phone: Start: 04-28-2017 End: 04-30-2017 Interrogation eval remote 90 d 1/2/herb digger ld dfb Hans Logan MD Start: 04-28-2017 End: 06-11-2017 Follow Up Appt 3 months Rachell Chun Start: 04-28-2017 End: 04-30-2017 Icd device interrogat remote Hans Logan MD Start: 04-28-2017 End: 06-11-2017 Pacer Clinic Hans Logan MD Start: 01-18-2017 End: 01-18-2017 Interrogation eval remote 90 d 1/2/herb digger ld dfb Soco Zapata PA-C Work Phone: Start: 01-18-2017 End: 06-11-2017 Follow Up Appt 3 months Soco Zapata PA-C Work Phone: Start: 01-18-2017 End: 01-18-2017 Icd device interrogat remote Soco Zapata PA-C Work Phone: Start: 01-18-2017 End: 06-11-2017 Pacer Clinic Soco Zapata PA-C Work Phone: Start: 12-15-2016 End: 12-15-2016 Follow Up Appt 6 months Rachell Chun Start: 12-15-2016 End: 12-15-2016 MATTHEW Logan MD Start: 12-15-2016 End: 12-15-2016 Follow Up Appt 6 months Rachell Chun Start: 12-15-2016 End: 12-15-2016 MATTHEW Logan MD Start: 10-15-2016 End: 10-20-2016 Interrogation eval remote 90 d 1/2/herb digger ld cristela Logan MD Start: 10-15-2016 End: 06-11-2017 Follow Up Appt 3 months Rachell Chun Start: 10-15-2016 End: 10-20-2016 Icd device interrogat remote Hans Logan MD Start: 10-15-2016 End: 06-11-2017 Pacer Clinic Hans Logan MD Start: 07-07-2016 End: 07-08-2016 Interrogation eval remote 90 d 1/2/herb digger ld cristela Logan MD Start: 07-07-2016 End: 06-11-2017 Follow Up Appt 3 months Rachell Chun Start: 07-07-2016 End: 07-08-2016 Icd device interrogat remote Hans Logan MD Start: 07-07-2016 End: 06-11-2017 Pacer Clinic Hans Logan MD Start: 07-02-2016 End: 06-11-2017 *Hepatic Function Panel Rachell Chun Start: 07-02-2016 End: 06-11-2017 Lipid panel [AGGREGATE] Rachell Chun Start: 06-03-2016 End: 06-03-2016 Dietary management education, guidance, and counseling Hans Logan MD Start: 06-03-2016 End: 06-03-2016 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 Soco Zapata PA-C Work Phone: Start: 06-03-2016 End: 06-03-2016 Follow Up Appt 6 months Soco Zapata PA-C Work Phone: Start: 06-03-2016 End: 06-03-2016 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 Soco Zapata PA-C Work Phone: Start: 06-03-2016 End: 06-03-2016 Follow Up Appt 6 months Soco Zapata PA-C Work Phone: Start: 04-09-2016 End: 05-19-2016 Follow Up Appt 3 months Rachell Chun Start: 04-09-2016 End: 04-19-2016 Interrogation eval remote 90 d 1/2/herb digger ld cristela Logan MD Start: 04-09-2016 End: 05-19-2016 Pacer Clinic Hans Logan MD Start: 04-09-2016 End: 05-19-2016 Follow Up Appt 3 months Rachell Chun Start: 04-09-2016 End: 04-19-2016 Icd device interrogat remote Hans Logan MD Start: 04-09-2016 End: 05-19-2016 Pacer Clinic Hans Logan MD Start: 01-02-2016 End: 05-19-2016 Follow Up Appt 3 months Rachell Chun Start: 01-02-2016 End: 01-02-2016 Interrogation eval remote 90 d 1/2/herb digger ld cristela Logan MD Start: 01-02-2016 End: 05-19-2016 Pacer Clinic Hans Logan MD Start: 01-02-2016 End: 05-19-2016 Follow Up Appt 3 months Rachell Chun Start: 01-02-2016 End: 01-02-2016 Icd device interrogat remote Hans Logan MD Start: 01-02-2016 End: 05-19-2016 Pacer Clinic Hans Logan MD Start: 2015 End: 01-02-2016 *Hepatic Function Panel Rachell Chun Start: 2015 End: 05-19-2016 Follow Up Appt 6 months Rachell Chun Start: 2015 End: 01-02-2016 Lipid 1996 panel - Serum or Plasma Hans Logan MD Start: 2015 End: 05-19-2016 MMM Hans Logan MD Start: 2015 End: 01-02-2016 *Hepatic Function Panel Rachell Chun Start: 2015 End: 05-19-2016 Follow Up Appt 6 months Rachell Chun Start: 2015 End: 01-02-2016 Lipid panel [AGGREGATE] Rachell Chun Start: 2015 End: 05-19-2016 MMM Hans Logan MD Start: 09-26-2015 End: 05-19-2016 Follow Up Appt 3 months Rachell Chun Start: 09-26-2015 End: 09-27-2015 Interrogation eval remote 90 d 1/2/herb digger ld dfb Hans Logan MD Start: 09-26-2015 End: 05-19-2016 Pacer Clinic Hans Logan MD Start: 09-26-2015 End: 05-19-2016 Follow Up Appt 3 months Rachell Chun Start: 09-26-2015 End: 09-27-2015 Icd device interrogat remote Hans Logan MD Start: 09-26-2015 End: 05-19-2016 Pacer Clinic Hans Logan MD Start: 06-06-2015 End: 06-06-2015 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 Soco Zapata PA-C Work Phone: Start: 06-06-2015 End: 06-07-2015 Documentation of current medications Soco Zapata PA-C Work Phone: Start: 06-06-2015 End: 05-19-2016 Follow Up Appt 3 months Rachell Chun Start: 06-06-2015 End: 06-06-2015 Follow Up Appt 6 months Soco Zapata PA-C Work Phone: Start: 06-06-2015 End: 05-19-2016 Pacer Clinic Hans Logan MD Start: 06-06-2015 End: 06-07-2015 Prgrmng dev eval implantable in persn 1 ld dfb Hans Logan MD Start: 06-06-2015 End: 06-06-2015 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 Soco Zapata PA-C Work Phone: Start: 06-06-2015 End: 06-07-2015 Documentation of current medications Soco Zapata PA-C Work Phone: Start: 06-06-2015 End: 05-19-2016 Follow Up Appt 3 months Rachell Chun Start: 06-06-2015 End: 06-06-2015 Follow Up Appt 6 months Soco Zapata PA-C Work Phone: Start: 06-06-2015 End: 06-07-2015 Icd device prog eval, 1 sngl Hans Logan MD Start: 06-06-2015 End: 05-19-2016 Pacer Clinic Hans Logan MD Start: 04-18-2015 End: 05-30-2015 Follow Up Appt 3 months Soco Zapata PA-C Work Phone: Start: 04-18-2015 End: 04-19-2015 Interrogation eval remote 90 d 1/2/herb digger ld dfb Soco Zapata PA-C Work Phone: Start: 04-18-2015 End: 05-30-2015 Pacer Clinic Soco Zapata PA-C Work Phone: Start: 04-18-2015 End: 05-30-2015 Follow Up Appt 3 months Soco Zapata PA-C Work Phone: Start: 04-18-2015 End: 04-19-2015 Icd device interrogat remote Soco Zapata PA-C Work Phone: Start: 04-18-2015 End: 05-30-2015 Pacer Clinic Soco Zapata PA-C Work Phone: Start: 01-30-2015 End: 05-30-2015 24 hour holter monitor Hans Logan MD Start: 01-30-2015 End: 05-30-2015 24 hour holter monitor Hans Logan MD Start: 01-25-2015 End: 05-30-2015 Follow Up Appt 3 months Soco Zapata PA-C Work Phone: Start: 01-25-2015 End: 05-30-2015 Pacer Clinic Soco Zapata PA-C Work Phone: Start: 01-25-2015 End: 01-25-2015 Program eval implantable in prsn 1 ld pacemaker Soco Zapata PA-C Work Phone: Start: 01-25-2015 End: 05-30-2015 Follow Up Appt 3 months Soco Zapata PA-C Work Phone: Start: 01-25-2015 End: 05-30-2015 Pacer Clinic Soco Zapata PA-C Work Phone: Start: 01-25-2015 End: 01-25-2015 Pm device progr eval, sngl Soco Zapata PA-C Work Phone: Start: 01-15-2015 End: 05-30-2015 Follow Up Appt 3 months Rachell Chun Start: 01-15-2015 End: 05-30-2015 Pacer Clinic Hans Logan MD Start: 01-15-2015 End: 01-16-2015 Prgrmng dev eval implantable in persn 1 ld dfb Hans Logan MD Start: 01-15-2015 End: 05-30-2015 Follow Up Appt 3 months Rachell Chun Start: 01-15-2015 End: 01-16-2015 Icd device prog eval, 1 sngl Hans Logan MD Start: 01-15-2015 End: 05-30-2015 Pacer Clinic Hans Logan MD Start: 12-07-2014 End: 12-07-2014 Follow Up Appt 6 months Rachell Chun Start: 12-07-2014 End: 12-07-2014 MATTHEW Logan MD Start: 12-07-2014 End: 12-07-2014 Follow Up Appt 6 months Rachell Chun Start: 12-07-2014 End: 12-07-2014 MATTHEW Logan MD Start: 10-15-2014 End: 10-16-2014 *Hepatic Function Panel Soco Zapata PA-C Work Phone: Start: 10-15-2014 End: 10-15-2014 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 Soco Zapata PA-C Work Phone: Start: 10-15-2014 End: 10-15-2014 Ecg routine ecg w/least 12 lds w/i&r Soco Zapata PA-C Work Phone: Start: 10-15-2014 End: 10-15-2014 Follow Up Appt 3 months Soco Zapata PA-C Work Phone: Start: 10-15-2014 End: 10-15-2014 Follow Up Appt 6 months Soco Zapata PA-C Work Phone: Start: 10-15-2014 End: 10-15-2014 Pacer Clinic Soco Zapata PA-C Work Phone: Start: 10-15-2014 End: 10-15-2014 Prgrmng dev eval implantable in persn 1 ld dfb Soco Zapata PA-C Work Phone: Start: 10-15-2014 End: 10-16-2014 *Hepatic Function Panel Soco Zapata PA-C Work Phone: Start: 10-15-2014 End: 10-15-2014 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 Soco Zapata PA-C Work Phone: Start: 10-15-2014 End: 10-15-2014 Electrocardiogram, complete Soco Zapata PA-C Work Phone: Start: 10-15-2014 End: 10-15-2014 Follow Up Appt 3 months Soco Zapata PA-C Work Phone: Start: 10-15-2014 End: 10-15-2014 Follow Up Appt 6 months Soco Zapata PA-C Work Phone: Start: 10-15-2014 End: 10-15-2014 Icd device prog eval, 1 sngl Soco Zapata PA-C Work Phone: Start: 10-15-2014 End: 10-15-2014 Pacer Clinic Soco Zapata PA-C Work Phone: Start: 06-11-2014 End: 10-03-2014 Follow Up Appt 3 months Soco Zapata PA-C Work Phone: Start: 06-11-2014 End: 06-11-2014 Interrogation eval remote 90 d 11/30/herb digger ld dfb Soco Zapata PA-C Work Phone: Start: 06-11-2014 End: 10-03-2014 Pacer [facility] Soco Zapata PA-C Work Phone: Start: 06-11-2014 End: 10-03-2014 Follow Up Appt 3 months Soco Zapata PA-C Work Phone: Start: 06-11-2014 End: 06-11-2014 Icd device interrogat remote Soco Zapata PA-C Work Phone: Start: 06-11-2014 End: 10-03-2014 Pacer [facility] Soco Zapata PA-C Work Phone: Start: 04-13-2014 End: 10-03-2014 Follow Up Appt 3 months Rachell Chun Start: 04-13-2014 End: 04-13-2014 Follow Up Appt 6 months Rachell Chun Start: 04-13-2014 End: 04-13-2014 MATTHEW Logan MD Start: 04-13-2014 End: 10-03-2014 Pacer Clinic Hans Logan MD Start: 04-13-2014 End: 04-16-2014 Prgrmng dev eval implantable in persn 1 ld dfb [place] S Doreen, MD Start: 04-13-2014 End: 10-03-2014 Follow Up Appt 3 months Rachell Chun Start: 04-13-2014 End: 04-13-2014 Follow Up Appt 6 months Rachell Chun Start: 04-13-2014 End: 04-16-2014 Icd device prog eval, 1 sngl Hans Logan MD Start: 04-13-2014 End: 04-13-2014 MMM Hans Logan MD Start: 04-13-2014 End: 10-03-2014 Pacer Clinic Hans Logan MD Start: 01-09-2014 End: 04-13-2014 Follow Up Appt 3 months Rachell Chun Start: 01-09-2014 End: 01-09-2014 Interrogation eval remote 90 d 1/2/herb digger ld cristela Logan MD Start: 01-09-2014 End: 04-13-2014 Pacer Clinic Hans Logan MD Start: 01-09-2014 End: 04-13-2014 Follow Up Appt 3 months Rachell Chun Start: 01-09-2014 End: 01-09-2014 Icd device interrogat remote Hans Logan MD Start: 01-09-2014 End: 04-13-2014 Pacer Clinic Hans Logan MD Start: 10-03-2013 End: 04-13-2014 Follow Up Appt 3 months Rachell Chun Start: 10-03-2013 End: 10-03-2013 Interrogation eval remote 90 d 1/2/herb digger ld cristela Logan MD Start: 10-03-2013 End: 04-13-2014 Pacer Clinic Hans Logan MD Start: 10-03-2013 End: 04-13-2014 Follow Up Appt 3 months Rachell Chun Start: 10-03-2013 End: 10-03-2013 Icd device interrogat remote Hans Logan MD Start: 10-03-2013 End: 04-13-2014 Pacer Clinic Hans Logan MD Start: 09-05-2013 End: 09-05-2013 JARAD Logan MD Start: 09-05-2013 End: 10-03-2014 Echocardiography Hans Logan MD Start: 09-05-2013 End: 09-05-2013 Follow Up Appt 6 months Rachell Chun Start: 09-05-2013 End: 09-05-2013 JARAD Logan MD Start: 09-05-2013 End: 10-03-2014 Echocardiography Hans Logan MD Start: 09-05-2013 End: 09-05-2013 Follow Up Appt 6 months Rachell Chun Start: 06-29-2013 End: 04-13-2014 Follow Up Appt 3 months Rachell Chun Start: 06-29-2013 End: 04-13-2014 Pacer Clinic Hans Logan MD Start: 06-29-2013 End: 06-29-2013 Prgrmng dev eval implantable in persn 1 ld cristela Logan MD Start: 06-29-2013 End: 04-13-2014 Follow Up Appt 3 months Racehll Chun Start: 06-29-2013 End: 06-29-2013 Icd device prog eval, 1 sngl Hans Logan MD Start: 06-29-2013 End: 04-13-2014 Pacer Clinic Hans Logan MD Start: 03-30-2013 End: 03-30-2013 Interrogation eval remote 90 d /2/herb digger ld dfb Hans Logan MD Start: 03-30-2013 End: 03-30-2013 Icd device interrogat remote Hans Logan MD Start: 03-07-2013 End: 03-07-2013 JARAD Logan MD Start: 03-07-2013 End: 03-07-2013 Follow Up Appt 6 months Rachell Chun Start: 03-07-2013 End: 03-07-2013 JARAD Logan MD Start: 03-07-2013 End: 03-07-2013 Follow Up Appt 6 months Rachell Chun Start: 08-24-2012 End: 08-24-2012 Follow Up Appt 6 months Rachell Chun Start: 08-24-2012 End: 08-24-2012 Follow Up Appt 6 months Rachell Chun Start: 08-04-2012 End: 04-13-2014 *Hepatic Function Panel Rachell Chun Start: 08-04-2012 End: 04-13-2014 Lipid 1996 panel - Serum or Plasma Hans Logan MD Start: 08-04-2012 End: 04-13-2014 *Hepatic Function Panel Rachell Chun Start: 08-04-2012 End: 04-13-2014 Lipid panel [AGGREGATE] Rachell Chun Start: 02-09-2012 End: 02-09-2012 Follow Up Appt 6 months Rachell Chun Start: 02-09-2012 End: 02-09-2012 Follow Up Appt 6 months Rachell Chun Start: 04-22-2011 Lipid 1996 panel - S nahomi or Plasma Nisha Weeks MD Work Phone: Start: 04-14-2011 Implantation of auto matic cardiac defibrillator IMPLANTATION OF DEFIBRILLATOR, HX OF Hans Logan MD Start: 09-09-2009 History of placement of stent for coronary artery disease History of coronary artery stent placement Dr. Bora Brush Work Phone: Comment on above: [id number]-[id number]-Distal L AD w. 2.5 x 30 mm Taylor Stent 09/09/2009 Start: 08-10-2008 Casper barrera Work Phone: Urine culture Dr. 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) Start: 03-20-2025 Covid-19 Vaccine () Covid-19 Vaccine () [facility] Start: 02-06-2025 End: 05-08-2025 CBC W Auto Differential panel - Blood COMPLETE BLOOD COUNT AND DIFFERENTIAL Lab Routine Amnestic MCI (mild cognitive impairment with memory loss) Expected: 02/06/2025, Expires: 05/08/2025 [facility] Work Phone: Comment on above: Expected: 02/06/2025 , Expires: 05/08/2025 Start: 02-06-2025 End: 05-08-2025 Cobalamin (Vitamin B12) [Mass/volume] in Serum or Plasma VITAMIN B12 Lab Routine Amnestic MCI (mild cognitive impairment with memory loss) Expected: 02/06/2025, Expires: 05/08/2025 [facility] Comment on above: Expected: 02/06/2025 , Expires: 05/08/2025 Start: 02-06-2025 End: 05-08-2025 Comprehensive metabolic 2000 panel - Serum or Plasma COMPREHENSIVE METABOLIC PANEL Lab Routine Amnestic MCI (mild cognitive impairment with memory loss) Expected: 02/06/2025, Expires: 05/08/2025 [facility] Comment on above: Expected: 02/06/2025 , Expires: 05/08/2025 Start: 02-06-2025 End: 05-08-2025 Methylmalonate [Moles/volume] in Serum or Plasma METHYLMALONIC ACID Lab Routine Amnestic MCI (mild cognitive impairment with memory loss) Expected: 02/06/2025, Expires: 05/08/2025 [facility] Comment on above: Expected: 02/06/2025 , Expires: 05/08/2025 Start: 02-06-2025 End: 05-08-2025 SYPHILIS TREPONEMAL W/REFLEX SYPHILIS TREPONEMAL W/REFLEX Lab Routine Amnestic MCI (mild cognitive impairment with memory loss) Expected: 02/06/2025, Expires: 05/08/2025 [facility] Comment on above: Expected: 02/06/2025 , Expires: 05/08/2025 Start: 02-06-2025 End: 05-08-2025 Thyrotropin [Units/volume] in Serum or Plasma THYROID STIMULATING HORMONE Lab Routine Amnestic MCI (mild cognitive impairment with memory loss) Expected: 02/06/2025, Expires: 05/08/2025 [facility] Comment on above: Expected: 02/06/2025 , Expires: 05/08/2025 Start: 02-06-2025 End: 05-08-2025 Thyroxine (T4) free [Mass/volume] in Serum or Plasma T4 FREE/FREE THYROXINE Lab Routine Amnestic MCI (mild cognitive impairment with memory loss) Expected: 02/06/2025, Expires: 05/08/2025 [facility] Comment on above: Expected: 02/06/2025 , Expires: 05/08/2025 Start: 02-06-2025 End: 02-06-2025 Patient encounter procedure 02/06/2025 1:00 PM EDT Office Visit Neurology [address] [place] [address] Nisha Weeks MD [address] [place] [address] STAT Referral for Dementia Neurology Comment on above: STAT Referral for De mentia Start: 11-29-2024 Advance Directive Discussion Advance Directive Discussion [facility] Start: 11-17-2024 [facility] Start: 11-17-2024 End: 11-17-2024 [facility] Start: 11-17-2024 Consultation [facility] Start: 11-16-2024 [facility] Start: 07-30-2024 Covid-19 Vaccine ( season) Covid-19 Vaccine ( season) [facility] Start: 07-30-2024 Influenza vaccination Influenza Vacc ine (#1) [facility] Start: 07-30-2021 Influenza vaccination INFLUENZ A (Season Ended) [facility] Start: 07-11-2021 Diabetes Screening Diabetes Screenin g [facility] Start: 08-10-2018 Screening for malign ant neoplasm of colon [facility] Start: 01-13-2018 End: 07-23-2017 *Hepatic Function Panel *Hepatic Function Panel [facility] Work Phone: Start: 01-13-2018 End: 07-23-2017 Lipid panel [AGGREGATE] *Lipid Profile CC PCP [facility] Work Phone: Start: 12-21-2017 End: 12-21-2017 Appointment Appointment [facility] Work Phone: Start: 2017 ADVANCE DIRECTIVE DISCUSSION ADVANCE DIRECTIVE DISCUSSION [facility] Start: 2017 PNEUMOVAX AGE 65 AND OVER WITH 5YR LOOKBACK (#1) PNEUMOVAX AGE 65 AND OVER WITH 5YR LOOKBACK (#1) [facility] Start: 11-15-2017 End: 11-15-2017 Appointment Appointment [facility] Work Phone: Start: 08-06-2017 End: 08-06-2017 Appointment Appointment [facility] Work Phone: Start: 08-06-2017 End: 08-11-2017 Follow Up Appt 3 months Follow Up Appt 3 months [facility] Work Phone: Start: 08-06-2017 End: 08-11-2017 [facility] Work Phone: Start: 06-22-2017 End: 06-22-2017 Appointment Appointment [facility] Work Phone: Start: 06-22-2017 End: 07-13-2017 *Hepatic Function Panel *Hepatic Function Panel [facility] Work Phone: Start: 06-22-2017 End: 06-22-2017 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 [facility] Work Phone: Start: 06-22-2017 End: 06-22-2017 Follow Up Appt 6 months Follow Up Appt 6 months [facility] Work Phone: Start: 06-22-2017 End: 07-13-2017 Lipid panel [AGGREGATE] *Lipid Profile CC PCP [facility] Work Phone: Start: 04-28-2017 End: 04-30-2017 Follow Up Appt 3 months Follow Up Appt 3 months [facility] Work Phone: Start: 04-28-2017 End: 04-30-2017 [facility]er [facility] Work Phone: Start: 04-28-2017 End: 06-11-2017 Follow Up Appt 3 months Follow Up Appt 3 months [facility] Work Phone: Start: 04-28-2017 End: 06-11-2017 Pacer Clinic Pacer Clinic [facility] Work Phone: Start: 01-18-2017 End: 01-18-2017 Follow Up Appt 3 months Follow Up Appt 3 months [facility] Work Phone: Start: 01-18-2017 End: 01-18-2017 Pacer Clinic Pacer Clinic [facility] Work Phone: Start: 01-18-2017 End: 06-11-2017 Follow Up Appt 3 months Follow Up Appt 3 months [facility] Work Phone: Start: 01-18-2017 End: 06-11-2017 Pacer Clinic Pacer Clinic [facility] Work Phone: Start: 12-15-2016 End: 12-15-2016 Follow Up Appt 6 months Follow Up Appt 6 months [facility] Work Phone: Start: 12-15-2016 End: 12-15-2016 MMM MMM [facility] Work Phone: Start: 12-15-2016 End: 12-15-2016 Follow Up Appt 6 months Follow Up Appt 6 months [facility] Work Phone: Start: 12-15-2016 End: 12-15-2016 MMM MMM [facility] Work Phone: Start: 10-15-2016 End: 10-20-2016 Follow Up Appt 3 months Follow Up Appt 3 months [facility] Work Phone: Start: 10-15-2016 End: 10-20-2016 Pacer Clinic Pacer Clinic [facility] Work Phone: Start: 10-15-2016 End: 06-11-2017 Follow Up Appt 3 months Follow Up Appt 3 months [facility] Work Phone: Start: 10-15-2016 End: 06-11-2017 Pacer Clinic Pacer Clinic [facility] Work Phone: Start: 07-07-2016 End: 07-08-2016 Follow Up Appt 3 months Follow Up Appt 3 months [facility] Work Phone: Start: 07-07-2016 End: 07-08-2016 Pacer Clinic Pacer Clinic [facility] Work Phone: Start: 07-07-2016 End: 06-11-2017 Follow Up Appt 3 months Follow Up Appt 3 months [facility] Work Phone: Start: 07-07-2016 End: 06-11-2017 Pacer [facility] Pacer Clinic [facility] Work Phone: Start: 07-02-2016 End: 01-02-2016 *Hepatic Function Panel *Hepatic Function Panel [facility] Work Phone: Start: 07-02-2016 End: 01-02-2016 Lipid panel [AGGREGATE] *Lipid Profile CC PCP [facility] Work Phone: Start: 07-02-2016 End: 06-11-2017 *Hepatic Function Panel *Hepatic Function Panel [facility] Work Phone: Start: 07-02-2016 End: 06-11-2017 Lipid panel [AGGREGATE] *Lipid Profile CC PCP [facility] Work Phone: Start: 06-03-2016 End: 06-03-2016 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 [facility] Work Phone: Start: 06-03-2016 End: 06-03-2016 Follow Up Appt 6 months Follow Up Appt 6 months [facility] Work Phone: Start: 06-03-2016 End: 06-03-2016 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 [facility] Work Phone: Start: 06-03-2016 End: 06-03-2016 Follow Up Appt 6 months Follow Up Appt 6 months [facility] Work Phone: Start: 05-02-2016 DIABETES SCREEN DIABETES SCREEN [facility] Start: 05-02-2016 Diabetes Screening Diabetes Screenin g [facility] Start: 04-30-2016 PROSTATE CANCER SCRE ENING DISCUSSION PROSTATE CANCER SCREENING DISCUSSION [facility] Start: 04-22-2016 Lipid panel Lipid Screening [facility] Start: 04-22-2016 LIPID SCREEN LIPID SCREEN [facility] Start: 04-09-2016 End: 05-19-2016 Follow Up Appt 3 months Follow Up Appt 3 months [facility] Work Phone: Start: 04-09-2016 End: 05-19-2016 [facility] Work Phone: Start: 04-09-2016 End: 05-19-2016 Follow Up Appt 3 months Follow Up Appt 3 months [facility] Work Phone: Start: 04-09-2016 End: 05-19-2016 [facility] Work Phone: Start: 01-02-2016 End: 05-19-2016 Follow Up Appt 3 months Follow Up Appt 3 months [facility] Work Phone: Start: 01-02-2016 End: 05-19-2016 [facility] Work Phone: Start: 01-02-2016 End: 05-19-2016 Follow Up Appt 3 months Follow Up Appt 3 months [facility] Work Phone: Start: 01-02-2016 End: 05-19-2016 [facility] Work Phone: Start: 2015 End: 01-02-2016 *Hepatic Function Panel *Hepatic Function Panel [facility] Work Phone: Start: 2015 End: 05-19-2016 Follow Up Appt 6 months Follow Up Appt 6 months [facility] Work Phone: Start: 2015 End: 01-02-2016 Lipid panel [AGGREGATE] *Lipid Profile CC PCP [facility] Work Phone: Start: 2015 End: 05-19-2016 MMM MMM [facility] Work Phone: Start: 2015 End: 01-02-2016 *Hepatic Function Panel *Hepatic Function Panel [facility] Work Phone: Start: 2015 End: 05-19-2016 Follow Up Appt 6 months Follow Up Appt 6 months [facility] Work Phone: Start: 2015 End: 01-02-2016 Lipid panel [AGGREGATE] *Lipid Profile CC PCP [facility] Work Phone: Start: 2015 End: 05-19-2016 MMM MMM [facility] Work Phone: Start: 09-26-2015 End: 05-19-2016 Follow Up Appt 3 months Follow Up Appt 3 months [facility] Work Phone: Start: 09-26-2015 End: 05-19-2016 Pacer Clinic Pacer Clinic [facility] Work Phone: Start: 09-26-2015 End: 05-19-2016 Follow Up Appt 3 months Follow Up Appt 3 months [facility] Work Phone: Start: 09-26-2015 End: 05-19-2016 Pacer Clinic Pacer Clinic [facility] Work Phone: Start: 06-06-2015 End: 06-06-2015 [facility] Work Phone: Start: 06-06-2015 End: 05-19-2016 Follow Up Appt 3 months Follow Up Appt 3 months [facility] Work Phone: Start: 06-06-2015 End: 06-06-2015 Follow Up Appt 6 months Follow Up Appt 6 months [facility] Work Phone: Start: 06-06-2015 End: 05-19-2016 Pacer Clinic Pacer Clinic [facility] Work Phone: Start: 06-06-2015 End: 06-06-2015 [facility] 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 [facility] Work Phone: Start: 06-06-2015 End: 05-19-2016 Follow Up Appt 3 months Follow Up Appt 3 months [facility] Work Phone: Start: 06-06-2015 End: 06-06-2015 Follow Up Appt 6 months Follow Up Appt 6 months [facility] Work Phone: Start: 06-06-2015 End: 05-19-2016 Pacer Clinic Pacer Clinic [facility] Work Phone: Start: 04-18-2015 End: 05-30-2015 Follow Up Appt 3 months Follow Up Appt 3 months [facility] Work Phone: Start: 04-18-2015 End: 05-30-2015 Pacer Clinic Pacer Clinic [facility] Work Phone: Start: 04-18-2015 End: 05-30-2015 Follow Up Appt 3 months Follow Up Appt 3 months [facility] Work Phone: Start: 04-18-2015 End: 05-30-2015 Pacer Clinic Pacer Clinic [facility] Work Phone: Start: 01-30-2015 End: 01-30-2015 24 hour holter monitor 24 hour holter monitor [facility] Work Phone: Start: 01-30-2015 End: 01-30-2015 24 hour holter monitor 24 hour holter monitor [facility] Work Phone: Start: 01-25-2015 End: 05-30-2015 Follow Up Appt 3 months Follow Up Appt 3 months [facility] Work Phone: Start: 01-25-2015 End: 05-30-2015 Pacer Clinic Pacer Clinic [facility] Work Phone: Start: 01-25-2015 End: 05-30-2015 Follow Up Appt 3 months Follow Up Appt 3 months [facility] Work Phone: Start: 01-25-2015 End: 05-30-2015 Pacer Clinic Pacer Clinic [facility] Work Phone: Start: 01-15-2015 End: 05-30-2015 Follow Up Appt 3 months Follow Up Appt 3 months [facility] Work Phone: Start: 01-15-2015 End: 05-30-2015 Pacer Clinic Pacer Clinic [facility] Work Phone: Start: 01-15-2015 End: 05-30-2015 Follow Up Appt 3 months Follow Up Appt 3 months [facility] Work Phone: Start: 01-15-2015 End: 05-30-2015 Pacer Clinic Pacer Clinic [facility] Work Phone: Start: 12-07-2014 End: 12-07-2014 Follow Up Appt 6 months Follow Up Appt 6 months [facility] Work Phone: Start: 12-07-2014 End: 12-07-2014 MMM MMM [facility] Work Phone: Start: 12-07-2014 End: 12-07-2014 Follow Up Appt 6 months Follow Up Appt 6 months [facility] Work Phone: Start: 12-07-2014 End: 12-07-2014 MMM MMM [facility] Work Phone: Start: 10-15-2014 End: 10-16-2014 *Hepatic Function Panel *Hepatic Function Panel [facility] Work Phone: Start: 10-15-2014 End: 10-15-2014 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 [facility] Work Phone: Start: 10-15-2014 End: 10-15-2014 Ecg routine ecg w/least 12 lds w/i&r EKG (In office) [facility] Work Phone: Start: 10-15-2014 End: 10-15-2014 Follow Up Appt 3 months Follow Up Appt 3 months [facility] Work Phone: Start: 10-15-2014 End: 10-15-2014 Follow Up Appt 6 months Follow Up Appt 6 months [facility] Work Phone: Start: 10-15-2014 End: 10-15-2014 Pacer Clinic Pacer Clinic [facility] Work Phone: Start: 10-15-2014 End: 10-16-2014 *Hepatic Function Panel *Hepatic Function Panel [facility] Work Phone: Start: 10-15-2014 End: 10-15-2014 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 [facility] Work Phone: Start: 10-15-2014 End: 10-15-2014 Electrocardiogram, complete EKG (In office) [facility] Work Phone: Start: 10-15-2014 End: 10-15-2014 Follow Up Appt 3 months Follow Up Appt 3 months [facility] Work Phone: Start: 10-15-2014 End: 10-15-2014 Follow Up Appt 6 months Follow Up Appt 6 months [facility] Work Phone: Start: 10-15-2014 End: 10-15-2014 Pacer Clinic Pacer Clinic [facility] Work Phone: Start: 06-11-2014 End: 10-03-2014 Follow Up Appt 3 months Follow Up Appt 3 months [facility] Work Phone: Start: 06-11-2014 End: 10-03-2014 Pacer Clinic Pacer Clinic [facility] Work Phone: Start: 06-11-2014 End: 10-03-2014 Follow Up Appt 3 months Follow Up Appt 3 months [facility] Work Phone: Start: 06-11-2014 End: 10-03-2014 Pacer Clinic Pacer Clinic [facility] Work Phone: Start: 04-13-2014 End: 10-03-2014 Follow Up Appt 3 months Follow Up Appt 3 months [facility] Work Phone: Start: 04-13-2014 End: 04-13-2014 Follow Up Appt 6 months Follow Up Appt 6 months [facility] Work Phone: Start: 04-13-2014 End: 04-13-2014 MMM MMM [facility] Work Phone: Start: 04-13-2014 End: 10-03-2014 Pacer Clinic Pacer Clinic [facility] Work Phone: Start: 04-13-2014 End: 10-03-2014 Follow Up Appt 3 months Follow Up Appt 3 months [facility] Work Phone: Start: 04-13-2014 End: 04-13-2014 Follow Up Appt 6 months Follow Up Appt 6 months [facility] Work Phone: Start: 04-13-2014 End: 04-13-2014 MMM MMM [facility] Work Phone: Start: 04-13-2014 End: 10-03-2014 Pacer Clinic Pacer Clinic [facility] Work Phone: Start: 01-09-2014 End: 04-13-2014 Follow Up Appt 3 months Follow Up Appt 3 months [facility] Work Phone: Start: 01-09-2014 End: 04-13-2014 Pacer Clinic [facility] Work Phone: Start: 01-09-2014 End: 04-13-2014 Follow Up Appt 3 months Follow Up Appt 3 months [facility] Work Phone: Start: 01-09-2014 End: 04-13-2014 Pacer Clinic [facility] Work Phone: Start: 10-03-2013 End: 04-13-2014 Follow Up Appt 3 months Follow Up Appt 3 months [facility] Work Phone: Start: 10-03-2013 End: 04-13-2014 Pacer Clinic [facility] Work Phone: Start: 10-03-2013 End: 04-13-2014 Follow Up Appt 3 months Follow Up Appt 3 months [facility] Work Phone: Start: 10-03-2013 End: 04-13-2014 Pacer Clinic [facility] Work Phone: Start: 09-05-2013 End: 09-05-2013 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 [facility] Work Phone: Start: 09-05-2013 End: 09-06-2013 Echocardiography Echocardiogram (complete) [facility] Work Phone: Start: 09-05-2013 End: 09-05-2013 Follow Up Appt 6 months Follow Up Appt 6 months [facility] Work Phone: Start: 09-05-2013 End: 09-05-2013 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 [facility] Work Phone: Start: 09-05-2013 End: 09-06-2013 Echocardiography Echocardiogram (complete) [facility] Work Phone: Start: 09-05-2013 End: 09-05-2013 Follow Up Appt 6 months Follow Up Appt 6 months [facility] Work Phone: Start: 06-29-2013 End: 04-13-2014 Follow Up Appt 3 months Follow Up Appt 3 months [facility] Work Phone: Start: 06-29-2013 End: 04-13-2014 Pacer Clinic [facility] Work Phone: Start: 06-29-2013 End: 04-13-2014 Follow Up Appt 3 months Follow Up Appt 3 months [facility] Work Phone: Start: 06-29-2013 End: 04-13-2014 Pacer Clinic [facility] Work Phone: Start: 03-07-2013 End: 03-07-2013 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 [facility] Work Phone: Start: 03-07-2013 End: 03-07-2013 Follow Up Appt 6 months Follow Up Appt 6 months [facility] Work Phone: Start: 03-07-2013 End: 03-07-2013 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 [facility] Work Phone: Start: 03-07-2013 End: 03-07-2013 Follow Up Appt 6 months Follow Up Appt 6 months [facility] Work Phone: Start: 2012 RSV Vaccine (1 - Ris k 60-74 years 1-dose series) RSV Vaccine (1 - Risk 60-74 years 1-dose series) [facility] Start: 08-24-2012 End: 08-24-2012 Follow Up Appt 6 months Follow Up Appt 6 months [facility] Work Phone: Start: 08-24-2012 End: 08-24-2012 Follow Up Appt 6 months Follow Up Appt 6 months [facility] Work Phone: Start: 08-04-2012 End: 04-13-2014 *Hepatic Function Panel *Hepatic Function Panel [facility] Work Phone: Start: 08-04-2012 End: 04-13-2014 Lipid panel [AGGREGATE] *Lipid Profile [facility] Work Phone: Start: 08-04-2012 End: 04-13-2014 *Hepatic Function Panel *Hepatic Function Panel [facility] Work Phone: Start: 08-04-2012 End: 04-13-2014 Lipid panel [AGGREGATE] *Lipid Profile [facility] Work Phone: Start: 04-22-2012 Hepatitis B surface antibody level LDL Cholesterol [facility] Start: 02-09-2012 End: 02-09-2012 Follow Up Appt 6 months Follow Up Appt 6 months [facility] Work Phone: Start: 02-09-2012 End: 02-09-2012 Follow Up Appt 6 months Follow Up Appt 6 months [facility] Work Phone: Start: 2002 Screening for malign ant neoplasm of colon [facility] Start: 2002 SHINGRIX VACCINE (1 of 2) YUSUF GRIX VACCINE (1 of 2) [facility] Start: 1997 Screening for malign ant neoplasm of colon [facility] Start: 1971 Pneumococcal Vaccine : 50+ (1 of 2 - PCV) Pneumococcal Vaccine: 50+ (1 of 2 - PCV) [facility] Start: 1971 Urine microalbumin profile [facility] Start: 1970 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 assessment DEPRESSION SCREENING [facility] Start: 1964 COVID-19 VACCINE (1) COVID-19 VACCIN E (1) [facility] Start: 1952 ABDOMINAL AORTIC ANE URYSM SCREENING ABDOMINAL AORTIC ANEURYSM SCREENING [facility] Start: 1952 Abdominal aortic ane urysm screening Abdominal Aortic Aneurysm Screening [facility] Patient Education [facility] Work Phone: [facility] Work Phone: Procedure [facility] Radionuclide imaging of perfusion of myocardium under exercise stress [facility] Work Phone: Immunizations Immunization Date Immunization Notes Care Provider Fa agustina 07-30-[address] Bora Brush Work Phone: [facility] 07-30-[address] Lit Brush Work Phone: [facility] Work Phone: 07-30-2010 pneumococcal vaccine , unspecified formulation Dr. Bora Brush Work Phone: [facility] Payers Date Payer Category Payer Self-pay [id number] 2021 Private Health Insurance [employer] MED ICARE SUPPLEMENT [id number] 2018 Unknown [id number] 2018 Medicare MEDICARE [id number] 2018 Medicare [id number] 2003 Private Health Insurance [facility] OPTIONS PPO [id number] 2003-2004 PPO [id number] 1952 Unknown [id number] 1952 Unknown [id number] 594 Unknown [id number] Unknown [id number] 462 Unknown [id number] 462 Unknown [id number] 462 Unknown [id number] 462 Unknown [id number] 462 Unknown [id number]. 462 Unknown [id number] 462 Unknown [id number]. 462 Unknown [id number]. 462 Unknown [id number] 462 Unknown [id number]. 462 Unknown [id number] 462 Social History Date Type Detail Facility Start: 11-08-2001 [facility] End: 08-30-2011 History of tobacco use Cigar Smoker [facility] Start: 11-08-2001 End: 02-06-2025 Alcohol intake Current non-drinker of alcohol (finding) [facility] Start: 1950 Sex Assigned At Not on file [facility] Start: 12-18-2021 End: 12-22-2022 Tobacco smoking status NDIS Unknown if ever smoked [facility] Start: 05-14-2021 None [facility] Start: 05-14-2021 Alone [facility] Start: 05-14-2021 Cigars [facility] Start: 1950 Sex Assigned At Male [facility] Start: 10-01-2011 End: 05-01-2025 Tobacco smoking status NHIS Ex-smoker [facility] Work Phone: End: 08-30-2011 History of tobacco use Current smoker [facility] Start: 10-01-2011 End: 02-06-2025 Tobacco use and exposure Smokeless tobacco non-user [facility] Start: 01-31-2025 End: 02-06-2025 History of Social function [facility] Start: 01-31-2025 End: 02-06-2025 Area Deprivation Index [facility] National Score (1-10 0), lower number is lower risk 60 [facility] Start: 03-06-2011 End: 02-06-2025 Tobacco Comment cigar 2 a day [facility] Start: 03-06-2011 Alcohol Comment prior alcoholi sm, Last Drink 14 years ago [facility] Start: 02-19-2025 Sex Male (finding) [facility] Medical Equipment Procedure Code Equipment Code Equipment Original Text Equipment Identifier Dates ([id number]) Cardiac resynchr onization therapy implantable defibrillator [id number] ([id number] FDA Start: 12-18-2021 [id number] Prot ecta Xt [id number] Start: 05-11-2013 Abandoned pacer leads FDA Sta rt: 07-09-2003 Abandoned pacer leads FDA Sta rt: 07-09-2003 Mental Status Date Assessment Result Facility 11-16-2024 Cognitive function Awake;Alert;A ppropriate;Fol lows Commands [facility] Work Phone: Clinical Notes 07-10-2003 to 05-01-2025 Note Date & Type Note Facility 05-01-2025 Evaluation note Diagnosis Onset Date Resolution Memory change chronic May 01 2:15pm Anxiety noneactive May 02, 2025 12:43pm [facility] Work Phone: [phone]) 861-446303-14-2025 Telephone encounter Note* Telephone Encounter - Mingo Euceda - 02/09/2025 10:49 AM EDTSummary: appointment tried calling patient to inform patient that we need to reschedule appointment with dr weeks seeing as the provider will not be avaliable vm was full so i sent my chart and appointment reminder [facility]03-14-2025 Miscellaneous Notes* Telephone Encounter - Mingo Euceda - 02/09/2025 10:49 AM EDTSummary: appointment tried calling patient to inform patient that we need to reschedule appointment with dr weeks seeing as the provider will not be avaliable vm was full so i sent my chart and appointment reminder [facility] History of Present illness Narrative* Nisha Weeks MD - 02/06/2025 1:00 PM EDT Images from the original note were not included. [facility] New Patient Evaluation Date: February 05, 2025 Patient Name: Nicol Oneill The [facility] was asked by Dr. Brush to evaluate Nicol Oneill. Our recommendations of care will be communicated by shared medical record. Reason for Evaluation/Chief complaint: cognitive change Accompanied by: self SUBJECTIVE: HPI: Nicol Oneill is a 74 year old Left handed male who presents to the [facility] for an initial evaluation. Patient has been seen and referred by Dr. Isabel Brush. Patient has a pertinent PMHx significant for HTN and HLD, BPH , systolic heart failure, peripheral vascular disease, Pt was seen by his PCP on 01/26/25 reproting that he had covid 3 mo prior (was hospitalized) and that it has done something to his head. He felt overwhlemed, like his life was crashing down. 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 Mirtazapine 15 mg nightly started. PCP note had dx of memory change, dementia, and anxiety. Pt was started on donepezil 01/03/25 by PCP - associated note from that visit notfound (pt likely never started it). No cognitive screening found in notes. Today, pt states he first started noticing changes 4-5 weeks ago (prior to that he had noticed mildworsening in recall/memory, names of people he hadnt seen in a while). Pt stated he started thinkigstrange things, doing strange things.he als had, for a few mo beforehand that he was started to experience anxiety and had started talking to his PCP about it. Some peple who knew him started noticing things too. 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 Pt is not sure if he should keep taking mirtazapine. He only took it for 4 days only due to feelingstrange. He was not feeling confused but he felt like he had brain fog from it. His understanding is that mirtazapine as for nervousness.pt feels anxiety was exacerbated after he noticed memory lapses. He did not start mirtazapine until 4 day ago and it has caused slight daytime tiredness. Pt clarified from the questionnaire that he does not actually selep 3 hours a day in the daytime. This only happens once eery 2 weeks.. Recent memory issues have not caused any issues wit his volutneer work. He has stopped volunteeringthe past few weeks as it was harder to keep up with what was going on both mentally and physically.He was going weekly previously. Short-term Memory: Repeats questions/statements: NO Misplacing items around the house: YES Difficulty remembering details of recent conversations within a few hours: YES Difficulty remembering names of familiar people (not family or friends): YES - has been going on for a few years; the information generally does not come back to him Missed some appointments or major events due to memory changes: NO Long-term Memory: Difficulty remembering significant past events? NO Semantic Memory: Difficulty remembering major news events or events in history? NO Orientation/Visuospatial: Getting lost when going to familiar places? NO Difficulty remembering days of the week, month? NO - very rarely Language: Word-finding difficulty: YES - more and more often; noted throughout conversation with circumlocutions, frequent use of filler words and word finding difficulties. Fluency: NO Difficulty understanding conversations: NO Difficulty with reading or writing: NO Difficulty with reading comprehension: NO Executive functions: Able to count money/ balance checkbook? NO Appropriate judgement in social situations? NO Able to react to minor emergencies? NO Gait: Any difficulties with gait or balance? NO Any falls? NO Parkinsonism: Tremor/Bradykinesia/Rigidity/Freezing: None Cognitive fluctuations: Appears lethargic during the day despite getting enough sleep the night before? YES (only when he started trying several different psychiatric medications) Tend to stare off into space for periods of time? NO Flow of ideas appear disorganized or illogical at times? NO Other: Mood: anxiety Neurobehavioral symptoms: normal Sleep: normal - naps in the day but only since starting mirtazapine REVIEW OF SYSTEMS: REVIEW OF SYSTEMS GENERAL: No weight loss, malaise or fevers PSYCH: Positive for anxiety: worry, feeling tense ENDOCRINE: Negative for cold or heat intolerance, polyuria, polydipsia and goiter OUTPATIENT MEDICATIONS Current Outpatient Medications on File Prior to Visit Medication Sig diazepam (VALIUM) 2 mg tablet Take 1 tablet by mouth twice daily. 4.5mg BID eszopiclone (LUNESTA) 3 mg ORAL Tab Take 1 tablet by mouth daily at bedtime. metoprolol succinate XL, long acting, 25 mg ORAL 24 hr tablet Take by mouth. take one tab in AM andone tab in PM aspirin 325 mg ORAL tablet Take 1 tablet by mouth once daily. atorvastatin calcium(LIPITOR 20 MG TAB) Take one(1) tablet daily. clopidogrel bisulfate(PLAVIX 75 MG TAB) Take one(1) tablet daily. No current facility-administered medications on file prior to visit. MEDICAL HISTORY PAST MEDICAL HISTORY Diagnosis Date Acute myocardial infarction, unspecified site age 42 Allergic rhinitis, cause unspecified Allergy, airborne subst Anxiety state, unspecified age 40s after arryhthmia (very traumatic hospitalization) Coronary atherosclerosis Coronary artery disease Herpes zoster without mention of complication 2006 seen by Berny Fernandez, no pain post Mixed hyperlipidemia after PA Hyperlipidemia Paroxysmal ventricular tachycardia (HCC) age 42 ICD implanted; + EPS Personal history of alcoholism (HCC) after parents' passing, age 32s sober since 1995 Unspecified essential hypertension Essential hypertension No hx of head injury with LOS, stroke, or seizure. SURGICAL HISTORY PAST SURGICAL HISTORY Procedure Laterality Date ANES TRANSVENOUS INSJ/REPLACEMENT PACING CVDFB 1992, 1995 x2 1995([employer] [place] [id number]) ANGIOPLASTY age 42 NO STENT COLONOSCOPY FLX DX W/COLLJ SPEC WHEN PFRMD 08/10/2008 Colonoscopy LEFT HEART CATH,PERCUTANEOUS 09/09/2009 Cardiac cath, L heart with stent PSYCH HISTORY - had previously tried several SSRIs , years ago (around 10 years) when he had heart problems. - citalopram insomnia (recent); escitalopram worse anxiety (recent, prozac loss of motivation (years ago), zoloft irritable (years ago), buspirone confusion - previously saw a psychiatrist around 10 years ago; who primarily helped him get off medications. 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 He retired in 2019. 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 3 weeks ago he went back into work thinking it was time to do the training again. . - Pt has a history of alcohol use, stopped in 1994. He attends [employer] which is a good support to him. - no living relatives; parents and sister have passed. He has support with his neighbors. He volunteers at [employer] and [employer] . He used to drink to intoxication daily and did this for around 8-9 years. - Education: associates degree, 14 years - lives alone, but has good social support with friends. He is very close with his colleges from work, volunteering - not , no children - Advanced directives/POA: yes advanced directive FAMILY HISTORY FAMILY HISTORY Problem Relation Age of Onset Ischemic Heart Disease Mother Cancer Mother lung (smoker, heavy) Anxiety disorder Mother Depression Mother Ischemic Heart Disease Father Alcohol abuse Father Ischemic Heart Disease Maternal Grandfather Ischemic Heart Disease Paternal Grandfather Colon Cancer Other none Diabetes Other none No known family history of dementia, late life personality changes, parkinson's disease ALLERGIES ALLERGIES Allergen Reactions Ciprofloxacin Intolerance lethargic, generalized body aches, nausea and diarrhea Flagyl [Metronidazo* Other: See Comments lethargic, generalized body aches, nausea and diarrhea Mycins? [Other] Sensitivities: citalopram insomnia; escitalopram worse anxiety, prozac loss of motivation, zoloft irritable, buspirone confusion, flomax fatigue OUTSIDE RECORDS: The patient provided outside medical records, which are scanned into the chart and which were reviewed during the visit. The relevant details are summarized in this note. INTERNAL RECORDS: The patient's electronic medical record was reviewed. The relevant details are summarized in this note. Functional Evaluation: B-ADLs: (I=independent,A=assistance,D=dependent) ?Bathing: I , Dressing: I , Toileting: I , Transferring: I , Continence: I , Feeding: I I-ADLs: Transportation: I (no accidents), Medications: I (but may benefit from assistance) , Handle Finances: I Functional Activities Questionnaire Based on informant to rate patient s ability using the following scoring system: Dependent = 3 Requires assistance = 2 Has difficulty but does by self = 1 Normal = 0 Never did [the activity] but could do now = 0 Never did and would have difficulty now = 1 1. Writing checks, paying bills, balancing checkbook 0 2. Assembling tax records, business affairs, or papers 0 3. Shopping alone for clothes, household necessities, or groceries 0 4. Playing a game of skill, working on a hobby 1 5. Heating water, making a cup of coffee, turning off stove after use0 6. Preparing a balanced meal 1 7. Keeping track of current events 0 8. Paying attention to, understanding, discussing TV, book, magazine 0 9. Remembering appointments, family occasions, holidays, medications 0 10. Traveling out of neighborhood, driving, arranging to take buses 0 TOTAL SCORE: 2 OBJECTIVE: Stef Cognitive Assessment (MoCA) Version 7.1 Total Score: 16/30 Visuospatial/Executive Alternating Archie Making: Patient is unable to successfully complete the task. (0) Visuoconstructional Skills (Shape): Patient is unable to successfully complete the task. (0) Visuoconstructional Skills (Clock): Normal Visuospatial/Executive Score: 3/5 Naming The patient was able to name: Lion, Rhinoceros or Rhino, Camel or Dromedary Naming Score: 3/3 Memory Trials Memory Trial (1): The patient was able to correctly register: 5 Memory Trial (2): The patient was able to correctly register: 3/5 Attention Forward Digit Span: Correct (+1) Backward Digit Span: Incorrect (0) Vigilance: Correct (+1) Attention - Serial 7's: (1) Correct subtraction (+1) Attention Score: 3/6 Language Sentence Repetition (1): Incorrect (0) Sentence Repetition (2): Incorrect (0) Verbal Fluency: Patient produced 14 words. (+1) Language Score: 1/3 Abstraction Abstraction (1): Patient successfully related similarity. (+1) Abstraction (2): Patient unable to relate similarity. (0) Abstraction Score: 1/2 Delayed Recall Word 1: Unable to recall (0) Word 2: Unable to recall (0) Word 3: Unable to recall (0) Word 4: Unable to recall (0) Word 5: Unable to recall (0) Delayed Recall Score: 0/5 MIS Scoring Number of words recalled spontaneously: 0 x3: 0 Number of words recalled with a category cue: 0 x2: 0 Number of words recalled with a category cue: 0 x1: 0 Total MIS: 0/15 Orientation The patient was able to answer correctly: month, year, day of the week, exact place (name of hospital, clinic, office), city. Orientation Score: 5/6 Education less than or equal to 12th grade: +0 Semantic Fluency Patient produced 8 words. MoCA Past Scores 02/06/2025 MoCA MOCA TOTAL SCORE 16 out of 30 Visuospatial/ Executive 3 Naming 3 Attention 3 Language 1 Abstraction 1 Delayed Recall 0 Orientation 5 Education Level 0 PHYSICAL EXAM: Vitals: BP 111/73 Pulse 68 Wt 77.5 kg (170 lb 14.4 oz) General appearance: Sitting upright. Appears stated age. No acute distress. Non- toxic appearing. Nohypomimia. Neurological Exam Mental Status Behavior: answers questions easily, provides logical chronology to his history for the most part, bar difficulties with word finding, circumlocutions Facial expression: appropriate Speech/Language: circumlocutions and frequent use of filler words without phenomic paraphasias Affect: pleasant Thought Process: logical Thought Content: appropriate Insight: good Knowledge: present and past events -fair Luria 3-step task: 3 cycles w/ prompting/modelling Bilateral Cranial Nerves EOMI CN VII: Face symmetric, no ptosis or facial droop CN VIII: Auditory acuity intact CN IX/CN X: Normal palate elevation CN XI: Normal shoulder shrug CN XII: Normal tongue strength and range of motion; no deviation Motor Examination and Coordination No cog-wheeling. No rest tremor. No significant postural tremor; mild intention tremor. No bradykinesia with finger tapping bilaterally. Normal rapid alternating movements and coordination. No dysmetria on finger to nose testing. No abnormal movements, jerks. Strength 5/5 in UE's bilaterally. LE's 5/5 throughout. No drift. Reflexes Deep tendon reflexes graded by MRC Sensation Intact to light touch in all extremities. Pinprick, vibration, and proprioception not assessed. Gait Arises easily. Casual gait, and Romberg are normal. Can rise on heels and toes. Normal arm swing. Step Height: normal Gait deviation: Narrow Base of Support NEUROPSYCHOLOGY: none IMAGING REVIEW: Most recent MRI/CT brain: MRI Report - Impression Only MRI BRAIN WO IVCON Exam End: 11/02/2024 2:10 PM (Final result) Impression: IMPRESSION: Diffuse brain volume loss, which is disproportionately severe in the medial temporal lobes and hippocampi. This can be seen with Alzheimer's disease in the appropriate clinical setting. 11/02/24 MRI Brain (images not available): Diffuse brain volume loss, which is disproportionately severe in the medial temporal lobes and hippocampi. This can be seen with Alzheimer's disease in the appropriate clinical setting..prominence of ventricles and sulci is compatible with generalized brain parenchymal volume loss. There is disproportionately severe volume loss of the medial temporal lobe s and hippocampi, with ex vacuo dilation of the temporal horns... mild scattered FLAIR hyperintensity in the periventricular and subcortical white matter LABS No results found for: CMPNOTE, CBCNOTE TSH (uU/mL) Date Value 04/24/2011 3.170 Hemoglobin A1C (%) Date Value 04/22/2011 5.4 Plan ASSESSMENT: Mr. Oneill is a 74 year old MALE who presented with memory loss that has become prominent in the past few weeks/months. His history is significant for cardiovascular risk factors, prior PA, VT (ICDplaced). Psych hx significant first history of alcohol abuse for about 9 years (sober since 1994); psychiatric tx around his early 60s iso PA, cardiac issues, after which his sx went into remission without psychotropic medications, until the past few weeks/months when anxiety became significant again. Social history significant for associates degree; retired in 2019; pt living alone without any living family. He does have a good social [place] and goes out daily, and was volunteering until recently when he had more trouble with his cognition. He noted primarily difficulties with recall and word finding, on interview. Brief cognitive testing revealed deficits in visuospatial skills, keeping track of when events have happened, retrieval of memories and words, language, and anxiety. Independant with ADL's and IADL's . Brain MRI in Oct 2024 (report only) noted atrophy in temporal lobes and hippocampi, pattern usually seen in AD and largely consistent with his symptoms. He reproted that hissx became significantly worse after being hospitalized with COVID - it is possible that the bout ofacute illness exacerbated/accelerated underlying neurodegeneration. 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 - SW consult for psychiatric resources locally, planning for the future - Strongly recommend psychiatric follow up. Pt lives far from our location, so finding a local provider who can follow up with him more regularly would be ideal, given the severity of symptoms, and taking into account that pt lives alone and does not have a caregiver. - Driving assessment recommended - referral placed. Discussed concerns safety with driving, given signs of visuospatial impairment on MoCA - continue mirtazapine 15 mg nightly: pt has taken it for 4 days (delayed starting after his PCP prescribed it) and has not noticed any adverse effects. While not first line, he has had adverse effects to multiple SSRIs. Effexor/Pristiq could be considered if not effective. - prioritize psychiatric medication first, given pt's overall hesitancy about medications. After this is better managed, donepezil (if EKG ok, no cardiac concerns) would be appropriate. We will discuss this further next visit. -Follow up in 3 months I spent a total of 60 minutes on the date of the service which included preparing to see the patient, [id number] patient care, completing clinical documentation, obtaining and/or reviewing separately obtained history, performing a medically appropriate examination, counseling and educating the pat ient/family/caregiver, and ordering medications, tests, or procedures. Nisha Weeks MD [facility] CC: Referring Physician: Isabel Brush ([facility]) [address] [facility] [address] PCP: Isabel Brush ([facility]) [address] [facility] [place] [place] [address] Patient Entered Data: Patient-Reported 02/03/2025 -- Where are you currently living? Home / Private residence Are you using any community resources to help care for yourself? No Has your caregiver accompanied you today? No Did you receive help completing this questionnaire? No If you received help, could you have completed this questionnaire on your own? Yes Activities of Daily Living (ADL) No data to display PROMIS-10 02/03/2025 PROMIS 10 Health, in general Fair Quality of life, in general Good Physical health, in general Fair Mental health, in general Good Social activities satisfaction Fair Performing ADL's Mostly Social role satisfaction Good Pain, on average 2 Fatigue, on average Moderate Emotional problems Sometimes PHYSICAL Score 42.3 (Good) MENTAL Score 41.1 (Good) PHQ-9 02/03/2025 PHQ-9 All Questions Little interest or pleasure in doing things: 1 Feeling down, depressed, or hopeless: 0 Trouble falling or staying asleep, or sleeping too much 0 Feeling tired or having little energy 1 Poor appetite or overeating 0 Feeling bad about yourself - or that you are a failure or have let yourself or your family down 0 Trouble concentrating on things, such as reading the newspaper or watching television 0 Moving or speaking so slowly that other people could have noticed. Or the opposite - being so fidgety or restless that you have been moving around a lot more than usual 0 Thoughts that you would be better off , or of hurting yourself in some way 0 PHQ-9 Score 2 (0-4) minimal depression (5-9) mild depression (10-14) moderate depression (15-19) moderately severe depression (20-27) severe depression Full History of PHQ-9 Scores PHQ-9 Score 02/03/2025 2 Sleep 02/03/2025 -- What is your average total sleep time per night over the past 4 weeks? 7 Hours What is your average total sleep time during the day over the past 4 weeks? 3 Hours Have you been diagnosed with sleep apnea? No Snore Loudly No Tired, fatigued or sleepy in daytime No Stop breathing or choking/gasping during sleep No High blood pressure Yes Probability of moderate-severe sleep apnea (%) SAPS V2 59 (Recommend sleep study) 02/03/2025 Insomnia Severity Index Difficulty falling asleep 0 Difficulty staying asleep 0 Problem waking up too early 0 Satisfied/dissatisfied with current sleep pattern 1 Sleep interferes with daily functions 1 Sleep problems noticeable to others 0 Worried/distressed about current sleep problems 1 Score 3 Caregiver-Reported No data to display Dementia Severity Rating Scale (DSRS) No data to display * Justine Soto OCCA - 02/06/2025 11:35 AM EDT Nicol Oneill is a 74 year old year old left handed man Accompanied by: patient. 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 Medications Vital Signs: BP 111/73 Pulse 68 Wt 77.5 kg (170 lb 14.4 oz) [facility] NoteHNO ID: [id number] Author: NISHA WEEKS MD Service: ? Author Type: Physician Type: Progress Notes Filed: 02/07/2025 16:53 Note Text: [facility] New Patient Evaluation Date: February 05, 2025 Patient Name: Nicol Oneill The [facility] was asked by Dr. Brush to evaluate Nicol Oneill. Our recommendations of care will be communicated by shared medical record. Reason for Evaluation/Chief complaint: cognitive change Accompanied by: self SUBJECTIVE: HPI: Nicol Oneill is a 74 year old Left handed male who [facility]. Patient has been seen and referred by Dr. Isabel Brush. Patient has a pertinent PMHx significant for HTN and HLD, BPH , systolic heart failure, peripheral vascular disease, Pt was seen by his PCP on 01/26/25 reproting that he had covid 3 mo prior (was hospitalized) and that it has done something to his head. He felt overwhlemed, like his life was crashing down. 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 Mirtazapine 15 mg nightly started. PCP note had dx of memory change, dementia, and anxiety. Pt was started on donepezil 01/03/25 by PCP - associated note from that visit not found (pt likely never started it). No cognitive screening found in notes. Today, pt states he first started noticing changes 4-5 weeks ago (prior to that he had noticed mild worsening in recall/memory, names of people he hadnt seen in a while). Pt stated he started thinkig strange things, doing strange things.he als had, for a few mo beforehand that he was started to experience anxiety and had started talking to his PCP about it. Some peple who knew him started noticing things too. 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 Pt is not sure if he should keep taking mirtazapine. He only took it for 4 days only due to feeling strange. He was not feeling confused but he felt like he had brain fog from it. His understanding is that mirtazapine as for nervousness.pt feels anxiety was exacerbated after he noticed memory lapses. He did not start mirtazapine until 4 day ago and it has caused slight daytime tiredness. Pt clarified from the questionnaire that he does not actually selep 3 hours a day in the daytime. This only happens once eery 2 weeks.. Recent memory issues have not caused any issues wit his volutneer work. He has stopped volunteering the past few weeks as it was harder to keep up with what was going on both mentally and physically. He was going weekly previously. Short-term Memory: Repeats questions/statements: NO Misplacing items around the house: YES Difficulty remembering details of recent conversations within a few hours: YES Difficulty remembering names of familiar people (not family or friends): YES - has been going on for a few years; the information generally does not come back to him Missed some appointments or major events due to memory changes: NO Long-term Memory: Difficulty remembering significant past events? NO Semantic Memory: Difficulty remembering major news events or events in history? NO Orientation/Visuospatial: Getting lost when going to familiar places? NO Difficulty remembering days of the week, month? NO - very rarely Language: Word-finding difficulty: YES - more and more often; noted throughout conversation with circumlocutions, frequent use of filler words and word finding difficulties. Fluency: NO Difficulty understanding conversations: NO Difficulty with reading or writing: NO Difficulty with reading comprehension: NO Executive functions: Able to count money/ balance checkbook? NO Appropriate judgement in social situations? NO Able to react to minor emergencies? NO Gait: Any difficulties with gait or balance? NO Any falls? NO Parkinsonism: Tremor/Bradykinesia/Rigidity/Freezing: None Cognitive fluctuations: Appears lethargic during the day despite getting enough sleep the night before? YES (only when he started trying several different psychiatric medications) Tend to stare off into space for periods of time? NO Flow of ideas appear disorganized or illogical at times? NO Other: Mood: anxiety Neurobehavioral symptoms: normal Sleep: normal - naps in the day but only since starting mirtazapine REVIEW OF SYSTEMS: REVIEW OF SYSTEMS GENERAL: No weight loss, malaise or fevers PSYCH: Positive for anxiety: worry, feeling tense ENDOCRINE: Negative for cold or heat intolerance, polyuria, polydipsia and goiter OUTPATIENT MEDICATIONS Current Outpatient Medications on File Prior to Visit Medication Sig diazepam (VALIUM) 2 mg tablet Take 1 (more content not included)...[place] [id number] Instructions* Patient Instructions* Nisha Weeks MD - 02/06/2025 12:47 PM EDT Today we discussed that the memory problems you are having may be caused by Alzheimer's Disease. Wediscussed the diagnosis of Mild Cognitive Impairment. We discussed getting the following testing done: - labwork (get this done with your primary care doctor) - Social work consult - A member of our staff will provide instructions on how to bring us CDs of your Brain MRI - Driving assessment is recommended. - Keep taking mirtazapine 15 mg nightly, which was prescribed by your primary care provider. I recommend you follow up with a psychiatrist locally. Main side effects include weight gain and tiredness. - Donepezil was prescribed by your primary care provider for memory. This is generally appropriate,but we can consider restarting it after your anxiety improves. --- What is mild cognitive impairment? Mild cognitive impairment (MCI) is a brain disorder that causes trouble with memory or thinking. The word cognitive has to do with memory and thinking. The word impairment means having trouble doing something. It is normal for adults to have slight memory problems as they get older. But the problems in MCI are more significant than those of normal aging. For example, you might forget things more often thanbefore, or you might forget more important things. Some people with MCI later develop a condition called dementia. Dementia is the general term for a group of brain disorders that cause problems with memory and thinking. Dementia is a more serious problem than MCI. People with MCI usually don't have many problems doing their daily tasks and activities. But people with dementia might not be able to do their daily tasks or activities correctly orat all. What are the symptoms of MCI? Memory problems are the most common symptom of MCI. Some people have other types of thinking problems. They might have trouble concentrating, reasoning, or remembering the correct word to use. It canalso be more difficult to make decisions. Some people with MCI might get lost. Some people with MCI might also feel sad, worried, or angry; act in a threatening way; or believe things that aren't true. Other people with MCI might seem less interested in activities or other things that used to be important to them. Some people with MCI are aware of their memory changes and problems. In other cases, family members, friends, or co-workers might notice these problems first. How can my doctor or nurse tell if I have MCI? -- To tell if you have MCI, your doctor or nurse will: Talk with you and your family - They will ask about your symptoms, behavior, mood, and daily activities, and how these have changed over time. They will also ask about your medical conditions and medicines. That's because some medical conditions and medicines can also cause memory problems. In older adults, depression can cause symptoms similar to MCI. Do an exam Ask questions to check your memory and thinking Your doctor might do tests to check that another medical condition isn't causing your symptoms. These tests can include: Blood tests A CT or MRI scan of your brain - These are imaging tests that can create pictures of your brain. More detailed tests to check your memory, language, and thinking - This is called neuropsychological testing because it is done to learn more about how your brain and mind are working. It involves testing how well you are able to: Speak Write and understand language Learn and remember information Use reason and logic Do tasks related to math and numbers NOTE: This type of detailed testing can take 1 to several hours. It is usually done by a doctor called a neuropsychologist. How is MCI treated? Sadly, there really aren't helpful treatments for MCI. As of now, no medicines can prevent MCI fromturning into dementia. If you have a lot of memory problems, your doctor might prescribe a medicine used to treat a type of dementia called Alzheimer disease. These medicines can sometimes help improve symptoms. Plus, your doctor might suggest that you avoid certain medicines, which can impair thinking. Do people with MCI always get dementia? No. Although some people with MCI get dementia later on, some do not. There is no way to know which people with MCI will get dementia. That's why it's important to have regular follow-ups with your doctor. They can follow your symptoms to see if they change or get worse. If your symptoms do get worse, this is a sign that you are more likely to develop dementia. Although most forms of dementia cannot be treated, it can be helpful to know you are at risk. For example, if you know that your problems might affect certain daily tasks or activities, then you can get help in those areas. Plus, if you know that your condition is not likely to improve, you and your family can make plans for the future. --- Ways to keep your brain healthy: -Stay social. Staying social and connected is extremely important for brain health. Having a rich social network has been shown to provide sources of support as well as reduce stress, combat depression, and enhance intellectual stimulation. Some studies have shown that those with significant social interaction have experienced a slower rate of memory decline. -Stay active. Regular exercise has been shown to be helpful for the brain as well as the body! There is no specific activity in particular (ex. walking, swimming, elliptical machine, cycling, Filiberto Chi, etc.). We recommend maintaining your target heart rate for about 30 minutes with aerobic exercise,three or more days per week. Even regular walking is good exercise! Working out with other people may help you stay on track and allow you to maintain being social! -Eat a healthy diet. Poor nutrition may contribute to problems with thinking. Make sure you get a balanced diet with fruits and vegetables, not too much red meat, and some fish (Mediterranean diet has proven to be very effective). Eating meals with others is a great social activity. -Keep your brain active. Brain activity is very important and may help your nerve cell connect witheach other better. It also makes for a healthier, happier lifestyle. Some things that can keep yourbrain active include: Reading Playing cards Brain games or apps such as Lumosity Puzzles, word jumble games Hobbies Listening to music, going to concerts (if able) Going to art museums and galleries -Get good sleep. Sleep is important in forming new memories. We recommend avoiding medicines for sleep due to side effects. If you snore excessively, if your body jerks at night, or if you have what appears to be bad dreams frequently, getting a sleep evaluation may be useful. Some of these problems of sleep can be treated. -Keeping a daily calendar in one place may be helpful, especially having a standard schedule that does not change too much. -Learning something new. Learning something new can help create new neural pathways in your brain. Some examples can be learning a new language, taking up painting, gardening, knitting, etc. documented in this encounterUc [facility] Center03-11-2025 NoteHNO ID: [id number] Author: JUSTINE SOTO OCCA Service: ? Author Type: Motion Picture Film Examiner Type: Progress Notes Filed: 02/06/2025 11:36 Note Text: Nicol Oneill is a 74 year old year old left handed man Accompanied by: patient. 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 History of coronary artery stent placement August resolved Presence of biventricular im plantable cardioverter-defibrillator (ICD) July 11, 2018 resolve d 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 Non-sustained ventricular tachycardia resolved Presence of biventricular im plantable cardioverter-defibrillator (ICD) July 11, 2018 resolve d [facility] Work Phone: [phone]) 808-223908-13-2018 Evaluation note* Diagnosis Onset Date Resolution Status 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 Non-sustained ventricular tachycardia resolved Presence of biventricular im plantable cardioverter-defibrillator (ICD) July 11, 2018 resolve [facility] Work Phone: [phone]) 899-383708-13-2018 Evaluation note* Diagnosis Onset Date Resolution Status 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 Non-sustained ventricular tachycardia resolved Presence of biventricular im plantable cardioverter-defibrillator (ICD) July 11, 2018 resolve d Hyperlipidemia chronic 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 History of coronary artery stent placement August, 2008 resolved Non-sustained ventricular tachycardia resolved Presence of biventricular im plantable cardioverter-defibrillator (ICD) July 11, 2018 resolve d [facility] Work Phone: [phone] 453-112903-16-2007 History of Past illness Narrative* Problem Noted Date Resolved Date CARD DEFIBRILL AUTO IMPLANT IN SITU 02/11/2007 04/23/2011 Overview: ICD-Device Mfg Medtronic Model 7230Cx Hernandez VR Serial Number [id number] Implant Date 07/09/2003 Implanted By Pritesh Lopes MD [employer] Medtronic Model 6947 Serial Number [id number] Location right Implant Date 07/09/2003 Plan: Will recheck ALLERGIC RHINITIS NOS 05/02/2007 Overview: Allergy, airborne subst documented as of this encounter (statuses as of 05/15/2021) [facility] History of Present illness Narrative* 07/10/2003 11:59 PM EDT PATIENT EDUCATION THE FOLLOWING WAS EVALUATED Motivation To Learn: Interested Family/Significant Other Support: None - Unavailable/disinterested Cognitive Ability: Alert and oriented Patient Lear ns Best By: Individual Instruction The Following Influencing Factors Were Barriers To This Educat ion Session: No barriers The Following Physical Limitations Were Barriers To This Education Ses warren: None 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 Advance Directive(s) 04/23/2011 9:43 PM Advance Directive Response Recorded Date/ Time Advance Directives Yes December 18, 2021 11:49am Living Will Yes December 18 11:49am Power of Clay Shop Supervisor Yes December 18, 2021 11:49am Advance Directive Response Recorded Date/ Time Advance Directives Yes December 18, 2021 10:49am Living Will Yes December 18 10:49am Power of Clay Shop Supervisor Yes December 18, 2021 10:49am Documents on File Type Date Recorded 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 Hyperlipidemia Ischemic cardiomyopathy History of coronary artery stent placement Presence of biventricular implantable cardioverter-defibrillator (ICD) Ischemic cardiomyopathy Non-sustained ventricular tachycardia Presence of biventricular implantable cardioverter-defibrillator (ICD) Chief Complaint DOESN'T HAVE REMOTE BOX YET Reason for Visit Ischemic cardiomyopa thy Non-sustained ventricular tachycardia Presence of biventricular implantable cardioverter-defibrillator (ICD) Chief Complaint DOESN'T HAVE REMOTE BOX YET 9 M FU Reason for Visit Ischemic cardiomyopa thy Non-sustained ventricular tachycardia Presence of biventricular implantable cardioverter-defibrillator (ICD) Hyperlipidemia Ischemic cardiomyopathy History of coronary artery stent placement Non-sustained ventricular tachycardia Presence of biventricular implantable cardioverter-defibrillator (ICD) Chief Complaint DOESN'T HAVE REMOTE BOX YET 9 M FU CAD Coronary artery disease Reason for Visit Ischemic cardiomyopa thy Non-sustained ventricular tachycardia Presence of biventricular implantable cardioverter-defibrillator (ICD) Hyperlipidemia Ischemic cardiomyopathy History of coronary artery stent placement Non-sustained ventricular tachycardia Presence of biventricular implantable cardioverter-defibrillator (ICD) Chief Complaint 3 mos remote ICD f/u 6 M FU CARDIOMYOPATHY Reason for Visit Ischemic cardiomyopa thy Non-sustained ventricular tachycardia Presence of biventricular implantable cardioverter-defibrillator (ICD) Hyperlipidemia Ischemic cardiomyopathy History of coronary artery stent placement Non-sustained ventricular tachycardia Presence of biventricular implantable cardioverter-defibrillator (ICD) Chief Complaint Admit Date confusion November 16, 2024 9:45pm Pacer Check Remote January 03, 2025 5 :46am Continuation of care January 10, 2025 4:48pm Chief Complaint Admit Date Pacer Check Remote January 03, 2025 5 :46am Continuation of care January 10, 2025 4:48pm Pacer Check Remote April 03, 2025 8:31pm DEMENTIA May 01, 2025 2:15p m Anxiety May 02, 2025 12:43 pm Reason for Visit Admit Date Memory change May 01, 2025 2:15p m Anxiety May 02, 2025 12:43 pm Family History No Family History Records Found Relationship Condition Age at Onset Recorded Date/T vandana mother Coronary artery disease Unknown Malignant neoplasm Unknown father Coronary artery disease Unknown Myocardial infarction Unknown Sudden cardiac Unknown Summary Purpose Additional Source Comments Source Comments (unrecognize d section and content) In the event this informatio n is protected by the Federal Confidentiality of Alcohol and Drug Abuse Patient Records regulations: The Federal rules restrict any use of the information to criminally investigate or prosecute any alcohol or drug abuse patient.[facility] the event this information is protected by the Federal Confidentiality of Alcohol and Drug Abuse Patient Records regulations: The Federal rules restrict any use of the information to criminally investigate or prosecute any alcohol or drug abuse patient.[facility] the event this information is protected by the Federal Confidentiality of Alcohol and Drug Abuse Patient Records regulations: The Federal rules restrict any use of the information to criminally investigate or prosecute any alcohol or drug abuse patient.[facility] the event this information is protected by the Federal Confidentiality of Alcohol and Drug Abuse Patient Records regulations: The Federal rules restrict any use of the information to criminally investigate or prosecute any alcohol or drug abuse patient.[facility] Reason for Visit (unrecogniz ed section and content) Reason Comments Patient Education Reason Comments Received Outside Medical Records Clinica l notes uploaded into patient's documents Reason Comments New Patient Reason Comments Appointment tried calling [facility] to inform patient that we need to reschedule appointment with dr weeks seeing as the provider will not be avaliable vm was full so i sent my chart and appointment reminder Goals (unrecognized section and content) Goals may be documented in a n alternate sectionGoals may be documented in an alternate sectionGoals may be documented in an alternate sectionGoals may be documented in an alternate sectionGoals may be documented in an alternate sectionGoals may be documented in an alternate sectionGoals may be documented in an alternate section Care Teams (unrecognized sec tion and content) Team Status: Active Member Role Status Dates Dr. Bora Brush MD Family Provider Active Dr. Bora Brush MD Primary Care Provider Activ e Team Status: Inactive Member Role Status Dates Dr. Bora Brush MD Primary Care Provider, Refe rring Provider Active Venessa Kwan FOOD SERVICE ASSISTANT, FOOD SERVICE ASSISTANT-C Attending Provider Active Team Status: Inactive Member Role Status Dates Dr. Bora Brush MD Primary Care Provider Activ e Blessing Gan Active Dr. Hans Logan MD Attending Provider, Referring Pro vider Active Team Status: Active Member Role Status Dates Dr. Bora Brush MD Primary Care Provider Activ e Dr. Hans Logan MD Attending Provider Active Team Status: Active Member Role Status Dates Dr. Bora Brush MD Primary Care Provider Activ e Venessa Kwan FOOD SERVICE ASSISTANT, FOOD SERVICE ASSISTANT-C Attending Provider Active Team Status: Inactive Member Role Status Dates Dr. 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 Isabel Brush MD Family Provider Active Dr. Isabel Brush MD Primary Care Provider Acti ve Team Status: Inactive Member Role Status Dates Dr. Isabel Brush MD Primary Care Provider Acti ve Start: November 16, 2024 End: November 17, 2024 Dr. Art Tom MD Attending Provider Active Start: November 16, 2024 End: November 17, 2024 Dr. Art Tom MD Emergency Provider Active Start: November 16, 2024 End: November 17, 2024 Team Status: Inactive Member Role Status Dates Dr. Isabel Brush MD Primary Care Provider Acti ve Start: January 03, 2025 End: January 03, 2025 Dr. Hans Logan MD Attending Provider Active S tart: January 03, 2025 End: January 03, 2025 Dr. Hans Logan MD Referring Provider Active S tart: January 03, 2025 End: January 03, 2025 Team Status: Inactive Member Role Status Dates Dr. Isabel Brush MD Primary Care Provider Acti ve Start: January 10, 2025 End: February 19, 2025 Dr. Isabel Brush MD Attending Provider Active Start: January 10, 2025 End: February 19, 2025 Dr. Hans Logan MD Other Provider Active Start : January 10, 2025 End: February 19, 2025 Team Status: Inactive Member Role Status Dates Dr. Isabel Brush MD Primary Care Provider Acti ve Start: April 03, 2025 End: April 03, 2025 Dr. Hans Logan MD Attending Provider Active S tart: April 03, 2025 End: April 03, 2025 Dr. Hans Logan MD Referring Provider Active S tart: April 03, 2025 End: April 03, 2025 Team Status: Inactive Member Role Status Dates Dr. Isabel Brush MD Primary Care Provider Acti ve Start: May 01, 2025 End: May 01, 2025 Dr. Isabel Brush MD Referring Provider Active Start: May 01, 2025 End: May 01, 2025 Dr. Siddhartha León MD Attending Provider Active Start: May 01, 2025 End: May 01, 2025 Team Status: Inactive Member Role Status Dates Dr. Isabel Brush MD Primary Care Provider Acti ve Start: May 02, 2025 End: May 02, 2025 VERONICA Zelaya Attending Provider Active S tart: May 02, 2025 End: May 02, 2025 (unrecognized sect ion and content) No Status Records FoundNo Status Records FoundNo Status Records Found INFORMATION SOURCE (unrecogn ized section and content) DATE CREATED AUTHOR 11/10/2024 [facility] DATE CREATED AUTHOR AUTHOR'S ORGANIZ ATION 02/12/2025 [facility] DATE CREATED AUTHOR AUTHOR'S ORGANIZ ATION 06/10/2025 [facility] FOR RECORDS PERTAINING TO PATIENTS WHO ARE OR HAVE BEEN ENROLLED IN A CHEMICAL DEPENDENCY/SUBSTANCEABUSE PROGRAM, SOME INFORMATION MAY BE OMITTED. This clinical summary was aggregated from multiple sources. Caution should be exercised in using it in the provision of clinical care. This summary normalizes information from multiple sources, and as a consequence, information in this document may materially change the coding, format and clinical context of patient data. In addition, data may be omitted in some cases. CLINICAL DECISIONS SHOULD BE BASED ON THE PRIMARY CLINICAL RECORDS. [employer] provides no warranty or guarantee of the accuracy or completeness of information in this document.
--- NOTE | 2025-06-15 12:42 | STRESSREP ---
Stress Test Report Pharmacologic myocardial perfusion stress test. 75-year-old man with a history of coronary disease status post ICD implantation. Resting EKG demonstrates AV sequential pacing with a rate of 64 bpm. Resting blood pressure is 110/72 mmHg. 0.4 mg of regadenoson was infused per usual protocol followed by rapid intravenous saline flush injection. Continuous EKG monitoring was performed. The maximum heart rate was 74 bpm which was 50% of max impacted heart rate the maximum workload was 1 metabolic equivalent. At rest there were no ST or T wave changes noted to suggest ischemia and at peak infusion nonspecific ST changes were noted which did not meet the criteria for ischemia. No clinical angina is noted. The final blood pressure was 118/74 mmHg. Myocardial perfusion protocol. 12.0 mCi of technetium 99m sestamibi was injected at rest. 0.4 mg of regadenoson was infused per usual protocol. At peak infusion 36.3 mCi of technetium 99m sestamibi was injected stress images were obtained stress and rest images were reconstructed and compared in the short axis vertical long and horizontal long axis. Gated images were also obtained. Perfusion SPECT analysis: Review of the stress images demonstrate normal uptake of tracer noted in all areas of the myocardium. There is an extensive defect noted involving the basal to mid inferior wall on the stress test. The resting images demonstrate a similar pattern suggesting a previous extensive inferior wall infarct. No areas of reversibility are noted suggest ischemia. Gated SPECT analysis: The gated ejection fraction is 44%. Conclusion: Pharmacologic myocardial perfusion stress test with no evidence of ischemia present. Previous extensive inferior infarct present. Ischemic cardiomyopathy.
== END | disposition home or self-care (01) ==
LOC: CVS 07:08
PROVIDERS: PCP Family Medicine; Referring Provider Student in an Organized Health Care Education/Training Program; Visit Provider Student in an Organized Health Care Education/Training Program
DX: I25.5 Ischemic cardiomyopathy (principal)
CPT/HCPCS: 78452; 93017; 93306; A9500; Q9957; A4216; C8929; J2785

== ENCOUNTER → 2025-09-06 | Outpatient (CLI) | payer MEDICARE, OTHER, SELFPAY | END | disposition home or self-care (01) | LOC: MTLAB 14:00 | PROVIDERS: PCP Family Medicine; Referring Provider Psychiatry & Neurology Neurology; Visit Provider Psychiatry & Neurology Neurology | DX: F03.90 Unspecified dementia, unspecified severity, without behavioral disturbance, psychotic disturbance, mood disturbance, and anxiety (principal) | CPT/HCPCS: 36415; 81401 ==

== ENCOUNTER → 2025-10-10 | Outpatient (CLI) | payer MEDICARE, OTHER, SELFPAY ==
[2025-10-10 18:21] LABS: PSA,Total - Annual Screen 3.28 ng/mL (0.02-4.00)
== END | disposition home or self-care (01) ==
LOC: MFPLAB 14:15
PROVIDERS: PCP Family Medicine
DX: Z12.5 Encounter for screening for malignant neoplasm of prostate (principal)
CPT/HCPCS: 36415; 84153; G0103

== ENCOUNTER → 2025-11-07 | Outpatient (CLI) | payer MEDICARE, OTHER, SELFPAY ==
[2025-11-07 18:09] LABS: Hematocrit 45.9 % (40-54); Hemoglobin 15.7 g/dL (13.0-16.5); Mean Corp Hgb Conc 34.2 g/dL (32-36); Mean Corpuscular Volume 91.3 fL (80-94); Mean Platelet Vol. 9.9 fl (6.2-12.0); Platelet Count 193 K/mm3 (150-450); RBC Distribution Width CV 13.0 % (11.6-14.6); RBC Distribution Width SD 42.9 fl (35.1-43.9); Red Blood Count 5.03 M/mm3 (4.6-6.2); White Blood Count 9.7 K/mm3 (4.4-11.0)
[2025-11-07 18:24] LABS: AST(SGOT) 22 U/L (<=37); Alanine Aminotransfer ALT/SGPT 26 U/L (<=46); Albumin, Serum 4.4 g/dL (3.4-4.8); Alkaline Phosphatase 70 U/L (40-129); Anion Gap 11 (5-15); BUN 16 mg/dL (4-19); BUN/Creat Ratio 15.7 RATIO (10-20); Calcium,Total 9.7 mg/dL (7.6-11.0); Carbon Dioxide 23.5 mmol/L (21.0-32.0); Chloride 103 mmol/L (98-108); Globulin 2.7 g/dL (2.2-4.2); Glucose 89 mg/dL (70-99); Potassium 4.3 mmol/L (3.3-5.1)
== END | disposition home or self-care (01) ==
LOC: MTLAB 16:37
PROVIDERS: PCP Family Medicine; Referring Provider Family Medicine; Visit Provider Family Medicine
DX: F03.90 Unspecified dementia, unspecified severity, without behavioral disturbance, psychotic disturbance, mood disturbance, and anxiety (principal)
CPT/HCPCS: 36415; 80053; 84443; 85027; 85652